=== PATIENT | female | born 1955 | race Caucasian/White ===

== ENCOUNTER 2017-11-20 08:49 | Observation (INO) ==
--- NOTE | 2017-11-20 09:27 | Cat Scan Report ---
CLINICAL INFORMATION: History of multiple sclerosis. Code stroke COMPARISON: 01/14/2008 TECHNIQUE: Axial noncontrast-enhanced images through the brain. FINDINGS: No acute intracranial hemorrhage. No subdural hematoma. No subarachnoid hemorrhage. No intra-axial hematoma. There is extensive white matter disease in a predominantly periventricular distribution. Appearance is consistent with multiple sclerosis. No new focal intra-axial attenuation abnormality. No localized mass effect. No acute abnormality. There is cerebral atrophy are consistent with multiple sclerosis. No calvarial lesions. Temporal bones are negative. IMPRESSION: 1. Severe white matter abnormality consistent with multiple sclerosis 2. No acute intracranial abnormality. No intracranial hemorrhage The exam was performed using radiation dose optimization techniques including, but not limited to, automated exposure control, adjustment of the mA and/or kV according to patient size and use of iterative reconstruction technique. Interpreted and Authenticated by: Haroon Sandoval 11/20/17
[2017-11-20 09:49] LABS: Basophils # (Auto) 0.1 K/mcL (0.0-0.3); Basophils % (Auto) 0.7 % (0.0-2.0); Eosinophils # (Auto) 0.2 K/mcL (0.0-0.7); Eosinophils % (Auto) 1.5 % (0.0-7.0); Granulocytes % (Auto) 88.1 % (38.0-78.0); Lymphocytes # (Auto) 0.7 K/mcL (1.5-4.8); Lymphocytes % (Auto) 5.7 % (15.5-49.0); Mean Cell Volume 94.7 fL (80.0-100.0); Mean Corpuscular HGB Conc 33.8 g/dL (31.0-36.0); Monocytes # (Auto) 0.5 K/mcL (0.1-0.9); Platelet Count 281 K/mcL (140-440); RBC 4.91 M/mcL (4.00-5.20); Red Cell Distribution Width 13.7 % (11.5-14.5)
[2017-11-20 10:10] LABS: ALT/SGPT 58 U/l (0-40); Albumin 3.8 gm/dL (3.2-5.2); Albumin/Globulin Ratio 1.3 (1.0-2.3); Alkaline Phosphatase 76 U/L (39-117); Blood Urea Nitrogen 16 mg/dl (8-23)
[2017-11-20 11:20] LABS: Appearance,Urine TURBID; Bacteria,Urine MANY /hpf (0); Bilirubin,Urine NEG (NEG); Color,Urine YELLOW; Glucose,Urine (UA) NEGATIVE (NEG); Leukocyte Esterase,Urine 250 /uL (NEG); Protein,Urine 100 mg/dL (NEG); Specific Gravity,Urine 1.013 (1.000-1.035); Urine Amorphous Crystals MOD /hpf (0); Urine Blood 0.2 mg/dL (<0.03); Urine RBC 100 /hpf (0-1); Urine Squamous Epithelial Cell 17 /hpf (0-4); Urine Transitional Epi Cells 2 /hpf (0-2); Urine WBC > 182 /hpf (0-4); Urobilinogen,Urine NEG (NEG)
[2017-11-20] MEDS ORDERED: cefTRIAXone 1 GM VIAL IV ONE ×2 (11:28→20:00)
[2017-11-20] MEDS ORDERED: 0.9 % SODIUM CHLORIDE 3,000 ML IV ONE (11:30)
--- NOTE | 2017-11-20 16:11 | Emergency Department Note ---
Neuro HPI - General Chief Complaint: Stroke Symptoms Stated Complaint: Stroke symptoms Time Seen by Provider: 11/20/17 09:11 Source: family, EMS Mode of arrival: EMS Limitations: no limitations - History of Present Illness HPI Narrative: 62-year-old female with known severe MS that is bedbound comes in for slurred speech and facial droop starting this morning. was last seen well 8 PM last night so it is unclear when this actually happened. She is also had increased somnolence and a temperature 100.2. She is not breathing as well as she usually does. She has additional findings of left arm weakness. NIH stroke scale shows 10 and ABCD2 score is 5 Notably she has a history of multiple urinary tract infections last seen by Trina DOMÍNGUEZ in urology and placed on Macrobid for 1 dose so far. - Related Data Home Medications: Home Medications Medication Instructions Recorded Confirmed aspirin 81 mg tablet,delayed 81 mg PO QHS tab 03/27/15 11/20/17 release coenzyme Q10 10 mg capsule 30 mg PO QDAY cap 03/27/15 11/20/17 flaxseed 1,000 mg capsule 1,000 mg .ROUTE .MEDSUPPLY 03/27/15 11/20/17 cranberry 400 mg capsule 400 mg PO DAILY 08/21/15 11/20/17 magnesium oxide 400 mg capsule 400 mg PO QHS 09/23/16 11/20/17 baclofen 10 mg tablet 10 mg PO QHS 30 Days #30 tab 03/30/17 11/20/17 omega-3 fatty acids 1 cap PO QDAY 03/30/17 11/20/17 oxcarbazepine 150 mg tablet 150 mg PO BID 30 Days #60 tab 03/30/17 11/20/17 Nitrofurantoin Macrocrystal 100 mg PO Q12H 11/20/17 11/20/17 [Nitrofurantoin] Gabapentin [Neurontin] 600 mg PO DAILY 11/21/17 11/21/17 Gabapentin [Neurontin] 900 mg PO HS 11/21/17 11/21/17 Previous Rx's Medication Instructions Recorded simvastatin 20 mg tablet 20 mg PO QPM #30 tab 06/07/17 solifenacin 5 mg tablet 5 mg PO QDAY #90 tab 10/25/17 Allergies/Adverse Reactions: Allergies Allergy/AdvReac Type Severity Reaction Status Date / Time Sulfa (Sulfonamide AdvReac Verified 11/20/17 08:51 Antibiotics) tape Allergy Unknown Unknown Uncoded 09/15/17 10:01 Review of Systems All systems ED: reviewed and negative except as stated. Past Medical History - Past Medical History Medical history: Reports: hyperlipidemia, other (Multiple sclerosis with neurogenic bladder and incontinence, recurrent UTIs, trigeminal neuralgia) UNDERWRITER history: Reports: bilateral tubal ligation Surgical history ED: Reports: cholecystectomy, CHELSEY/BSO - Social History smoking status: Former smoker Physical Exam Overweight female no acute distress resting comfortably. Normocephalic atraumatic. Conjunctive are clear sclerae nonicteric. No nasal discharge or congestion. Oropharynx is pink and moist. There is a slight facial droop on the left. Neck is supple without lymphadenopathy thyromegaly. Heart is regular rate and rhythm no murmur appreciated. Lungs are clear auscultation bilaterally without wheezes rales rhonchi or respiratory distress. Abdomen soft nontender nondistended. She is wearing an adult diaper. +2 radial pulse. No pedal edema. She has not moving her left leg well and it does appear decreased sensation. However this is not new. Left arm seems to be less well controlled and regional driver is weaker. Also on cranial nerve exam she does not want to move her eyes to the left although she has normal movement to the right up and down. It is unclear what is chronic but left-sided arm findings and facial droop to appear to be new per her significant other who is there for the interview and exam Limitations: no limitations Course Vital Signs Temperature 100.2 F H 11/20/17 08:51 Pulse Rate 137 H 11/20/17 08:51 Respiratory Rate 20 11/20/17 08:51 Blood Pressure 122/71 11/20/17 08:51 Pulse Oximetry (%) 93 11/20/17 08:51 Temperature 98.8 F 11/21/17 00:00 Pulse Rate 82 11/20/17 18:01 Respiratory Rate 16 11/21/17 00:00 Blood Pressure 139/82 11/21/17 00:00 Pulse Oximetry (%) 93 11/21/17 00:00 Neuro Symptoms/Deficit - Lab Data Lab results reviewed: Yes I reviewed the patient's lab results. Result diagrams: 11/21/17 03:30 11/21/17 03:30 Lab Results 11/20/17 11/20/17 11/20/17 Range/Units 09:19 09:19 09:19 WBC 12.8 H (4.5-11.0) K/mcL RBC 4.91 (4.00-5.20) M/mcL Hgb 15.7 H (12.0-15.0) g/dL Hct 46.5 (36.0-48.0) % POC Hct 48.0 (36.0-48.0) % MCV 94.7 (80.0-100.0) fL MCH 32.0 (26.0-34.0) pg MCHC 33.8 (31.0-36.0) g/dL RDW 13.7 (11.5-14.5) % Plt Count 281 (140-440) K/mcL MPV 9.5 (7.4-10.4) fL Gran % 88.1 H (38.0-78.0) % Lymph % (Auto) 5.7 L (15.5-49.0) % [place] % (Auto) 4.0 (1.0-12.0) % Eos % (Auto) 1.5 (0.0-7.0) % Baso % (Auto) 0.7 (0.0-2.0) % Gran # 11.3 H (1.8-8.0) K/mcL Lymph # (Auto) 0.7 L (1.5-4.8) K/mcL [place] # (Auto) 0.5 (0.1-0.9) K/mcL Eos # (Auto) 0.2 (0.0-0.7) K/mcL Baso # (Auto) 0.1 (0.0-0.3) K/mcL POC PT 12.9 (11.9-14.5) sec POC INR 1.1 (0.9-1.2) APTT 31 (20-37) sec POC Sodium 142 (133-145) mmol/L Sodium 140 (133-145) mmol/L POC Potassium 3.8 (3.3-5.1) mmol/L Potassium 3.9 (3.3-5.1) mmol/L POC Chloride 108 (96-108) mmol/L Chloride 103 (96-108) mmol/L Carbon Dioxide 20 L (22-30) mmol/L POC Total CO2 24 (22-30) mmol/L Anion Gap 17.0 H (8-16) POC BUN 17 (8-23) mg/dl BUN 16 (8-23) mg/dl Creatinine 1.0 (0.6-1.1) mg/dl POC Creatinine 0.9 (0.6-1.1) mg/dl GFR Calculation 61 Glucose 134 H (70-105) mg/dL POC Glucose 139 H (70-105) mg/dL Calcium 8.9 (8.6-10.4) mg/dl POC WB Ioniz Calcium 1.08 L (1.16-1.32) mmol/L Magnesium (1.6-2.5) mg/dL Total Bilirubin 0.6 (0.0-1.0) mg/dL AST 34 (0-37) U/l ALT 58 H (0-40) U/l Alkaline Phosphatase 76 (39-117) U/L Troponin T (0-0.03) ng/ml Total Protein 6.7 (5.9-8.4) gm/dL Albumin 3.8 (3.2-5.2) gm/dL Globulin 2.9 (2.2-3.7) gm/dL Albumin/Globulin Ratio 1.3 (1.0-2.3) Urine Color Urine Appearance Urine pH (5.0-9.0) Ur Specific [place] (1.000-1.035) Urine Protein (NEG) mg/dL Urine Glucose (UA) (NEG) mg/dL Urine Ketones (NEG) mg/dL Urine Occult Blood (<0.03) mg/dL Urine Nitrate (NEG) Urine Bilirubin (NEG) mg/dL Urine Urobilinogen (NEG) mg/dL Ur Leukocyte Esterase (NEG) /uL Urine RBC (0-1) /hpf Urine WBC (0-4) /hpf Ur Squamous Epith Cells (0-4) /hpf Ur Transition Epith Cell (0-2) /hpf Amorphous Crystals (0) /hpf Urine Bacteria (0) /hpf Ur Culture Indicated? Influenza A (Rapid) Influenza B (Rapid) 11/20/17 11/20/17 11/20/17 Range/Units 09:19 09:19 10:18 WBC (4.5-11.0) K/mcL RBC (4.00-5.20) M/mcL Hgb (12.0-15.0) g/dL Hct (36.0-48.0) % POC Hct (36.0-48.0) % MCV (80.0-100.0) fL MCH (26.0-34.0) pg MCHC (31.0-36.0) g/dL RDW (11.5-14.5) % Plt Count (140-440) K/mcL MPV (7.4-10.4) fL Gran % (38.0-78.0) % Lymph % (Auto) (15.5-49.0) % [place] % (Auto) (1.0-12.0) % Eos % (Auto) (0.0-7.0) % Baso % (Auto) (0.0-2.0) % Gran # (1.8-8.0) K/mcL Lymph # (Auto) (1.5-4.8) K/mcL [place] # (Auto) (0.1-0.9) K/mcL Eos # (Auto) (0.0-0.7) K/mcL Baso # (Auto) (0.0-0.3) K/mcL POC PT (11.9-14.5) sec POC INR (0.9-1.2) APTT (20-37) sec POC Sodium (133-145) mmol/L Sodium (133-145) mmol/L POC Potassium (3.3-5.1) mmol/L Potassium (3.3-5.1) mmol/L POC Chloride (96-108) mmol/L Chloride (96-108) mmol/L Carbon Dioxide (22-30) mmol/L POC Total CO2 (22-30) mmol/L Anion Gap (8-16) POC BUN (8-23) mg/dl BUN (8-23) mg/dl Creatinine (0.6-1.1) mg/dl POC Creatinine (0.6-1.1) mg/dl GFR Calculation Glucose (70-105) mg/dL POC Glucose (70-105) mg/dL Calcium (8.6-10.4) mg/dl POC WB Ioniz Calcium (1.16-1.32) mmol/L Magnesium 1.9 (1.6-2.5) mg/dL Total Bilirubin (0.0-1.0) mg/dL AST (0-37) U/l ALT (0-40) U/l Alkaline Phosphatase (39-117) U/L Troponin T < 0.01 (0-0.03) ng/ml Total Protein (5.9-8.4) gm/dL Albumin (3.2-5.2) gm/dL Globulin (2.2-3.7) gm/dL Albumin/Globulin Ratio (1.0-2.3) Urine Color Urine Appearance Urine pH (5.0-9.0) Ur Specific [place] (1.000-1.035) Urine Protein (NEG) mg/dL Urine Glucose (UA) (NEG) mg/dL Urine Ketones (NEG) mg/dL Urine Occult Blood (<0.03) mg/dL Urine Nitrate (NEG) Urine Bilirubin (NEG) mg/dL Urine Urobilinogen (NEG) mg/dL Ur Leukocyte Esterase (NEG) /uL Urine RBC (0-1) /hpf Urine WBC (0-4) /hpf Ur Squamous Epith Cells (0-4) /hpf Ur Transition Epith Cell (0-2) /hpf Amorphous Crystals (0) /hpf Urine Bacteria (0) /hpf Ur Culture Indicated? Influenza A (Rapid) Presumed negative Influenza B (Rapid) Presumed negative 11/20/17 Range/Units 10:37 WBC (4.5-11.0) K/mcL RBC (4.00-5.20) M/mcL Hgb (12.0-15.0) g/dL Hct (36.0-48.0) % POC Hct (36.0-48.0) % MCV (80.0-100.0) fL MCH (26.0-34.0) pg MCHC (31.0-36.0) g/dL RDW (11.5-14.5) % Plt Count (140-440) K/mcL MPV (7.4-10.4) fL Gran % (38.0-78.0) % Lymph % (Auto) (15.5-49.0) % [place] % (Auto) (1.0-12.0) % Eos % (Auto) (0.0-7.0) % Baso % (Auto) (0.0-2.0) % Gran # (1.8-8.0) K/mcL Lymph # (Auto) (1.5-4.8) K/mcL [place] # (Auto) (0.1-0.9) K/mcL Eos # (Auto) (0.0-0.7) K/mcL Baso # (Auto) (0.0-0.3) K/mcL POC PT (11.9-14.5) sec POC INR (0.9-1.2) APTT (20-37) sec POC Sodium (133-145) mmol/L Sodium (133-145) mmol/L POC Potassium (3.3-5.1) mmol/L Potassium (3.3-5.1) mmol/L POC Chloride (96-108) mmol/L Chloride (96-108) mmol/L Carbon Dioxide (22-30) mmol/L POC Total CO2 (22-30) mmol/L Anion Gap (8-16) POC BUN (8-23) mg/dl BUN (8-23) mg/dl Creatinine (0.6-1.1) mg/dl POC Creatinine (0.6-1.1) mg/dl GFR Calculation Glucose (70-105) mg/dL POC Glucose (70-105) mg/dL Calcium (8.6-10.4) mg/dl POC WB Ioniz Calcium (1.16-1.32) mmol/L Magnesium (1.6-2.5) mg/dL Total Bilirubin (0.0-1.0) mg/dL AST (0-37) U/l ALT (0-40) U/l Alkaline Phosphatase (39-117) U/L Troponin T (0-0.03) ng/ml Total Protein (5.9-8.4) gm/dL Albumin (3.2-5.2) gm/dL Globulin (2.2-3.7) gm/dL Albumin/Globulin Ratio (1.0-2.3) Urine Color Yellow Urine Appearance Turbid Urine pH 7.0 (5.0-9.0) Ur Specific [place] 1.013 (1.000-1.035) Urine Protein 100 A (NEG) mg/dL Urine Glucose (UA) Negative (NEG) mg/dL Urine Ketones 5/tr A (NEG) mg/dL Urine Occult Blood 0.2 A (<0.03) mg/dL Urine Nitrate Pos A (NEG) Urine Bilirubin Neg (NEG) mg/dL Urine Urobilinogen Neg (NEG) mg/dL Ur Leukocyte Esterase 250 A (NEG) /uL Urine RBC 100 H (0-1) /hpf Urine WBC > 182 H (0-4) /hpf Ur Squamous Epith Cells 17 H (0-4) /hpf Ur Transition Epith Cell 2 (0-2) /hpf Amorphous Crystals Mod A (0) /hpf Urine Bacteria Many A (0) /hpf Ur Culture Indicated? No Influenza A (Rapid) Influenza B (Rapid) - Radiology Data Radiology results reviewed: Yes I reviewed the patient's radiology results. CT scan of the head shows no change since 2007 but does show chronic findings of severe MS white matter changes MRI and MRA of the brain showed no acute findings - EKG Data EKG attestation: Yes I reviewed and interpreted this EKG. EKG results narrative: EKG shows a rate of [address] depression in 1 to aVL V2 through V6-these are mild. [place]. Mildly long QT. I do not have a comparison Disposition Pt seen by CROWNING HAMMER OPERATOR/PA only: No Clinical Impression: Multiple sclerosis TIA (transient ischemic attack) Qualifiers: Transient cerebral ischemia type: unspecified Qualified Code(s): G45.9 - Transient cerebral ischemic attack, unspecified Urinary tract infection Qualifiers: Urinary tract infection type: acute cystitis Hematuria presence: with hematuria Qualified Code(s): N30.01 - Acute cystitis with hematuria Summary: Usually she is worked up for CVA/TIA versus other pathology. Despite her high NIH score she would not be eligible for TPA as last seen normal was 8 PM last night and she is out of the [address] scan was negative she has evidence of UTI which may account for confusion and slurred speech-she has had that before with previous UTIs. We started Rocephin for that Her left arm as well as the confusion and slurred speech did resolve over the course of her hospital stay but it is unclear if this is a TIA and so MRI/MRA of brain was ordered-this did not show acute findings either Was uncomfortable letting her go home as she clearly had new neurologic deficit this morning. ABCD 2 score is elevated and so recommended for observation overnight to further sort out issues. Dr. Hall the hospitalist agreed to accept the patient for further care and evaluation Disposition: Xfer As Inpt ([facility]) Condition: Fair
[2017-11-20] MEDS ORDERED: ONDANSETRON 4 MG/2 ML VIAL IV PRN (19:35)
[2017-11-20] MEDS ORDERED: NALOXONE HCL 0.4 MG/ML VIAL IV PRN (19:35)
[2017-11-20] MEDS ORDERED: ACETAMINOPHEN 325 MG TABLET PO PRN (19:35)
--- NOTE | 2017-11-20 19:42 | Internal Med History&Physical ---
Medical - H&P: HPI Patient information: Note initiated : 11/20/17 at 7:39 pm Service Date, if different from initiated Date: [] Patient: Bridgette Cuevas 62 y/o F admitted on 11/20/17 for Stroke symptoms. Chief Complaint: [] History of present illness: Ms. Cuevas is a 62 year old Female with severe multiple sclerosis, bedbound often times and ambulates with the use of a wheelchair living at home with her boyfriend caregiver presents to the emergency room with acute neurological symptoms. Patient has been struggling with recurrent urinary tract infections for the last 2 months. Her primary care physician has given her 2 rounds of antibiotics and cultures have been mixed as per the patient. The patient was okay yesterday when she went to bed, this morning when she woke up around 830 the patient caregiver noticed that the patient is more confused drowsy had slurring of speech and had weakness on the left side of the body. Some documentation the ED notes facial weakness however the patient caregiver clearly denied any change in the facial symmetry when he saw the patient in the morning. There was a concern that the patient was not able to move her left leg wiggle her left toes and had decreased sensation on the left side of the leg. She also was not able to raise the left hand as high as possible. Given that she was out the window for stroke activation, stroke team was not consulted. Patient underwent a head CT in the emergency room which was reported as negative, however had significant multiple sclerosis. The patient then later on underwent an MRI of the head as well as angiogram of the head which according to the ED physician is reported as negative. In the emergency room patient had low-grade temperature with a temperature of 100.2, was tachycardic ranging from 90-140, blood pressure was stable and she was saturating 99% on room air. The patient's EKG was sinus tachycardia, her UA was suggestive of a urinary tract infection, flu test was negative, she had elevated leukocytosis with WBC count of 12.8, hemoglobin 15 platelets 281. Basic metabolic profile is unremarkable creatinine is 1. Given that patient had acute neurological symptoms which resolved during the ER stay, the fact that she has a UTI patient was admitted to the hospital for further management. All systems: reviewed and no additional remarkable complaints except as stated Medical - H&P: PMH Medical history: Medical History (Last Reviewed 09/15/17 @ 10:17 by CATRACHITA Goldsmith) Trigeminal neuralgia (Chronic) Urinary tract infection (Chronic) Urinary incontinence (Chronic) Spasm of muscle (Chronic) Personal history of urinary tract infection (Chronic) Pain in limb (Chronic) Obesity (Chronic) Neurogenic bladder (Chronic) Multiple sclerosis (Chronic) Hyperlipidemia (Chronic) Hip fracture (Chronic) Fatigue (Chronic) Hypertonicity of bladder (Chronic) Surgical history: Past Surgical History (Last Reviewed 09/15/17 @ 10:17 by CATRACHITA Goldsmith) History of tubal ligation (Chronic) S/P CHELSEY-BSO (Chronic) History of cholecystectomy (Chronic) Pertinent family history: Family History (Last Reviewed 09/15/17 @ 10:17 by CATRACHITA Goldsmith) Father Rheumatoid arthritis Essential hypertension Grandmother Diabetes mellitus Essential hypertension Malignant neoplasm of ovary Mother Essential hypertension Migraine Medical - H&P: Meds Home Medications Medication Instructions Recorded Confirmed Type aspirin 81 mg tablet,delayed 81 mg PO QDAY tab 03/27/15 09/15/17 History release calcium carbonate 500 mg (1,250 1 tab PO QDAY tab 03/27/15 09/15/17 History mg)-vitamin D3 125 unit tablet coenzyme Q10 10 mg capsule 30 mg PO QDAY cap 03/27/15 09/15/17 History flaxseed 1,000 mg capsule See Dose Instructions .ROUTE 03/27/15 09/15/17 History .MEDSUPPLY underpads See Dose Instructions .ROUTE 03/27/15 09/15/17 History .MEDSUPPLY cranberry 400 mg capsule 400 mg PO BID 08/21/15 09/15/17 History magnesium oxide 400 mg capsule 400 mg PO QDAY 09/23/16 09/15/17 History Briefs, Gloves and [place] Vinyl #1 each 11/17/16 09/15/17 Rx Underpad baclofen 10 mg tablet 10 mg PO QDAY 30 Days #30 tab 03/30/17 09/15/17 History gabapentin 300 mg capsule 2,100 mg PO QDAY 30 Days #210 cap 03/30/17 09/15/17 History omega-3 fatty acids 1 cap PO QDAY 03/30/17 09/15/17 History oxcarbazepine 150 mg tablet 150 mg PO BID 30 Days #60 tab 03/30/17 09/15/17 History simvastatin 20 mg tablet 20 mg PO QPM #30 tab 06/07/17 09/15/17 Rx solifenacin 5 mg tablet 5 mg PO QDAY #90 tab 10/25/17 Rx nitrofurantoin macrocrystal 100 mg 100 mg PO Q12H 7 Days #14 cap 11/19/17 Rx capsule Allergies Allergy/AdvReac Type Severity Reaction Status Date / Time Sulfa (Sulfonamide AdvReac Verified 11/20/17 08:51 Antibiotics) tape Allergy Unknown Unknown Uncoded 09/15/17 10:01 Medical - H&P: Exam - Constitutional Vitals: Temp Pulse Resp BP Pulse Ox 100.2 F H 82 23 H 112/78 95 11/20/17 08:51 11/20/17 18:01 11/20/17 18:48 11/20/17 18:01 11/20/17 18:01 Exam: GENERAL: The patient is a well-developed, well-nourished in no apparent distress. Is alert and oriented x3. Patient is obese VITAL SIGNS: Reviewed and as noted elsewhere. HEENT: Head is normocephalic and atraumatic. Extraocular muscles are intact. Pupils are equal, round, and reactive to light. Nares appeared normal. Mouth appears any without lesions. Mucous membranes are moist. NECK: Normal to inspection, Supple, No lymphadenopathy or thyromegaly. LUNGS: Air entry equal on both sides, no wheezing, crackles or rhonchi noted. No accessory muscles of respiration HEART: Regular rate and rhythm normal, S1 and S2 heard, no Gallop, S3 or Rub Noted, No Gross murmur heard. ABDOMEN: Soft, nontender, and nondistended. Positive bowel sounds. No hepatosplenomegaly was noted. EXTREMITIES: No cyanosis, clubbing, rash, lesions or edema. NEUROLOGIC: Patient is alert oriented 3, cranial nerves are negative, patient has squint on ocular exam which patient reports is chronic, pupils are reactive to light bilaterally and symmetrical. The patient has good extraocular movements. The patient motor strength is approximately 4 x 5 in bilateral upper extremities and 3 x 5 in bilateral lower extremities. Her sensations are symmetrical in all 4 extremities. The overall weakness but is noticed is attributed to multiple sclerosis, patient notes that she is at her baseline neurological function PSYCHIATRIC: Normal affect, Normal Mood. Appropriate Behavior. SKIN: No ulceration or wounds noted, No jaundice, No rash noted. Medical - H&P: Reslt - Labs CBC & Chem 7: 11/20/17 09:19 11/20/17 09:19 Labs: Short CBC 11/20/17 Range/Units 09:19 WBC 12.8 H (4.5-11.0) K/mcL Hgb 15.7 H (12.0-15.0) g/dL Hct 46.5 (36.0-48.0) % Plt Count 281 (140-440) K/mcL BMP 11/20/17 09:19 Sodium 140 Potassium 3.9 Chloride 103 Carbon Dioxide 20 L BUN 16 Creatinine 1.0 Glucose 134 H Calcium 8.9 Cardiac Enzymes 11/20/17 Range/Units 09:19 Troponin T < 0.01 (0-0.03) ng/ml Liver Function 11/20/17 Range/Units 09:19 Total Bilirubin 0.6 (0.0-1.0) mg/dL AST 34 (0-37) U/l ALT 58 H (0-40) U/l Alkaline Phosphatase 76 (39-117) U/L Albumin 3.8 (3.2-5.2) gm/dL Urine 11/20/17 Range/Units 10:37 Urine Color Yellow Urine Appearance Turbid Urine pH 7.0 (5.0-9.0) Ur Specific [place] 1.013 (1.000-1.035) Urine Protein 100 A (NEG) mg/dL Urine Glucose (UA) Negative (NEG) mg/dL Medical - H&P: A/P - Narrative A/P Narrative: A/P TIA Pseudoflare up of MS Urinary tract infection Hyperlipidemia Hypertension Chr pain Trigeminial Neuralgia Plan Observe on tele IV rocephin for UTI, await culture results Not entirely sure the patient had a TIA or just with exacerbation of MS however the patient had predominantly left-sided symptoms and dysarthria without a facial involvement it could be that she had a small TIA. MRI head is negative. Get echocardiogram get carotid duplex, monitor on telemetry for 24 hours. Patient already is on aspirin, supposed to be on statin but has not been taking seem educated at length the need to take statin drug patient still seems hesitant will start the patient on atorvastatin 40 mg at least for now. Resume home medications as tolerated DVT heparin subcu Diet regular Full code Medical - H&P: Qual - Stroke Onset of Symptoms Date: 11/19/17 Onset of Symptoms Time: 22:30 Symptom Onset Unknown: Yes Social History - Social History marital status: life partner occupational status: disabled - Tobacco smoking status: Former smoker - Alcohol alcohol intake frequency: 0-2 drinks per day
[2017-11-20] MEDS ORDERED: ATORVASTATIN 20 MG TABLET PO SCH (21:00)
[2017-11-20] MEDS: HEPARIN 5,000 UNIT/ML VIAL SQ SCH (23:10)
[2017-11-20] MEDS: 0.9 % SODIUM CHLORIDE 10 ML SYRINGE IV SCH (23:11)
[2017-11-21 05:00] LABS: Basophils # (Auto) 0 K/mcL (0.0-0.3); Basophils % (Auto) 0.3 % (0.0-2.0); Eosinophils # (Auto) 0.4 K/mcL (0.0-0.7); Granulocytes % (Auto) 71.8 % (38.0-78.0); Lymphocytes # (Auto) 1.2 K/mcL (1.5-4.8); Mean Cell Volume 95.3 fL (80.0-100.0); Mean Corpuscular HGB Conc 33.4 g/dL (31.0-36.0); Mean Corpuscular Hemoglobin 31.8 pg (26.0-34.0); Monocytes # (Auto) 0.4 K/mcL (0.1-0.9); Monocytes % (Auto) 5.9 % (1.0-12.0); Platelet Count 239 K/mcL (140-440); RBC 4.23 M/mcL (4.00-5.20); Red Cell Distribution Width 14.2 % (11.5-14.5)
[2017-11-21 05:31] LABS: ALT/SGPT 45 U/l (0-40); Albumin 3.6 gm/dL (3.2-5.2); Albumin/Globulin Ratio 1.6 (1.0-2.3); Alkaline Phosphatase 62 U/L (39-117); Bilirubin,Direct < 0.2 mg/dL (0.0-0.3); Blood Urea Nitrogen 8 mg/dl (8-23); Gamma Glutamyl Transpeptidase 41 U/L (5-36); HDL Cholesterol 41 mg/dl (>40); LDL Cholesterol,Calculated 113 mg/dl (SEE CHART); Uric Acid 6.3 mg/dL (2.5-8.0)
[2017-11-21] MEDS: 0.9 % SODIUM CHLORIDE 10 ML SYRINGE IV SCH ×2 (05:45→13:33)
[2017-11-21 06:07] LABS: Estimated Average Glucose(eAG) 94 mg/dL; Hemoglobin A1C 4.9 % HGB (4.0-6.0)
--- NOTE | 2017-11-21 08:42 | Magnetic Resonance Report ---
CLINICAL INFORMATION: History of multiple sclerosis. Increased leg weakness and left facial droop COMPARISON: None TECHNIQUE: Sagittal T1 FLAIR images. Axial DWI, T1 FLAIR, T2 FLAIR, T2, GRE. Coronal T2 FSE. FINDINGS: Diffusion weighted images are abnormal with multiple areas of increased signal. This is considered T2 shine through. No true restricted diffusion. No ADC abnormality. No evidence for acute infarction. White matter is diffusely abnormal with extensive signal abnormality in both cerebral hemispheres. Distribution is predominantly periventricular consistent with this patient's known multiple sclerosis. No focus of restricted diffusion to indicate acute demyelination. Contrast material was not administered. No susceptibility. No hemorrhagic abnormality. There is mild cerebral atrophy consistent with multiple sclerosis. No extra-axial, intracranial abnormality. Normal flow void within vessels at the base of the brain. There is mild inflammatory disease within ethmoid sinuses and maxillary sinuses, right worse on the left. Temporal bones are negative IMPRESSION: 1. Extensive white matter abnormality in both cerebral hemispheres consistent with this patient's known multiple sclerosis 2. No acute infarction. No restricted diffusion or ADC abnormality. 3. Mild cerebral atrophy secondary to multiple sclerosis 4. Mild inflammatory disease of the paranasal sinuses Interpreted and Authenticated by: Haroon Sandoval 11/21/17
[2017-11-21] MEDS: HEPARIN 5,000 UNIT/ML VIAL SQ SCH (09:47)
[2017-11-21] MEDS: cefTRIAXone 2 GM in DEXTROSE 5% IN WATER 50 ML IV SCH ×2 (13:32→13:59)
--- NOTE | 2017-11-21 13:46 | Discharge Summary ---
Medical - DS: Prov Patient information: Note initiated : 11/21/17 at 1:43 pm Service Date, if different from initiated Date: [] Patient: Bridgette Cuevas 62 y/o F admitted on 11/20/17 for Stroke symptoms. Chief Complaint: [] Date of admission: 11/20/17 19:00 Discharge date: 11/21/17 Primary care physician: Sen Paez Admitting clinician: Norman Hall Consults: 11/20/17 16:03 Consult to Physician [CONS] Stat Comment: Consulting Provider: Norman Hall Reason For Exam: Physician to Consult Discharging clinician: Norman Hall Medical - DS: Meds - Discharge Medications Prescriptions: Atorvastatin [Lipitor] 40 mg PO HS #30 tab Ciprofloxacin HCl [Cipro] 500 mg PO BID #10 tab Active and Home Medications: Home Medications aspirin 81 mg tablet,delayed release 81 mg PO QHS tab 03/27/15 [History Confirmed 11/20/17 Last Taken 11/19/17 20:30] coenzyme Q10 10 mg capsule 30 mg PO QDAY cap 03/27/15 [History Confirmed Last Taken 11/19/17 07:30] flaxseed 1,000 mg capsule 1,000 mg .ROUTE .MEDSUPPLY 03/27/15 [History Confirmed 11/20/17 Last Taken 11/19/17 20:30] cranberry 400 mg capsule 400 mg PO DAILY 08/21/15 [History Confirmed 11/20/17 Last Taken 11/19/17 07:30] magnesium oxide 400 mg capsule 400 mg PO QHS 09/23/16 [History Confirmed Last Taken 11/19/17 20:30] baclofen 10 mg tablet 10 mg PO QHS 30 Days #30 tab 03/30/17 [History Confirmed 11/20/17 Last Taken 11/19/17 20:30] omega-3 fatty acids 1 cap PO QDAY 03/30/17 [History Confirmed 11/20/17 Last Taken 11/19/17 07:30] oxcarbazepine 150 mg tablet 150 mg PO BID 30 Days #60 tab 03/30/17 [History Confirmed 11/20/17 Last Taken 11/19/17 20:30] simvastatin 20 mg tablet 20 mg PO QPM #30 tab 06/07/17 [Rx Confirmed 11/20/17 Last Taken 11/18/17 07:30] solifenacin 5 mg tablet 5 mg PO QDAY #90 tab 10/25/17 [Rx Confirmed 11/20/17 Last Taken 11/19/17 07:30] Nitrofurantoin Macrocrystal [Nitrofurantoin] 100 mg PO Q12H 11/20/17 [History Confirmed 11/20/17 Last Taken 11/19/17 12:00] Gabapentin [Neurontin] 600 mg PO DAILY 11/21/17 [History Confirmed 11/21/17 Last Taken 11/19/17 07:30] Gabapentin [Neurontin] 900 mg PO HS 11/21/17 [History Confirmed 11/21/17 Last Taken 11/20/17 20:30] Medical - DS: Hosp Hospital course: Ms. Cuevas is a 62 year old Female with severe multiple sclerosis, bedbound often times and ambulates with the use of a wheelchair living at home with her boyfriend caregiver presents to the emergency room with acute neurological symptoms. Patient has been struggling with recurrent urinary tract infections for the last 2 months. Her primary care physician has given her 2 rounds of antibiotics and cultures have been mixed as per the patient. The patient was okay yesterday when she went to bed, this morning when she woke up around 830 the patient caregiver noticed that the patient is more confused drowsy had slurring of speech and had weakness on the left side of the body. Some documentation the ED notes facial weakness however the patient caregiver clearly denied any change in the facial symmetry when he saw the patient in the morning. There was a concern that the patient was not able to move her left leg wiggle her left toes and had decreased sensation on the left side of the leg. She also was not able to raise the left hand as high as possible. Given that she was out the window for stroke activation, stroke team was not consulted. Patient underwent a head CT in the emergency room which was reported as negative, however had significant multiple sclerosis. The patient then later on underwent an MRI of the head as well as angiogram of the head which according to the ED physician is reported as negative. In the emergency room patient had low-grade temperature with a temperature of 100.2, was tachycardic ranging from 90-140, blood pressure was stable and she was saturating 99% on room air. The patient's EKG was sinus tachycardia, her UA was suggestive of a urinary tract infection, flu test was negative, she had elevated leukocytosis with WBC count of 12.8, hemoglobin 15 platelets 281. Basic metabolic profile is unremarkable creatinine is 1. Given that patient had acute neurological symptoms which resolved during the ER stay, the fact that she has a UTI patient was admitted to the hospital for further managementIn the hospital the patient TIA-it is not clear of the patient's symptoms are related to TIA versus UTI versus pseudo-MS flare. Patient's symptoms had resolved by the time she was admitted to the hospital. She was monitored overnight on telemetry with no significant arrhythmias. Echocardiogram was done carotid duplex was done reports of the studies are pending, the drug list in the computer system we are not sure how long it will take for the studies to be reported. I have advised the patient to follow-up with the PCP to get reports and further plan, MRA of the head result is officially pending. MRI is negative for acute stroke. Was extensive multiple sclerosis disease. The patient is supposed to be on aspirin 81 which he takes, she is supposed to be on a statin which he says she does not usually take. Point in time I would just advise her to continue aspirin therapy and strongly advocated that she consider taking a statin. I will prescribe her atorvastatin 40 mg once a day. The patient had a normal A1c 4.9, LDL was 113. Urinary tract infection-patient had symptoms of a UTI burning urine, elevated WBC count, confusion as well as UA suggestive of a UTI. She was given Rocephin with improvement in symptoms, she will be discharged on ciprofloxacin 500 mg twice a day for 5 more days to complete a 7 day course of treatment. Major side effects of medications reviewed all questions answered The rest of the stay in the hospital was unremarkable, at the time of discharge patient is tolerating p.o., in good spirits wanting to go home, back to her baseline Discharge diagnosis: TIA, AMS, UTI - Time Spent with Patient Total time spent providing and/or coordinating discharge services: Greater than 30 minutes Medical - DS: Exam - Constitutional Vitals: Vital Signs Temp Pulse Pulse Resp BP BP BP 11/21/17 12:00 98.5 F 79 18 129/90 11/21/17 08:45 97.6 F 74 18 138/77 11/21/17 04:00 99.3 F H 16 131/83 11/21/17 00:00 98.8 F 16 139/82 11/20/17 19:35 99.6 F H 18 126/99 11/20/17 19:18 99.6 F H 18 126/99 11/20/17 18:51 15 125/79 11/20/17 18:48 23 H 11/20/17 18:01 82 16 112/78 11/20/17 17:46 46 L 0 L 135/92 11/20/17 17:31 15 133/109 11/20/17 17:16 15 135/93 11/20/17 17:05 18 109/73 11/20/17 17:01 87 17 109/73 11/20/17 16:46 81 15 117/72 11/20/17 16:33 82 14 128/67 11/20/17 16:16 80 17 125/79 11/20/17 16:01 17 117/60 11/20/17 15:54 41 H 117/92 11/20/17 15:46 69 117/92 11/20/17 15:33 75 108/61 11/20/17 15:28 83 103/73 11/20/17 15:16 103/73 11/20/17 15:01 24 H 149/134 11/20/17 13:45 92 H 13 109/71 Pulse Ox 11/21/17 12:00 95 11/21/17 08:45 97 11/21/17 04:00 92 11/21/17 00:00 93 11/20/17 19:35 95 11/20/17 19:18 95 11/20/17 18:51 18 18:48 11/20/17 18:01 95 11/20/17 17:46 80 L 11/20/17 17:31 11/20/17 17:16 11/20/17 17:05 11/20/17 17:01 93 11/20/17 16:46 98 11/20/17 16:33 96 11/20/17 16:16 90 11/20/17 16:01 11/20/17 15:54 11/20/17 15:46 90 11/20/17 15:33 96 11/20/17 15:28 99 11/20/17 15:16 03/24/18 15:01 11/20/17 13:45 100 Intake and Output 11/20/17 11/21/17 11/21/17 21:59 05:59 13:59 Intake Total 3000 / 3000 100 / 100 200 / 200 Output Total 800 / 800 900 / 900 Balance 2200 / 2200 -800 / -800 200 / 200 Intake: IV 3000 / 3000 Sodium Chloride 0.9% 3,000 ml @ 3000 / 3000 Wide Open IV BOLUS ONE Rx#: [id number] Oral 100 / 100 200 / 200 Output: Urine Catheter Amount 650 / 650 900 / 900 Void Amount 150 / 150 Uretheral (Barba) 150 / 150 Other: Meal Lunch Percent of Meal Consumed 75% Feeding Ability Assist with Tray Set Up Stool Size Small Stool Color Brown Stool Consistency Liquid Loose # Bowel Movements 0 # of times incontinent of 1 Bowels Weight 226 lb 8 oz Additional comments: Constitutional; Afebrile, cooperative, alert, not in distress. Eyes- No icterus, , No periorbital swelling Ears- Ext ear normal, hearing normal to conversation. Neck- Midline trachea, supple Respiratory system: Air Entry equal on both sides, No crackles or wheezing, no rhonchi. CVS- Rate rhythm regular, S1,S2 heard, no gallop, no rub. 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 gen weakness , unchanged since yesterday Medical - DS: Data Labs on day of discharge: Labs from last 24 hours 11/21/17 11/21/17 03:30 03:30 WBC 7.4 RBC 4.23 Hgb 13.5 Hct 40.3 MCV 95.3 MCH 31.8 MCHC 33.4 RDW 14.2 Plt Count 239 MPV 9.6 Gran % 71.8 Lymph % (Auto) 16.0 Dukes % (Auto) 5.9 Eos % (Auto) 6.0 Baso % (Auto) 0.3 Gran # 5.3 Lymph # (Auto) 1.2 L Dukes # (Auto) 0.4 Eos # (Auto) 0.4 Baso # (Auto) 0 Sodium 143 Potassium 3.9 Chloride 109 H Carbon Dioxide 23 Anion Gap 11.0 BUN 8 Creatinine 0.8 GFR Calculation 80 Glucose 116 H Hemoglobin A1c 4.9 Estim Average Glucose 94 Uric Acid 6.3 Calcium 8.2 L Phosphorus 2.1 L Magnesium 2.0 Total Bilirubin 0.5 Direct Bilirubin < 0.2 GGT 41 H AST 27 ALT 45 H Alkaline Phosphatase 62 Lactate Dehydrogenase 217 Total Protein 5.9 Albumin 3.6 Globulin 2.3 Albumin/Globulin Ratio 1.6 Triglycerides 178 H Cholesterol 189 LDL Cholesterol, Calc 113 H Non-HDL Cholesterol 148 H HDL Cholesterol 41 TSH 1.38 Medical - DS: A/P - Patient/Caregiver Discharge Instructions Activity: increase activity as tolerated Diet: Cardiac Additional Instructions: Please follow-up with your primary care provider for review of the carotid duplex, MRA of the head and the echocardiogram. The studies were done to evaluate your risk for possible stroke. Due to a click in the computer system we were not able to get the readings of the studies before your discharge. It is very important that you follow-up with your primary care doctor and discuss this Please continue aspirin therapy and start taking atorvastatin 40 mg once a day. Stop the simvastatin. Take aspirin with food. If you notice any bleeding in the stools, black colored stools or bleeding in the urine please call your primary care provider or go to the emergency Follow-up with your primary care provider within a week He also had a urinary tract infection, take ciprofloxacin 500 mg twice a day for 5 more days If you have changes in mental status, worsening of symptoms, chest pain shortness of breath or any other concerning symptom please go to the emergency room Prescriptions: Atorvastatin [Lipitor] 40 mg PO HS #30 tab Ciprofloxacin HCl [Cipro] 500 mg PO BID #10 tab - Follow up Plan Follow up with: Sen Paez PA-C [Primary Care Provider] - (Call on Wednesday to schedule a hospital follow up in 5-10 days) Disposition: Home, Self-Care Prognosis: Fair Rehab Potential: Fair I certify that the patient requires SNF services: No Overall status at discharge: patient is back to baseline Medical - DS: Qual - VTE Deep Vein Thrombosis/Pulmonary Embolism Present on Admission: No
[2017-11-21] MEDS ORDERED: CIPROFLOXACIN 500 MG TABLET PO ONE (13:51)
--- NOTE | 2017-11-22 17:47 | Ultrasound Report ---
CLINICAL INFORMATION: Hypertension] chronic disease COMPARISON: 01/14/2008 TECHNIQUE: Spectral Doppler velocity measurements were obtained in the proximal, mid and distal common and internal carotid, both vertebral and proximal external carotid arteries bilaterally. Supplemental color and power Doppler imaging was also obtained to optimize stenosis detection. In reporting, any internal carotid stenosis was indirectly quantified comparing the distal internal carotid velocity. For ratio comparison, the internal carotid artery, at the level of stenosis, was utilized in the numerator and the normal distal internal carotid artery velocity was utilized as the denominator. Velocities are validated with angiographic measurements extrapolated from diameter data - as defined by the Society of Radiologists in Ultrasound Consensus Conference .Radiology 2003; 229; 340 - 346. FINDINGS: See worksheet by the technologist for velocities in PACS IMPRESSION: 1. Both common, internal and external carotid arteries are widely patent. Minimal thickening in both carotid bifurcation. 2. Antegrade flow present in both vertebral arteries Please correlate with CTA CT Angiography or MRA MR Angiography if surgery is contemplated. Interpreted and Authenticated by: Haroon Mckeon 11/22/17
--- NOTE | 2017-11-22 18:41 | Magnetic Resonance Report ---
CLINICAL INFORMATION: Slurred speech, question CVA. History of MS COMPARISON: None. TECHNIQUE: 3D [id number] SPGR was used to study the cerebral vasculature. FINDINGS: The intracranial internal carotid, vertebral, basilar, anterior, middle and posterior cerebral arteries and branches are normal in contour and caliber without occlusion, stenosis or other focal abnormality IMPRESSION: Normal Interpreted and Authenticated by: Haroon Mckeon 11/22/17
== END 2017-11-21 16:20 | disposition home or self-care (01) ==
LOC: ED 08:49 → ICU 08:49
PROVIDERS: ADMIT Internal Medicine; ATTEND Internal Medicine

== ENCOUNTER 2021-05-26 18:20 | Inpatient (IN) ==
[2021-05-26] MEDS ORDERED: IOPAMIDOL 100 ML BOTTLE IV ONE (18:21)
[2021-05-26] MEDS ORDERED: cefTRIAXone 2 GM in DEXTROSE 5% IN WATER 50 ML IV ONE (19:30)
[2021-05-26] MEDS ORDERED: 0.9 % SODIUM CHLORIDE 1,000 ML IV SCH (19:30)
[2021-05-26 20:33] LABS: ABG Methemoglobin 0.3 % (0.4-1.5); Total Hemoglobin 15.2 gm/Dl (12.0-15.0); VBG Base Excess -3 (-2-2); VBG HCO3 22.9 mmol/L (24.0-28.0); VBG Oxygen Saturation 37.5 % (40.0-70.0); VBG PH 7.36 U (7.32-7.42); VBG PO2 25.5 mmHg (25.0-40.0); VBG Total CO2 24.2 mmol/L (25.0-29.0)
[2021-05-26 20:37] LABS: Basophils # (Auto) 0.07 K/mcL (0.00-0.30); Basophils % (Auto) 0.5 % (0.0-2.0); Eosinophils # (Auto) 0.05 K/mcL (0.00-0.70); Eosinophils % (Auto) 0.4 % (0.0-7.0); Hematocrit 47.9 % (34.1-44.9); Lymphocytes # (Auto) 0.94 K/mcL (1.50-4.80); Mean Cell Volume 94.1 fL (80.0-100.0); Mean Corpuscular HGB Conc 31.3 g/dL (31.0-36.0); Mean Platelet Volume 10.8 fL (7.4-10.4); Monocytes # (Auto) 0.58 K/mcL (0.10-0.90); Monocytes % (Auto) 4.3 % (1.0-12.0); Neutrophils % (Auto) 87.8 % (38.0-78.0); Platelet Count 335 K/mcL (140-440); RBC 5.09 M/mcL (3.59-5.38); Red Cell Distribution Width 13.2 % (11.5-14.5); WBC 13.4 K/mcL (4.5-11.0)
[2021-05-26 20:58] LABS: Creatine Kinase 109 U/L (24-170)
[2021-05-26 20:59] LABS: ALT/SGPT 29 U/L (<40); AST/SGOT 33 U/L (<32); Albumin 3.4 gm/dL (3.2-5.2); Albumin/Globulin Ratio 0.8 (1.0-2.3); Alkaline Phosphatase 99 U/L (39-117); Blood Urea Nitrogen 27 mg/dL (8-23); Calcium 9.2 mg/dL (8.6-10.4); Carbon Dioxide 19 mmol/L (22-30); Chloride 90 mmol/L (96-108); Globulin 4.4 gm/dL (2.2-3.7); Glomerular Filtration Rate 67; Glucose 130 mg/dL (70-105)
[2021-05-26] MEDS ORDERED: 0.9 % SODIUM CHLORIDE 1,000 ML IV ONE (22:39)
--- NOTE | 2021-05-26 23:28 | Emergency Department Note ---
HPI General Chief complaint: Weakness Stated complaint: ulcer to coccyx, increased weakness Time Seen by Provider: 05/26/21 18:25 Source: patient and EMS Mode of arrival: EMS History of Present Illness HPI Narrative: Narrative: The patient is a 66-year-old female brought in by ambulance for weakness, confusion, skin infection, open wound, sores, large decubitus ulcer. The patient is present with her home health care provider who states that she has a large decubitus ulcer. He also states that she has chronic multiple sclerosis. Related Data Home Medications Medication Instructions Recorded Confirmed aspirin 81 mg tablet,delayed 81 mg PO QHS tab 03/27/15 01/25/20 release coenzyme Q10 10 mg capsule 30 mg PO QDAY cap 03/27/15 01/25/20 flaxseed 1,000 mg capsule 03/27/15 01/25/20 baclofen 10 mg tablet 10 mg PO QHS 30 Days #30 tab 03/30/17 01/25/20 Previous Rx's Medication Instructions Recorded gabapentin 300 mg capsule See Rx Instructions PO BID #450 cap 01/03/19 ciprofloxacin HCl 500 mg tablet 500 mg PO BID #14 tab 11/08/20 estradiol 1 g VAGINAL .2 XWEEK #42.5 g 11/08/20 ascorbate calcium (vitamin C) 500 500 mg PO BID #180 tab 02/13/21 mg tablet methenamine hippurate 1 gram tablet 1 g PO BID #60 tab 02/13/21 Allergies Allergy/AdvReac Type Severity Reaction Status Date / Time Sulfa (Sulfonamide AdvReac Unknown Unknown Verified 05/26/21 18:22 Antibiotics) tape Allergy Unknown Unknown Uncoded 09/12/19 10:32 Review of Systems ROS ROS Narrative: Narrative: All systems ED: reviewed and negative except as stated. [facility] Narrative Patient History Narrative: Narrative: Medical/Surgical/Family History All Active Problems (Updated 05/26/21 @ 23:34 by Shayan Capone DO) Decubitus ulcer (Acute) Cellulitis of sacral region (Acute) Hyponatremia (Acute) Leukocytosis (Acute) Medicare annual wellness visit, initial (Acute) TIA (transient ischemic attack) (Acute) Trigeminal neuralgia (Chronic) History of tubal ligation (Chronic) S/P CHELSEY-BSO (Chronic) History of cholecystectomy (Chronic) Urinary tract infection (Chronic) Urinary incontinence (Chronic) Spasm of muscle (Chronic) Personal history of urinary tract infection (Chronic) Pain in limb (Chronic) Obesity (Chronic) Neurogenic bladder (Chronic) Multiple sclerosis (Chronic) Hyperlipidemia (Chronic) Hip fracture (Chronic) Fatigue (Chronic) Hypertonicity of bladder (Chronic) Medical History Fatigue Hip fracture 1996 Hyperlipidemia Hypertonicity of bladder Medicare annual wellness visit, initial Multiple sclerosis Neurogenic bladder 08/09/14 Obesity 09/27/13 Pain in limb Personal history of urinary tract infection Spasm of muscle Trigeminal neuralgia 05/09/2015 - Dr. Gualberto Peña Urinary incontinence Urinary tract infection Surgical History History of cholecystectomy 2004 History of tubal ligation 1993 S/P CHELSEY-BSO 1995 Family History Father Rheumatoid arthritis Essential hypertension Grandmother Diabetes mellitus Essential hypertension Malignant neoplasm of ovary Mother Essential hypertension Migraine Social History Smoking Status: Former smoker Alcohol Intake Frequency: holiday/special occasion only Substance Use: does not use Exam Narrative Narrative: Narrative: General General appearance: Present alert and lethargic Head Head: Present atraumatic and normocephalic Eye Eye: Present normal appearance, PERRL and EOMI ENT ENT: Present normal exam, normal oropharynx and mucous membranes dry Neck Neck: Present normal inspection, full ROM and trachea midline Chest Chest: Present normal inspection and symmetric chest wall rise Respiratory Respiratory: Present normal lung sounds bilaterally Cardiovascular Cardiovascular: Present normal rhythm and tachycardia Adbominal Abdominal: Present soft and normal bowel sounds; Absent tenderness, guarding, rebound and organomegaly Rectal Rectal: Present other (large advanced stage 4 decubitus ulcer approximately 8 x 8 cm with deep exposure with oozing.) External: Present other (erythema, ulceration, maceration, swelling) Extremities Extremities: Present normal inspection and full ROM; Absent tenderness Back Back: Present normal inspection and full ROM; Absent tenderness Neurological Neurological: Present alert, oriented X3 and CN II-XII intact Psychiatric Psychiatric: Present normal affect Skin Skin: Present erythema and other (large advanced decubitus ulcer, swelling of the vulva) Course Course Course Narrative: EKG shows a rate of 134, sinus tachycardia, normal axis, no STEMI, nonspecific EKG. Patient is treated empirically for advanced cellulitis and advanced stage decubitus ulcer. She is dehydrated as well and received 2 L of IV fluids as well as 2 g of IV Rocephin. She feels much better I have attempted to admit this patient to our hospital but there are no beds available currently. I have also attempted to contact multiple other hospitals in the surrounding area however they have no available beds. 06:45 am. We are still unable to find placement for this patient. Care of this patient will be turned over to to Dr. Candelaria at shift change. Vital Signs Vital signs: Vital Signs Temperature 97.5 F 05/26/21 18:20 Pulse Rate 77 05/26/21 18:20 Respiratory Rate 17 05/26/21 18:20 Blood Pressure 124/111 05/26/21 18:20 Pulse Oximetry (%) 99 05/26/21 18:20 Temperature 97.5 F 05/26/21 18:20 Pulse Rate 87 05/27/21 06:30 Respiratory Rate 17 05/26/21 22:02 Blood Pressure 100/69 05/27/21 06:30 Pulse Oximetry (%) 96 05/27/21 06:30 MDM MDM Narrative Medical decision making narrative: Narrative: Lab Data Result diagrams: 05/26/21 20:12 05/26/21 20:12 Labs: Lab Results 05/26/21 05/26/21 05/26/21 Range/Units 20:06 20:12 20:12 WBC 13.4 H (4.5-11.0) K/mcL RBC 5.09 (3.59-5.38) M/mcL Hgb 15.0 (11.2-15.7) g/dL Hct 47.9 H (34.1-44.9) % MCV 94.1 (80.0-100.0) fL MCH 29.5 (26.0-34.0) pg MCHC 31.3 (31.0-36.0) g/dL RDW 13.2 (11.5-14.5) % Plt Count 335 (140-440) K/mcL MPV 10.8 H (7.4-10.4) fL Neut % (Auto) 87.8 H (38.0-78.0) % Lymph % (Auto) 7.0 L (15.5-49.0) % [place] % (Auto) 4.3 (1.0-12.0) % Eos % (Auto) 0.4 (0.0-7.0) % Baso % (Auto) 0.5 (0.0-2.0) % Lymph # (Auto) 0.94 L (1.50-4.80) K/mcL [place] # (Auto) 0.58 (0.10-0.90) K/mcL Eos # (Auto) 0.05 (0.00-0.70) K/mcL Baso # (Auto) 0.07 (0.00-0.30) K/mcL Absolute Neutrophils 11.74 H (1.80-8.00) K/mcL ABG Methemoglobin (0.4-1.5) % VBG pH (7.32-7.42) U VBG pCO2 (41.0-51.0) mmHg VBG pO2 (25.0-40.0) mmHg VBG HCO3 (24.0-28.0) mmol/L VBG Total CO2 (25.0-29.0) mmol/L VBG O2 Saturation (40.0-70.0) % VBG Base Excess (-2-2) VBG Lactic Acid (0.5-2.0) mmol/L Carboxyhemoglobin (0.0-1.5) % THgb Total Hemoglobin (12.0-15.0) gm/Dl Sodium 130 L (133-145) mmol/L Potassium 3.6 (3.3-5.1) mmol/L Chloride 90 L (96-108) mmol/L Carbon Dioxide 19 L (22-30) mmol/L Anion Gap 21.0 H (8.0-16.0) BUN 27 H (8-23) mg/dL Creatinine 0.9 (0.6-1.1) mg/dL GFR Calculation 67 Glucose 130 H (70-105) mg/dL Calcium 9.2 (8.6-10.4) mg/dL Magnesium 2.0 (1.6-2.5) mg/dL Total Bilirubin 1.0 (0.1-1.0) mg/dL AST 33 H (<32) U/L ALT 29 (<40) U/L Alkaline Phosphatase 99 (39-117) U/L Total Creatine Kinase 109 (24-170) U/L Total Protein 7.8 (5.9-8.4) gm/dL Albumin 3.4 (3.2-5.2) gm/dL Globulin 4.4 H (2.2-3.7) gm/dL Albumin/Globulin Ratio 0.8 L (1.0-2.3) Urine Color TNP Urine Appearance TNP Urine pH TNP Ur Specific [place] TNP Urine Protein TNP Urine Glucose (UA) TNP Urine Ketones TNP Urine Occult Blood TNP Urine Nitrate TNP Urine Bilirubin TNP Prot Sulfosalicylic Acd TNP Urine Urobilinogen TNP Ur Leukocyte Esterase TNP Urine RBC TNP Urine WBC TNP Ur Squamous Epith Cells TNP Ur Transition Epith Cell TNP Ur Renal Epithelial Cell TNP Calcium Carbonate Cryst TNP Calcium Phosphate Cryst TNP Calcium Oxalate Crystal TNP Leucine Crystals TNP Cystine Crystals TNP Uric Acid Crystals TNP Triple Phos Crystals TNP Tyrosine Crystals TNP Other Crystals TNP Amorphous Crystals TNP Urine Bacteria TNP Cellular Casts TNP Epithelial Casts TNP Fatty Casts TNP Hyaline Casts TNP Granular Casts TNP Waxy Casts TNP Broad Casts TNP RBC Casts TNP WBC Casts TNP Other Casts TNP Urine Mucus TNP Urine Trichomonas TNP Ur Yeast w Hyphae TNP Urine Yeast (Budding) TNP Urine Sperm TNP Ur Oval Fat Bodies TNP Ur Free Fat Droplets TNP Ur Culture Indicated? TNP 05/26/21 05/26/21 Range/Units 20:12 20:12 WBC (4.5-11.0) K/mcL RBC (3.59-5.38) M/mcL Hgb (11.2-15.7) g/dL Hct (34.1-44.9) % MCV (80.0-100.0) fL MCH (26.0-34.0) pg MCHC (31.0-36.0) g/dL RDW (11.5-14.5) % Plt Count (140-440) K/mcL MPV (7.4-10.4) fL Neut % (Auto) (38.0-78.0) % Lymph % (Auto) (15.5-49.0) % [place] % (Auto) (1.0-12.0) % Eos % (Auto) (0.0-7.0) % Baso % (Auto) (0.0-2.0) % Lymph # (Auto) (1.50-4.80) K/mcL [place] # (Auto) (0.10-0.90) K/mcL Eos # (Auto) (0.00-0.70) K/mcL Baso # (Auto) (0.00-0.30) K/mcL Absolute Neutrophils (1.80-8.00) K/mcL ABG Methemoglobin 0.3 L (0.4-1.5) % VBG pH 7.36 (7.32-7.42) U VBG pCO2 42.0 (41.0-51.0) mmHg VBG pO2 25.5 (25.0-40.0) mmHg VBG HCO3 22.9 L (24.0-28.0) mmol/L VBG Total CO2 24.2 L (25.0-29.0) mmol/L VBG O2 Saturation 37.5 L (40.0-70.0) % VBG Base Excess -3 L (-2-2) VBG Lactic Acid 4.1 H* (0.5-2.0) mmol/L Carboxyhemoglobin 4.1 H (0.0-1.5) % THgb Total Hemoglobin 15.2 H (12.0-15.0) gm/Dl Sodium (133-145) mmol/L Potassium (3.3-5.1) mmol/L Chloride (96-108) mmol/L Carbon Dioxide (22-30) mmol/L Anion Gap (8.0-16.0) BUN (8-23) mg/dL Creatinine (0.6-1.1) mg/dL GFR Calculation Glucose (70-105) mg/dL Calcium (8.6-10.4) mg/dL Magnesium (1.6-2.5) mg/dL Total Bilirubin (0.1-1.0) mg/dL AST (<32) U/L ALT (<40) U/L Alkaline Phosphatase (39-117) U/L Total Creatine Kinase (24-170) U/L Total Protein (5.9-8.4) gm/dL Albumin (3.2-5.2) gm/dL Globulin (2.2-3.7) gm/dL Albumin/Globulin Ratio (1.0-2.3) Urine Color Urine Appearance Urine pH Ur Specific [place] Urine Protein Urine Glucose (UA) Urine Ketones Urine Occult Blood Urine Nitrate Urine Bilirubin Prot Sulfosalicylic Acd Urine Urobilinogen Ur Leukocyte Esterase Urine RBC Urine WBC Ur Squamous Epith Cells Ur Transition Epith Cell Ur Renal Epithelial Cell Calcium Carbonate Cryst Calcium Phosphate Cryst Calcium Oxalate Crystal Leucine Crystals Cystine Crystals Uric Acid Crystals Triple Phos Crystals Tyrosine Crystals Other Crystals Amorphous Crystals Urine Bacteria Cellular Casts Epithelial Casts Fatty Casts Hyaline Casts Granular Casts Waxy Casts Broad Casts RBC Casts WBC Casts Other Casts Urine Mucus Urine Trichomonas Ur Yeast w Hyphae Urine Yeast (Budding) Urine Sperm Ur Oval Fat Bodies Ur Free Fat Droplets Ur Culture Indicated? ED POC Tests ED POC Tests: LUPE - SARS Antigen Negative Discharge Plan Patient/Caregiver Discharge Instructions Pt seen by RN EMERGENCY/PA only: No Clinical Impression: Decubitus ulcer, Cellulitis of sacral region, Hyponatremia, Leukocytosis Patient Disposition: Still a Patient Condition: Fair Follow up with: Sen Paez PA-C [Primary Care Provider] - Prescriptions: No Action ciprofloxacin HCl [Cipro] 500 mg tablet 500 mg PO BID Qty: 14 RF: 1 estradiol [Estrace] 0.01 % (0.1 mg/gram) cream 1 g vaginal .2 XWEEK Qty: 42.5 RF: 0 methenamine hippurate 1 gram tablet 1 g PO BID Qty: 60 RF: 11 ascorbate calcium (vitamin C) 500 mg tablet 500 mg PO BID Qty: 180 RF: 11 gabapentin 300 mg capsule See Rx Instructions PO BID Qty: 450 RF: 3 coenzyme Q10 10 mg capsule 30 mg PO QDAY RF: 0 aspirin 81 mg tablet,delayed release (DR/EC) 81 mg PO QHS RF: 0 (DME) flaxseed 1,000 mg capsule 1,000 mg .ROUTE .MEDSUPPLY RF: 0 baclofen 10 mg tablet 10 mg PO QHS 30 Days Qty: 30 RF: 0
--- NOTE | 2021-05-27 05:54 | XRay Report ---
INDICATION: ams TECHNIQUE: AP supine chest x-ray COMPARISON: None FINDINGS: Lungs:Lungs are negative. No focal pulmonary parenchymal infiltrate or mass Heart, vascular:No significant cardiomegaly. Pulmonary vascularity is normal. No pulmonary edema or pulmonary congestion Mediastinum, giles:No mediastinal widening. No hilar mass Pleura:No pleural fluid. No pleural-based mass or calcification Skeletal:Negative. IMPRESSION: Negative AP chest x-ray Interpreted and Authenticated by: Haroon Sandoval 05/27/21
--- NOTE | 2021-05-27 12:53 | EKG ---
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
--- NOTE | 2021-05-27 12:59 | Internal Med History&Physical ---
HPI History of Present Illness Patient information: Note initiated : 05/27/21 at 12:57 pm Service Date, if different from initiated Date: [] Patient: Bridgette Cuevas a 66 y/o F admitted on for ulcer to coccyx, increased weakness. Chief Complaint: [sacral decubitus ulcer] History of present illness: Ms. Cuevas is a 66 year old F history of multiple sclerosis with associated bilateral lower extremity paralysis, chronically bedbound, presenting with sacral decubitus ulcer. Patient only had up to stage I sacral decubitus ulcer as per at the bedside until about 10 days ago when he noticed starting of skin breakdown. Patient denies any pain in her sacrum. Patient denies any fever or chills or swellings. Patient denies any change in her appetite. She was being brought her to the ER yesterday night for further evaluations. Vital signs at ED presentations were within normal limits. Labs significant for leukocytosis with WBC 13.4. Venous lactic acid 4.1. Serum sodium 130. Covid screen negative. Constitutional Constitutional: Absent chills, excessive sweating, fatigue, fever(s) and weakness EENT Eyes: Absent blurry vision, change in vision, loss of vision and other visual disturbances Ears: Absent decreased hearing and tinnitus Nose, mouth and throat: Absent abnormal hearing, dry mouth, headache(s), nasal congestion and sore throat Cardiovascular Cardiovascular: Absent chest pain, chest pain at rest, edema, irregular heart rhythm and palpatations Respiratory Respiratory: Absent cough, dyspnea and wheezing Gastrointestinal Gastrointestinal: Absent abdominal pain, constipation, diarrhea, nausea and vomiting Musculoskeletal Musculoskeletal: Absent back pain, deformity, limited range of motion, muscle cramps, muscle weakness and numbness Integumentary Integumentary: Present wounds; Absent lesions and rash Neurological Neurological: Absent focal weakness, headache(s) and numbness Psychiatric Psychiatric: Absent anxiety, depression and hallucinations [facility] PFS All Active Problems (Updated 05/27/21 @ 13:03 by Myles Lal MD) Decubitus ulcer of sacral region, stage 4 (Acute) Decubitus ulcer (Acute) Cellulitis of sacral region (Acute) Hyponatremia (Acute) Leukocytosis (Acute) Medicare annual wellness visit, initial (Acute) TIA (transient ischemic attack) (Acute) Trigeminal neuralgia (Chronic) History of tubal ligation (Chronic) S/P CHELSEY-BSO (Chronic) History of cholecystectomy (Chronic) Urinary tract infection (Chronic) Urinary incontinence (Chronic) Spasm of muscle (Chronic) Personal history of urinary tract infection (Chronic) Pain in limb (Chronic) Obesity (Chronic) Neurogenic bladder (Chronic) Multiple sclerosis (Chronic) Hyperlipidemia (Chronic) Hip fracture (Chronic) Fatigue (Chronic) Hypertonicity of bladder (Chronic) Medical History Fatigue Hip fracture 1996 Hyperlipidemia Hypertonicity of bladder Medicare annual wellness visit, initial Multiple sclerosis Neurogenic bladder 08/09/14 Obesity 09/27/13 Pain in limb Personal history of urinary tract infection Spasm of muscle Trigeminal neuralgia 05/09/2015 - Dr. Gualberto Peña Urinary incontinence Urinary tract infection Surgical History History of cholecystectomy 2004 History of tubal ligation 1993 S/P CHELSEY-BSO 1995 Family History Father Rheumatoid arthritis Essential hypertension Grandmother Diabetes mellitus Essential hypertension Malignant neoplasm of ovary Mother Essential hypertension Migraine Social History (Updated 01/25/20 @ 14:19 by Sen Paez PA-C) marital status: life partner occupational status: disabled alcohol intake frequency: holiday/special occasion only substance use type: does not use MEDS/ALLERGIES Home Medications and Allergies Home Medications Medication Instructions Recorded Confirmed Type aspirin 81 mg tablet,delayed 81 mg PO QHS tab 03/27/15 05/27/21 History release flaxseed 1,000 mg capsule 03/27/15 05/27/21 History baclofen 10 mg tablet 10 mg PO QHS 30 Days #30 tab 03/30/17 05/27/21 History gabapentin 300 mg capsule See Rx Instructions PO BID #450 cap 01/03/19 05/27/21 Rx ascorbate calcium (vitamin C) 500 500 mg PO BID #180 tab 02/13/21 05/27/21 Rx mg tablet methenamine hippurate 1 gram tablet 1 g PO BID #60 tab 02/13/21 05/27/21 Rx oxcarbazepine 150 mg PO BID 05/27/21 05/27/21 History Allergies Allergy/AdvReac Type Severity Reaction Status Date / Time Sulfa (Sulfonamide AdvReac Unknown Unknown Verified 05/26/21 18:22 Antibiotics) tape Allergy Unknown Unknown Uncoded 09/12/19 10:32 EXAM Constitutional Vitals: Temp Pulse Resp BP Pulse Ox 36.4 C 95 H 17 102/83 93 05/26/21 18:20 05/27/21 12:54 05/26/21 22:02 05/27/21 12:01 05/27/21 12:54 General appearance: cooperative and no acute distress Head Head exam: Present atraumatic and normocephalic Eye Eye exam: Present EOMI and PERRL ENT ENT exam: Present mucous membranes moist, normal exam and normal external ear exam Neck Neck exam: Present normal inspection; Absent lymphadenopathy, tenderness and thyromegaly Respiratory Respiratory exam: Absent accessory muscle use, respiratory distress and wheezes Cardiovascular Cardiovascular exam: Present normal rate and rhythm; Absent JVD GI/Abdominal GI/Abdominal exam: Present normal bowel sounds and soft; Absent organomegaly and tenderness Additional comments: Barba catheter in place Extremities Exam Extremities exam: Present full ROM, normal capillary refill and normal inspection; Absent tenderness Additional comments: Bilateral lower extremities paralysis Neurological Exam Neurological exam: Present alert, CN II-XII intact and oriented X3; Absent motor sensory deficit Psychiatric Psychiatric exam: Present normal affect and normal mood; Absent anxious and depressed Skin Skin exam: Present dry and erythema; Absent intact Additional comments: 3 x 3 inches stage IV sacral ulcer 1 x 1 inch stage II bilateral gluteal ulcer Erythema of bilateral labia majora DATA Data Completed and Pending Labs: Labs from last 24 hours 05/26/21 05/26/21 05/26/21 20:12 20:12 20:12 WBC RBC Hgb Hct MCV MCH MCHC RDW Plt Count MPV Neut % (Auto) Lymph % (Auto) [place] % (Auto) Eos % (Auto) Baso % (Auto) Lymph # (Auto) [place] # (Auto) Eos # (Auto) Baso # (Auto) Absolute Neutrophils ABG Methemoglobin 0.3 L VBG pH 7.36 VBG pCO2 42.0 VBG pO2 25.5 VBG HCO3 22.9 L VBG Total CO2 24.2 L VBG O2 Saturation 37.5 L VBG Base Excess -3 L VBG Lactic Acid 4.1 H* Carboxyhemoglobin 4.1 H Total Hemoglobin 15.2 H Sodium 130 L Potassium 3.6 Chloride 90 L Carbon Dioxide 19 L Anion Gap 21.0 H BUN 27 H Creatinine 0.9 GFR Calculation 67 Glucose 130 H Calcium 9.2 Magnesium 2.0 Total Bilirubin 1.0 AST 33 H ALT 29 Alkaline Phosphatase 99 Total Creatine Kinase 109 Total Protein 7.8 Albumin 3.4 Globulin 4.4 H Albumin/Globulin Ratio 0.8 L Urine Color Urine Appearance Urine pH Ur Specific [place] Urine Protein Urine Glucose (UA) Urine Ketones Urine Occult Blood Urine Nitrate Urine Bilirubin Prot Sulfosalicylic Acd Urine Urobilinogen Ur Leukocyte Esterase Urine RBC Urine WBC Ur Squamous Epith Cells Ur Transition Epith Cell Ur Renal Epithelial Cell Calcium Carbonate Cryst Calcium Phosphate Cryst Calcium Oxalate Crystal Leucine Crystals Cystine Crystals Uric Acid Crystals Triple Phos Crystals Tyrosine Crystals Other Crystals Amorphous Crystals Urine Bacteria Cellular Casts Epithelial Casts Fatty Casts Hyaline Casts Granular Casts Waxy Casts Broad Casts RBC Casts WBC Casts Other Casts Urine Mucus Urine Trichomonas Ur Yeast w Hyphae Urine Yeast (Budding) Urine Sperm Ur Oval Fat Bodies Ur Free Fat Droplets Ur Culture Indicated? 05/26/21 05/26/21 20:12 20:06 WBC 13.4 H RBC 5.09 Hgb 15.0 Hct 47.9 H MCV 94.1 MCH 29.5 MCHC 31.3 RDW 13.2 Plt Count 335 MPV 10.8 H Neut % (Auto) 87.8 H Lymph % (Auto) 7.0 L [place] % (Auto) 4.3 Eos % (Auto) 0.4 Baso % (Auto) 0.5 Lymph # (Auto) 0.94 L [place] # (Auto) 0.58 Eos # (Auto) 0.05 Baso # (Auto) 0.07 Absolute Neutrophils 11.74 H ABG Methemoglobin VBG pH VBG pCO2 VBG pO2 VBG HCO3 VBG Total CO2 VBG O2 Saturation VBG Base Excess VBG Lactic Acid Carboxyhemoglobin Total Hemoglobin Sodium Potassium Chloride Carbon Dioxide Anion Gap BUN Creatinine GFR Calculation Glucose Calcium Magnesium Total Bilirubin AST ALT Alkaline Phosphatase Total Creatine Kinase Total Protein Albumin Globulin Albumin/Globulin Ratio Urine Color TNP Urine Appearance TNP Urine pH TNP Ur Specific [place] TNP Urine Protein TNP Urine Glucose (UA) TNP Urine Ketones TNP Urine Occult Blood TNP Urine Nitrate TNP Urine Bilirubin TNP Prot Sulfosalicylic Acd TNP Urine Urobilinogen TNP Ur Leukocyte Esterase TNP Urine RBC TNP Urine WBC TNP Ur Squamous Epith Cells TNP Ur Transition Epith Cell TNP Ur Renal Epithelial Cell TNP Calcium Carbonate Cryst TNP Calcium Phosphate Cryst TNP Calcium Oxalate Crystal TNP Leucine Crystals TNP Cystine Crystals TNP Uric Acid Crystals TNP Triple Phos Crystals TNP Tyrosine Crystals TNP Other Crystals TNP Amorphous Crystals TNP Urine Bacteria TNP Cellular Casts TNP Epithelial Casts TNP Fatty Casts TNP Hyaline Casts TNP Granular Casts TNP Waxy Casts TNP Broad Casts TNP RBC Casts TNP WBC Casts TNP Other Casts TNP Urine Mucus TNP Urine Trichomonas TNP Ur Yeast w Hyphae TNP Urine Yeast (Budding) TNP Urine Sperm TNP Ur Oval Fat Bodies TNP Ur Free Fat Droplets TNP Ur Culture Indicated? TNP A/P Assessment and plan (1) Decubitus ulcer of sacral region, stage 4: Status: Acute (2) Multiple sclerosis: Status: Chronic (3) Hyponatremia: Status: Acute Narrative A/P Narrative: Assessment and plan: 1. Stage IV sacral decubitus ulcer: Admit to inpatient MedSurg Consult wound care doctor Dr. Bryant Blood culture Wound culture Serial lactic acid CBC with auto differential in the morning to trend WBC Regular diet Zosyn Gabapentin Baclofen Oxycodone as needed moderate pain Morphine IV as needed severe pain #2 history of multiple sclerosis: Continue oxcarbazepine #3 mild hyponatremia: Serum sodium level 130 Saline lock CMP to monitor trend serum sodium level GI prophylaxis: Not currently indicated DVT prophylaxis: Heparin CODE STATUS: Full code Prognosis: Stable Disposition: Inpatient MedSurg Time Spent With Patient Time: Total time spent is greater than 50% in coordination of care (as documented) at patient's floor/unit and/or counseling patient: Total time spent with greater than 50% in coordination of care (as documented) at patient's floor/unit and/or counseling patient:: Greater than 35 minutes
--- NOTE | 2021-05-27 13:57 | Cat Scan Report ---
INDICATION: sacral ulcer COMPARISON: Previous CT scan dated 03/05/2016 TECHNIQUE: Axial images were obtained through the abdomen and pelvis. Sagittally and coronally reformatted images. 80 mL Isovue 370 injected intravenously. Oral contrast material was not administered FINDINGS: Lung bases:Negative. No pulmonary parenchymal nodule. No pleural fluid or pericardial fluid Liver:Multiple low density lesions within the liver consistent with hepatic cysts. Dominant cyst is in the left lobe of the liver. This measures approximately 3.5 cm maximally. This was present on previous examination. Multiple smaller cysts are present but not well visualized on previous noncontrast enhanced examination. No evidence for solid hepatic mass. Liver contour is smooth. Gallbladder, bilary:Previous cholecystectomy. No significant intrahepatic bile duct dilatation. Common bile duct measures approximately 9 mm maximally. No detectable choledocholithiasis. Spleen:No splenomegaly. Normal enhancement of splenic and portal veins. Pancreas:No pancreatic mass. No peripancreatic abnormality Adrenal glands:Negative Kidneys, ureters, bladder:There are bilateral renal cortical and parapelvic cysts. No true hydronephrosis. No solid renal mass. There is no hydroureter. No ureteral calculus. There is a Barba catheter within the urinary bladder. Gastrointestinal:Mildly prominent fecal material within the rectum and sigmoid colon. No detectable colonic mass. There is no diverticulitis. Small bowel is negative. No mechanical small bowel obstruction. Stomach and duodenum are negative. Appendix: The appendix is negative Vascular:Mild calcification of the abdominal aorta. No abdominal aortic aneurysm. Celiac trunk and superior mesenteric artery are within normal limits. Inferior mesenteric artery is normal. Lymphatic:No retroperitoneal or mesenteric adenopathy Mesentery, peritoneum: No free intraperitoneal fluid. No mesenteric or retroperitoneal mass. No intra-abdominal abscess. Reproductive:Previous hysterectomy and bilateral oophorectomy. There is a 9 mm low density lesion with in the lateral left wall of the vagina. This is consistent with a vaginal wall cyst. Musculoskeletal:No lumbar compression fracture. 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 This is unchanged. There is degenerative disc narrowing at L5-S1. This is stable. Sacrum is negative. No insufficiency fracture. No lytic lesion. Pelvis is negative. No fracture. No lytic or sclerotic lesion. Hips are negative. No fracture. There is an ulcer overlying the coccyx. There is gas which extends deep and is contiguous to the dorsal aspects of the mid coccyx. There is amorphous soft tissue density. There may be mild cortical destruction involving the dorsal aspects of the, 6, to the right of midline. Osteomyelitis is possible. There is no well-defined focal fluid collection. No abdominal wall or inguinal hernia IMPRESSION: 1. Soft tissue ulcer overlying the mid coccyx. Soft tissue gas extends deep to the coccyx and there may be mild cortical destruction. Coccygeal osteomyelitis is possible 2. Multiple benign hepatic cysts. 3. Previous cholecystectomy. Mild extrahepatic bile duct dilatation without detectable choledocholithiasis 4. Multiple cortical and parapelvic renal cysts. No hydronephrosis. No solid mass. No obstructing calculi 5. Prominent fecal material within the sigmoid colon and rectum consistent with constipation 6. Degenerative disc disease at L5-S1 The exam was performed using radiation dose optimization techniques including, but not limited to, automated exposure control, adjustment of the mA and/or kV according to patient size and use of iterative reconstruction technique. Interpreted and Authenticated by: Haroon Sandoval 05/27/21
[2021-05-27] MEDS ORDERED: PIPERACILLIN SODIUM/TAZOBACTAM 3.375 GM in DEXTROSE 5% IN WATER 50 ML IV SCH (14:43)
[2021-05-27] MEDS ORDERED: oxyCODONE HCL 5 MG TABLET PO PRN (14:43)
[2021-05-27] MEDS ORDERED: morphine 4 MG/ML VIAL IV PRN (14:43)
[2021-05-27] MEDS ORDERED: ZOLPIDEM 5 MG TABLET PO PRN (14:43)
[2021-05-27] MEDS ORDERED: ACETAMINOPHEN 325 MG TABLET PO PRN (14:43)
[2021-05-27] MEDS ORDERED: ONDANSETRON 4 MG/2 ML VIAL IV PRN (14:43)
[2021-05-27] MEDS: 0.9 % SODIUM CHLORIDE 10 ML SYRINGE IV SCH ×2 (17:36→22:00)
[2021-05-27] MEDS: PIPERACILLIN SODIUM/TAZOBACTAM 3.375 GM in DEXTROSE 5% IN WATER 50 ML IV SCH ×2 (17:36→21:56)
--- NOTE | 2021-05-27 17:51 | General Surgery Consult Note ---
HPI Data of Consult Consult date: 05/27/21 Requesting physician: Myles Lal Primary Care Provider: Sen Paez PA-C Consult Narrative History of present illness: 66/F INITIAL encounter: I saw this patient along with Kim RN, Inpatient Wound Care and Ostomy nurse. Patient with h/o multiple chronic medical problems with a background of multiple sclerosis and superimposed multifactorial Sepsis syndrome, CSSSI, hyponatremia and extreme weakness. cc:: CC: Myles Lal MD Genitourinary Additional comments: Indwelling Barba Catheter Integumentary Integumentary: Present wounds (Stage 3-4 Sacral pressure ulcer and Stage 2-3 ulcers around buttocks and perineal region) Additional comments: Bed confined. H/O Multiple sclerosis Neurological Neurological: Present weakness and other (Partial paralysis of lower limbs, H/O Multiple sclerosis) PFSH PFSH All Active Problems Decubitus ulcer of sacral region, stage 4 (Acute) Decubitus ulcer (Acute) Cellulitis of sacral region (Acute) Hyponatremia (Acute) Leukocytosis (Acute) Medicare annual wellness visit, initial (Acute) TIA (transient ischemic attack) (Acute) Trigeminal neuralgia (Chronic) History of tubal ligation (Chronic) S/P CHELSEY-BSO (Chronic) History of cholecystectomy (Chronic) Urinary tract infection (Chronic) Urinary incontinence (Chronic) Spasm of muscle (Chronic) Personal history of urinary tract infection (Chronic) Pain in limb (Chronic) Obesity (Chronic) Neurogenic bladder (Chronic) Multiple sclerosis (Chronic) Hyperlipidemia (Chronic) Hip fracture (Chronic) Fatigue (Chronic) Hypertonicity of bladder (Chronic) Medical History Fatigue Hip fracture 1996 Hyperlipidemia Hypertonicity of bladder Medicare annual wellness visit, initial Multiple sclerosis Neurogenic bladder 08/09/14 Obesity 09/27/13 Pain in limb Personal history of urinary tract infection Spasm of muscle Trigeminal neuralgia 05/09/2015 - Dr. Gualberto Peña Urinary incontinence Urinary tract infection Surgical History History of cholecystectomy 2004 History of tubal ligation 1994 S/P CHELSEY-BSO 1995 Family History Father Rheumatoid arthritis Essential hypertension Grandmother Diabetes mellitus Essential hypertension Malignant neoplasm of ovary Mother Essential hypertension Migraine Social History marital status: life partner occupational status: disabled alcohol intake frequency: holiday/special occasion only substance use type: does not use MEDS/ALLERGIES Home Medications and Allergies Home Medications Medication Instructions Recorded Confirmed Type aspirin 81 mg tablet,delayed 81 mg PO QHS tab 03/27/15 05/27/21 History release flaxseed 1,000 mg capsule 03/27/15 05/27/21 History ascorbate calcium (vitamin C) 500 500 mg PO BID #180 tab 02/13/21 05/27/21 Rx mg tablet methenamine hippurate 1 gram tablet 1 g PO BID #60 tab 02/13/21 05/27/21 Rx oxcarbazepine 150 mg PO BID 05/27/21 05/27/21 History Allergies Allergy/AdvReac Type Severity Reaction Status Date / Time Sulfa (Sulfonamide Allergy Unknown Unknown Verified 05/27/21 15:06 Antibiotics) adhesive tape AdvReac Unknown Unknown Verified 05/27/21 15:06 Physical Examination Vital Signs Vital signs: Temp Pulse Resp BP Pulse Ox 97.5 F 95 H 17 102/83 93 05/27/21 14:24 05/27/21 14:24 05/27/21 14:24 05/27/21 14:24 05/27/21 14:24 General physical appearance General physical exam: well developed, no distress, chronically ill and other (Malnourished) Eyes Eye exam: PERRL and normal ocular movement ENT ENT exam: normal pinna, normal mucosa and no congestion Head Head exam IM: Present atraumatic and normocephalic Neck Neck exam: no masses, trachea midline and no venous distension Cardiovascular Cardiovascular exam IM: Present tachycardia Respiratory Respiratory exam: normal respiratory effort and clear to auscultation Abdomen Abdomen: Present soft, non tender, bowel sounds and wound (suprapubic Moisture associated dermatitis ) Genitourinary Genitourinary (Female): Present normal external genitalia and perineal/vulvar lesions (Stage 2-3 skin and subcutaneous ulcers of perineal region) Rectum Rectum: Present other (Rectal Examination Deferred at this time.) Integumentary Integumentary: Present other (Stage 3-4 Sacral / coccygeal pressure ulcer with exposed densely adherent soft tissue over bone. NO evidence of stool / urine contamination ) Neurologic Neurologic: Present other (Partial paralysis of lower limbs r/t multiple sclerosis.) Musculoskeletal Musculoskeletal: Present other (Bed confined,) Psychiatric Psychiatric: Present oriented to time, oriented to person, oriented to place and speech is normal Additional Findings Additional exam: Long panniculectomy scar from prior tummy tuck Results Labs Result diagrams: 05/26/21 20:12 05/26/21 20:12 Labs: Abnormal lab results 05/26/21 05/26/21 05/26/21 Range/Units 20:12 20:12 20:12 WBC 13.4 H (4.5-11.0) K/mcL Hct 47.9 H (34.1-44.9) % MPV 10.8 H (7.4-10.4) fL Neut % (Auto) 87.8 H (38.0-78.0) % Lymph % (Auto) 7.0 L (15.5-49.0) % Lymph # (Auto) 0.94 L (1.50-4.80) K/mcL Absolute Neutrophils 11.74 H (1.80-8.00) K/mcL ABG Methemoglobin (0.4-1.5) % VBG HCO3 (24.0-28.0) mmol/L VBG Total CO2 (25.0-29.0) mmol/L VBG O2 Saturation (40.0-70.0) % VBG Base Excess (-2-2) VBG Lactic Acid 4.1 H* (0.5-2.0) mmol/L Carboxyhemoglobin (0.0-1.5) % THgb Total Hemoglobin (12.0-15.0) gm/Dl Sodium 130 L (133-145) mmol/L Chloride 90 L (96-108) mmol/L Carbon Dioxide 19 L (22-30) mmol/L Anion Gap 21.0 H (8.0-16.0) BUN 27 H (8-23) mg/dL Glucose 130 H (70-105) mg/dL AST 33 H (<32) U/L Globulin 4.4 H (2.2-3.7) gm/dL Albumin/Globulin Ratio 0.8 L (1.0-2.3) 05/26/21 05/27/21 Range/Units 20:12 13:56 WBC (4.5-11.0) K/mcL Hct (34.1-44.9) % MPV (7.4-10.4) fL Neut % (Auto) (38.0-78.0) % Lymph % (Auto) (15.5-49.0) % Lymph # (Auto) (1.50-4.80) K/mcL Absolute Neutrophils (1.80-8.00) K/mcL ABG Methemoglobin 0.3 L (0.4-1.5) % VBG HCO3 22.9 L (24.0-28.0) mmol/L VBG Total CO2 24.2 L (25.0-29.0) mmol/L VBG O2 Saturation 37.5 L (40.0-70.0) % VBG Base Excess -3 L (-2-2) VBG Lactic Acid 2.3 H (0.5-2.0) mmol/L Carboxyhemoglobin 4.1 H (0.0-1.5) % THgb Total Hemoglobin 15.2 H (12.0-15.0) gm/Dl Sodium (133-145) mmol/L Chloride (96-108) mmol/L Carbon Dioxide (22-30) mmol/L Anion Gap (8.0-16.0) BUN (8-23) mg/dL Glucose (70-105) mg/dL AST (<32) U/L Globulin (2.2-3.7) gm/dL Albumin/Globulin Ratio (1.0-2.3) Diabetes panel 05/26/21 Range/Units 20:12 Sodium 130 L (133-145) mmol/L Potassium 3.6 (3.3-5.1) mmol/L Chloride 90 L (96-108) mmol/L Carbon Dioxide 19 L (22-30) mmol/L BUN 27 H (8-23) mg/dL Creatinine 0.9 (0.6-1.1) mg/dL Glucose 130 H (70-105) mg/dL Calcium 9.2 (8.6-10.4) mg/dL AST 33 H (<32) U/L ALT 29 (<40) U/L Alkaline Phosphatase 99 (39-117) U/L Total Protein 7.8 (5.9-8.4) gm/dL Albumin 3.4 (3.2-5.2) gm/dL Calcium panel 05/26/21 Range/Units 20:12 Calcium 9.2 (8.6-10.4) mg/dL Albumin 3.4 (3.2-5.2) gm/dL Pituitary panel 05/26/21 Range/Units 20:12 Sodium 130 L (133-145) mmol/L Potassium 3.6 (3.3-5.1) mmol/L Chloride 90 L (96-108) mmol/L Carbon Dioxide 19 L (22-30) mmol/L BUN 27 H (8-23) mg/dL Creatinine 0.9 (0.6-1.1) mg/dL Glucose 130 H (70-105) mg/dL Calcium 9.2 (8.6-10.4) mg/dL Adrenal panel 05/26/21 Range/Units 20:12 Sodium 130 L (133-145) mmol/L Potassium 3.6 (3.3-5.1) mmol/L Chloride 90 L (96-108) mmol/L Carbon Dioxide 19 L (22-30) mmol/L BUN 27 H (8-23) mg/dL Creatinine 0.9 (0.6-1.1) mg/dL Glucose 130 H (70-105) mg/dL Calcium 9.2 (8.6-10.4) mg/dL Total Bilirubin 1.0 (0.1-1.0) mg/dL AST 33 H (<32) U/L ALT 29 (<40) U/L Alkaline Phosphatase 99 (39-117) U/L Total Protein 7.8 (5.9-8.4) gm/dL Albumin 3.4 (3.2-5.2) gm/dL All other labs normal. A/P Narrative A/P Narrative: Assessment: Multiple Sclerosis. Electrolyte imbalance CSSSI Chronic wounds Sacral pressure ulcer Skin and subcutaneous ulcers Perineal region. Suspect malnutrition ( Will check labs ) Patient NEEDS General Surgery consult DIVERTING COLOSTOMY along with debridements. Plan: Wound care as ordered at this time. Check labs; CRP, Prealbumin, Procalcitonin and TSH Consult Dr. PEÑA, general surgeon for colostomy. Following patient during her hospitalization. Time Spent With Patient Time: Total time spent is greater than 50% in coordination of care (as documented) at patient's floor/unit and/or counseling patient: Total time spent with greater than 50% in coordination of care (as documented) at patient's floor/unit and/or counseling patient:: Greater than 35 minutes
[2021-05-27] MEDS ORDERED: METHENAMINE HIPPURATE 1 GM PO SCH (21:00)
[2021-05-27] MEDS ORDERED: GABAPENTIN 300 MG CAPSULE PO SCH ×2 (21:00)
[2021-05-27] MEDS ORDERED: BACLOFEN 10 MG TABLET PO SCH (21:00)
[2021-05-27] MEDS ORDERED: OXCARBAZEPINE 150 MG PO SCH (21:00)
[2021-05-27] MEDS: GABAPENTIN 300 MG CAPSULE PO SCH (21:57)
[2021-05-27] MEDS: HEPARIN 5,000 UNIT/ML VIAL SQ SCH (21:57)
[2021-05-27] MEDS: ASPIRIN 81 MG TAB.CHEW PO SCH (21:58)
[2021-05-27] MEDS: DOCUSATE SODIUM 100 MG CAPSULE PO SCH (21:58)
[2021-05-27] MEDS: SENNOSIDES 1 TABLET PO SCH (21:59)
[2021-05-27] MEDS: ASCORBIC ACID 500 MG TABLET PO SCH (21:59)
[2021-05-27] MEDS: BACLOFEN 10 MG TABLET PO SCH (21:59)
[2021-05-28] MEDS: PIPERACILLIN SODIUM/TAZOBACTAM 3.375 GM in DEXTROSE 5% IN WATER 50 ML IV SCH ×5 (01:36→23:49)
[2021-05-28] MEDS: 0.9 % SODIUM CHLORIDE 10 ML SYRINGE IV SCH ×3 (05:41→20:50)
[2021-05-28 07:49] LABS: Thyroid Stimulating Hormone 0.85 uIU/mL (0.27-5.01)
--- NOTE | 2021-05-28 09:22 | Internal Med Progress Note ---
SUBJECTIVE Subjective Patient information: Note initiated : 05/28/21 at 9:17 am Service Date, if different from initiated Date: [] Patient: Bridgette Cuevas a 66 y/o F admitted on 05/27/21 for ulcer to coccyx, increased weakness. Chief Complaint: [stage 4 sacral ulcer] Interval history: History of present illness: Ms. Cuevas is a 66 year old F h istory of multiple sclerosis with associated bilateral lower extremity paralysis, chronically bedbound, presenting with sacral decubitus ulcer. Patient only had up to stage I sacral decubitus ulcer as per at the bedside until about 10 days ago when he noticed starting of skin breakdown. Brandon young denies any pain in her sacrum. Patient denies any fever or chills or swellings. Patient denies any change in her appetite. She was being brought her to the ER yesterday night for further evaluations. Vital signs at ED presentations were within normal limits. Labs significant for leukocytosis with WBC 13.4. Venous lactic acid 4.1. Serum sodium 130. Covid screen negative. 05/28: Afebrile overnight. Blood culture from 05/26 growing P mirabilis. Denies any sacral pain. Denies fever or chills. c/o general body weakness. Good appetite. Constitutional Vitals: Vital Signs Temp Pulse Resp BP Pulse Ox 36.5 C 88 20 99/72 95 05/28/21 07:07 05/28/21 07:07 05/28/21 07:07 05/28/21 07:07 05/28/21 07:07 Period Temp Pulse Resp BP Sys/Jeter Pulse Ox Last 24 Hr 36.2 C-36.7 C 75-96 17-20 93-167/61-128 93-97 Intake and Output 05/27/21 05/28/21 05/28/21 21:59 05:59 13:59 Intake Total 290 100 50 Output Total 625 Balance 290 -525 50 Weight 87.18 kg Intake & Output: Intake & Output 05/27/21 05/28/21 05/28/21 21:59 05:59 13:59 Intake Total 290 100 50 Output Total 625 Balance 290 -525 50 Weight 87.18 kg Intake: IV 50 100 50 Zosyn 3.375 gm In Dextrose 5% 50 100 50 in Water 50 ml @ 100 mls/hr IV Q6H [facility] Rx#:[id number] Oral 240 Output: Urine Catheter Amount 625 Other: Meal Dinner Percent of Meal Consumed 100% Feeding Ability Total Assistance Urine Appearance Clear Uretheral (Barba) Clear Clear Urine Color Dark Yellow Uretheral (Barba) Dark Yellow Dark Yellow Urine Odor Normal General appearance: cooperative and no acute distress Head Head exam: Present atraumatic and normocephalic Eye Eye exam: Present EOMI and PERRL ENT ENT exam: Present mucous membranes moist, normal exam and normal external ear exam Neck Neck exam: Present normal inspection; Absent lymphadenopathy, tenderness and thyromegaly Respiratory Respiratory exam: Absent accessory muscle use, respiratory distress and wheezes Cardiovascular Cardiovascular exam: Present normal rate and rhythm; Absent JVD GI/Abdominal GI/Abdominal exam: Present normal bowel sounds and soft; Absent organomegaly and tenderness Additional comments: Barba catheter in place Extremities Exam Extremities exam: Present full ROM, normal capillary refill and normal inspection; Absent tenderness Neurological Exam Neurological exam: Present alert, CN II-XII intact, motor sensory deficit and oriented X3 Additional comments: bilateral lower extremities paraplegia Psychiatric Psychiatric exam: Present normal affect and normal mood; Absent anxious and depressed Skin Skin exam: Present dry; Absent intact Additional comments: Stage 4 sacral ulcer 3X3 inch OBJ DATA Labs CBC & Chem 7: 05/26/21 20:12 05/26/21 20:12 Labs: Abnormal Lab Results 05/28/21 05/28/21 05/27/21 05:34 05:34 13:56 WBC Hct MPV Neut % (Auto) Lymph % (Auto) Lymph # (Auto) Absolute Neutrophils ABG Methemoglobin VBG HCO3 VBG Total CO2 VBG O2 Saturation VBG Base Excess VBG Lactic Acid 2.3 H Carboxyhemoglobin Total Hemoglobin Sodium Chloride Carbon Dioxide Anion Gap BUN Glucose AST C-Reactive Protein 8.60 H Globulin Albumin/Globulin Ratio Prealbumin 10.0 L Procalcitonin 2.11 H 05/26/21 05/26/21 05/26/21 20:12 20:12 20:12 WBC Hct MPV Neut % (Auto) Lymph % (Auto) Lymph # (Auto) Absolute Neutrophils ABG Methemoglobin 0.3 L VBG HCO3 22.9 L VBG Total CO2 24.2 L VBG O2 Saturation 37.5 L VBG Base Excess -3 L VBG Lactic Acid 4.1 H* Carboxyhemoglobin 4.1 H Total Hemoglobin 15.2 H Sodium 130 L Chloride 90 L Carbon Dioxide 19 L Anion Gap 21.0 H BUN 27 H Glucose 130 H AST 33 H C-Reactive Protein Globulin 4.4 H Albumin/Globulin Ratio 0.8 L Prealbumin Procalcitonin 05/26/21 20:12 WBC 13.4 H Hct 47.9 H MPV 10.8 H Neut % (Auto) 87.8 H Lymph % (Auto) 7.0 L Lymph # (Auto) 0.94 L Absolute Neutrophils 11.74 H ABG Methemoglobin VBG HCO3 VBG Total CO2 VBG O2 Saturation VBG Base Excess VBG Lactic Acid Carboxyhemoglobin Total Hemoglobin Sodium Chloride Carbon Dioxide Anion Gap BUN Glucose AST C-Reactive Protein Globulin Albumin/Globulin Ratio Prealbumin Procalcitonin Meds: Medications Acetaminophen (Acetaminophen 325 Mg Tablet) 650 mg PO Q6HP PRN; Protocol PRN Reason: Per Pain Protocol/Fever > 101 Ascorbic Acid (Ascorbic Acid 500 Mg Tablet) 500 mg PO BID [facility] Last Admin: 05/27/21 21:59 Dose: 500 mg Documented by: Aspirin (Aspirin 81 Mg Tab.Chew) 81 mg PO QHS [facility] Last Admin: 05/27/21 21:58 Dose: 81 mg Documented by: Baclofen (Baclofen 10 Mg Tablet) 10 mg PO QHS [facility] Last Admin: 05/27/21 21:59 Dose: 10 mg Documented by: Docusate Sodium (Docusate Sodium 100 Mg Capsule) 100 mg PO BID [facility] Last Admin: 05/27/21 21:58 Dose: Not Given Documented by: Gabapentin (Gabapentin 300 Mg Capsule) 600 mg PO DAILY [facility] Gabapentin (Gabapentin 300 Mg Capsule) 900 mg PO [facility] Last Admin: 05/27/21 21:57 Dose: 900 mg Documented by: Heparin Sodium (Porcine) (Heparin 5,000 Unit/Ml Vial) 5,000 unit SQ Q12 [facility] Last Admin: 05/27/21 21:57 Dose: 5,000 unit Documented by: Sodium Chloride (Sodium Chloride 0.9%) 1,000 mls @ 0 mls/hr IV .Q0M [facility] Last Infusion: 05/26/21 21:31 Dose: Infused Documented by: Piperacillin Sod/Tazobactam (Sod 3.375 gm/ Dextrose) 50 mls @ 100 mls/hr IV Q6H [facility]; Protocol Last Infusion: 05/28/21 06:12 Dose: Infused Documented by: Morphine Sulfate (Morphine 4 Mg/Ml Vial) 4 mg IV Q4HP PRN; Protocol PRN Reason: Per Pain Protocol Ondansetron HCl (Ondansetron 4 Mg/2 Ml Vial) 4 mg IV Q6HP PRN PRN Reason: Nausea And Vomiting Oxycodone HCl (Oxycodone Hcl 5 Mg Tablet) 5 mg PO Q4HP PRN; Protocol PRN Reason: Per Pain Protocol Oxcarbazepine 150 Mg (Tablet) 1 dose PO BID [facility] Last Admin: 05/27/21 21:59 Dose: Not Given Documented by: Methenamine Hippurate 1 Gram Tablet 1 dose PO BID [facility] Last Admin: 05/27/21 21:59 Dose: Not Given Documented by: Senna (Sennosides 1 Tablet) 2 tab PO HS [facility] Last Admin: 05/27/21 21:59 Dose: Not Given Documented by: Sodium Chloride (0.9 % Sodium Chloride 10 Ml Syringe) 10 ml IV Q8 [facility] Last Admin: 05/28/21 05:41 Dose: 10 ml Documented by: Zolpidem Tartrate (Zolpidem 5 Mg Tablet) 5 mg PO HSP PRN PRN Reason: Insomnia ABG Interpretation ABG results: 05/26/21 20:12 ABG Methemoglobin 0.3 L VBG pH 7.36 VBG pCO2 42.0 VBG pO2 25.5 VBG HCO3 22.9 L VBG Total CO2 24.2 L VBG O2 Saturation 37.5 L VBG Base Excess -3 L A/P Assessment and plan (1) Decubitus ulcer of sacral region, stage 4: Status: Acute (2) Multiple sclerosis: Status: Chronic (3) Hyponatremia: Status: Acute Narrative A/P Narrative: Assessment and plan: 1. Stage IV sacral decubitus ulcer: Stays in inpatient MedSurg Consult wound care doctor Dr. Bryant Consult Dr. Peña for diverting colostomy Blood culture from 05/26 growing P mirabilis Repeat blood culture today Wound culture, no growth to date Serial lactic acid CBC with auto differential in the morning to trend WBC Regular diet Zosyn Gabapentin Baclofen Oxycodone as needed moderate pain Morphine IV as needed severe pain #2 history of multiple sclerosis: Continue oxcarbazepine #3 mild hyponatremia: Serum Na level today is pending Saline lock CMP to monitor trend serum sodium level 4. P mirabilis bacteremia: Blood culture from 05/26 growing P mirabilis Repeat blood culture today cbc w/ auto diff in the morning to trend WBC 2D echocardiogram Tylenol PRN fever Zosyn GI prophylaxis: Not currently indicated DVT prophylaxis: Heparin CODE STATUS: Full code Prognosis: Stable Disposition: Inpatient MedSurg Time Spent With Patient Time: Total time spent is greater than 50% in coordination of care (as documented) at patient's floor/unit and/or counseling patient: QUALITY Stroke Symptom Onset Unknown: No
[2021-05-28] MEDS: GABAPENTIN 300 MG CAPSULE PO SCH ×2 (10:39→20:48)
[2021-05-28] MEDS: ASCORBIC ACID 500 MG TABLET PO SCH ×2 (10:39→20:48)
[2021-05-28] MEDS: DOCUSATE SODIUM 100 MG CAPSULE PO SCH ×2 (10:39→20:49)
[2021-05-28 11:03] LABS: Basophils # (Auto) 0.06 K/mcL (0.00-0.30); Basophils % (Auto) 0.6 % (0.0-2.0); Eosinophils # (Auto) 0.26 K/mcL (0.00-0.70); Eosinophils % (Auto) 2.6 % (0.0-7.0); Hematocrit 36.9 % (34.1-44.9); Hemoglobin 11.9 g/dL (11.2-15.7); Lymphocytes # (Auto) 2.79 K/mcL (1.50-4.80); Lymphocytes % (Auto) 27.5 % (15.5-49.0); Mean Cell Volume 94.9 fL (80.0-100.0); Mean Corpuscular HGB Conc 32.2 g/dL (31.0-36.0); Monocytes # (Auto) 1.13 K/mcL (0.10-0.90); Monocytes % (Auto) 11.1 % (1.0-12.0); Neutrophils % (Auto) 58.2 % (38.0-78.0); Platelet Count 305 K/mcL (140-440); RBC 3.89 M/mcL (3.59-5.38); Red Cell Distribution Width 13.4 % (11.5-14.5); WBC 10.1 K/mcL (4.5-11.0)
[2021-05-28 12:03] LABS: ALT/SGPT 23 U/L (<40); AST/SGOT 28 U/L (<32); Albumin 2.7 gm/dL (3.2-5.2); Albumin/Globulin Ratio 0.7 (1.0-2.3); Alkaline Phosphatase 87 U/L (39-117); Bilirubin,Total 0.5 mg/dL (0.1-1.0); Blood Urea Nitrogen 17 mg/dL (8-23); Calcium 9.1 mg/dL (8.6-10.4); Carbon Dioxide 16 mmol/L (22-30); Chloride 102 mmol/L (96-108); Globulin 3.9 gm/dL (2.2-3.7); Glomerular Filtration Rate 91; Glucose 108 mg/dL (70-105)
[2021-05-28] MEDS: HEPARIN 5,000 UNIT/ML VIAL SQ SCH ×2 (12:28→20:49)
--- NOTE | 2021-05-28 14:11 | General Surgery Progress Note ---
SUBJECTIVE Subjective Patient information: Note initiated : 05/28/21 at 2:07 pm Service Date, if different from initiated Date: [] Patient: Bridgette Cuevas 66 y/o F admitted on 05/27/21 for ulcer to coccyx, increased weakness. Chief Complaint: [] Additional PMFSH (Level 3 Only): Patient examined and progress / POC reviewed with Moody De Leon RN, In Patient wound care nurse. Patient's partner s/o Prosper was present in room, when I saw patient. Constitutional Vitals: Vital Signs Temp Pulse Resp BP Pulse Ox 97.6 F 83 20 103/71 94 05/28/21 12:00 05/28/21 12:00 05/28/21 12:00 05/28/21 12:00 05/28/21 12:00 Period Temp Pulse Resp BP Sys/Jeter Pulse Ox Last 24 Hr 97.2 F-98.0 F 75-95 17-20 99-123/61-83 93-96 Intake and Output 05/28/21 05/28/21 05/28/21 05:59 13:59 21:59 Intake Total 100 50 Output Total 625 Balance -525 50 Intake & Output: Intake & Output 05/28/21 05/28/21 05/28/21 05:59 13:59 21:59 Intake Total 100 50 Output Total 625 Balance -525 50 Intake: IV 100 50 Zosyn 3.375 gm In Dextrose 5% 100 50 in Water 50 ml @ 100 mls/hr IV Q6H [facility] Rx#:[id number] Output: Urine Catheter Amount 625 Other: Urine Appearance Clear Uretheral (Barba) Clear Urine Color Dark Yellow Uretheral (Barba) Dark Yellow Urine Odor Normal Exam: AVSS. No changes in MELLISA. Local wound care is ongoing. Patient was seen by Dr. Peña for consideration for colostomy. Will await developments. LAB results; Consistent with acute infection / inflammation. PCM Malnutrition. (Prealbumin 10 ) ELEVATED CRP @ 8.6 / Procalcitonin2.11 TSH is Normal. A/P Narrative A/P Narrative: Assessment: Multiple Sclerosis. Sub acute / acute CSSI (Sepsis) Stage 4 Decubitus Sacral / Coccygeal Malnutrition ( Prealbumin 10 ) Paraparesis. Plan: Local wound care to continue. Will start on Oxandrin 5 mg /BID Will await input from Dr. Peña. Time Spent With Patient Time: Total time spent is greater than 50% in coordination of care (as documented) at patient's floor/unit and/or counseling patient: Total time spent with greater than 50% in coordination of care (as documented) at patient's floor/unit and/or counseling patient:: Greater than 35 minutes
--- NOTE | 2021-05-28 14:22 | Internal Med Progress Note ---
SUBJECTIVE Subjective Patient information: Note initiated : 05/28/21 at 2:15 pm Service Date, if different from initiated Date: [] Patient: Bridgette Cuevas a 66 y/o F admitted on 05/27/21 for ulcer to coccyx, increased weakness. Chief Complaint: [] Interval history: History of present illness: Ms. Cuevas is a 66 year old F history of multiple sclerosis with associated bilateral lower extremity paralysis, chronically bedbound, presenting with sacral decubitus ulcer. Patient only had up to stage I sacral decubitus ulcer as per at the bedside until about 10 days ago when he noticed starting of skin breakdown. Patient denies any pain in her sacrum. Patient denies any fever or chills or swellings. Patient denies any change in her appetite. She was being brought her to the ER yesterday night for further evaluations. Vital signs at ED presentations were within normal limits. Labs significant for leukocytosis with WBC 13.4. Venous lactic acid 4.1. Serum sodium 130. Covid screen negative. 05/28: Afebrile overnight. Blood culture from 05/26 growing P mirabilis. Denies any sacral pain. Denies fever or chills. c/o general body weakness. Good appetite. Constitutional Vitals: Vital Signs Temp Pulse Resp BP Pulse Ox 97.6 F 83 20 103/71 94 05/28/21 12:00 05/28/21 12:00 05/28/21 12:00 05/28/21 12:00 05/28/21 12:00 Period Temp Pulse Resp BP Sys/Jeter Pulse Ox Last 24 Hr 97.2 F-98.0 F 75-95 17-20 99-123/61-83 93-96 Intake and Output 05/28/21 05/28/21 05/28/21 05:59 13:59 21:59 Intake Total 100 410 Output Total 625 Balance -525 410 Intake & Output: Intake & Output 05/28/21 05/28/21 05/28/21 05:59 13:59 21:59 Intake Total 100 410 Output Total 625 Balance -525 410 Intake: IV 100 50 Zosyn 3.375 gm In Dextrose 5% 100 50 in Water 50 ml @ 100 mls/hr IV Q6H [facility] Rx#:[id number] Oral 360 Output: Urine Catheter Amount 625 Other: Meal Lunch Percent of Meal Consumed 100% Feeding Ability Assist with Tray Set Up Urine Appearance Clear Uretheral (Barba) Clear Urine Color Dark Yellow Uretheral (Barba) Dark Yellow Urine Odor Normal OBJ DATA Labs CBC & Chem 7: 05/28/21 05:34 05/28/21 05:34 Labs: Abnormal Lab Results 05/28/21 05/28/21 05/28/21 05:34 05:34 05:34 WBC Hct MPV Neut % (Auto) Lymph % (Auto) Lymph # (Auto) [place] # (Auto) Absolute Neutrophils ABG Methemoglobin VBG HCO3 VBG Total CO2 VBG O2 Saturation VBG Base Excess VBG Lactic Acid Carboxyhemoglobin Total Hemoglobin Sodium Potassium 3.2 L Chloride Carbon Dioxide 16 L Anion Gap 22.0 H BUN Glucose 108 H AST C-Reactive Protein 8.60 H Albumin 2.7 L Globulin 3.9 H Albumin/Globulin Ratio 0.7 L Prealbumin 10.0 L Procalcitonin 2.11 H 05/28/21 05/27/21 05/26/21 05:34 13:56 20:12 WBC Hct MPV 11.0 H Neut % (Auto) Lymph % (Auto) Lymph # (Auto) [place] # (Auto) 1.13 H Absolute Neutrophils ABG Methemoglobin 0.3 L VBG HCO3 22.9 L VBG Total CO2 24.2 L VBG O2 Saturation 37.5 L VBG Base Excess -3 L VBG Lactic Acid 2.3 H Carboxyhemoglobin 4.1 H Total Hemoglobin 15.2 H Sodium Potassium Chloride Carbon Dioxide Anion Gap BUN Glucose AST C-Reactive Protein Albumin Globulin Albumin/Globulin Ratio Prealbumin Procalcitonin 05/26/21 05/26/21 05/26/21 20:12 20:12 20:12 WBC 13.4 H Hct 47.9 H MPV 10.8 H Neut % (Auto) 87.8 H Lymph % (Auto) 7.0 L Lymph # (Auto) 0.94 L [place] # (Auto) Absolute Neutrophils 11.74 H ABG Methemoglobin VBG HCO3 VBG Total CO2 VBG O2 Saturation VBG Base Excess VBG Lactic Acid 4.1 H* Carboxyhemoglobin Total Hemoglobin Sodium 130 L Potassium Chloride 90 L Carbon Dioxide 19 L Anion Gap 21.0 H BUN 27 H Glucose 130 H AST 33 H C-Reactive Protein Albumin Globulin 4.4 H Albumin/Globulin Ratio 0.8 L Prealbumin Procalcitonin Meds: Medications Acetaminophen (Acetaminophen 325 Mg Tablet) 650 mg PO Q6HP PRN; Protocol PRN Reason: Per Pain Protocol/Fever > 101 Ascorbic Acid (Ascorbic Acid 500 Mg Tablet) 500 mg PO BID [facility] Last Admin: 05/28/21 10:39 Dose: 500 mg Documented by: Aspirin (Aspirin 81 Mg Tab.Chew) 81 mg PO QHS [facility] Last Admin: 05/27/21 21:58 Dose: 81 mg Documented by: Baclofen (Baclofen 10 Mg Tablet) 10 mg PO QHS [facility] Last Admin: 05/27/21 21:59 Dose: 10 mg Documented by: Docusate Sodium (Docusate Sodium 100 Mg Capsule) 100 mg PO BID [facility] Last Admin: 05/28/21 10:39 Dose: Not Given Documented by: Gabapentin (Gabapentin 300 Mg Capsule) 600 mg PO DAILY [facility] Last Admin: 05/28/21 10:39 Dose: 600 mg Documented by: Gabapentin (Gabapentin 300 Mg Capsule) 900 mg PO [facility] Last Admin: 05/27/21 21:57 Dose: 900 mg Documented by: Heparin Sodium (Porcine) (Heparin 5,000 Unit/Ml Vial) 5,000 unit SQ Q12 [facility] Last Admin: 05/28/21 12:28 Dose: Not Given Documented by: Sodium Chloride (Sodium Chloride 0.9%) 1,000 mls @ 0 mls/hr IV .Q0M [facility] Last Infusion: 05/26/21 21:31 Dose: Infused Documented by: Piperacillin Sod/Tazobactam (Sod 3.375 gm/ Dextrose) 50 mls @ 100 mls/hr IV Q6H [facility]; Protocol Last Infusion: 05/28/21 06:12 Dose: Infused Documented by: Morphine Sulfate (Morphine 4 Mg/Ml Vial) 4 mg IV Q4HP PRN; Protocol PRN Reason: Per Pain Protocol Ondansetron HCl (Ondansetron 4 Mg/2 Ml Vial) 4 mg IV Q6HP PRN PRN Reason: Nausea And Vomiting Oxycodone HCl (Oxycodone Hcl 5 Mg Tablet) 5 mg PO Q4HP PRN; Protocol PRN Reason: Per Pain Protocol Oxcarbazepine 150 Mg (Tablet) 1 dose PO BID [facility] Last Admin: 05/28/21 10:57 Dose: Not Given Documented by: Methenamine Hippurate 1 Gram Tablet 1 dose PO BID [facility] Last Admin: 05/28/21 10:41 Dose: Not Given Documented by: Senna (Sennosides 1 Tablet) 2 tab PO HS [facility] Last Admin: 05/27/21 21:59 Dose: Not Given Documented by: Sodium Chloride (0.9 % Sodium Chloride 10 Ml Syringe) 10 ml IV Q8 [facility] Last Admin: 05/28/21 05:41 Dose: 10 ml Documented by: Zolpidem Tartrate (Zolpidem 5 Mg Tablet) 5 mg PO HSP PRN PRN Reason: Insomnia ABG Interpretation ABG results: 05/26/21 20:12 ABG Methemoglobin 0.3 L VBG pH 7.36 VBG pCO2 42.0 VBG pO2 25.5 VBG HCO3 22.9 L VBG Total CO2 24.2 L VBG O2 Saturation 37.5 L VBG Base Excess -3 L A/P Narrative A/P Narrative: A: #Stage IV sacral decubitus ulcer w/Infection (GNB): -WC with GNB #Bacteremia(Proteus) #UTI(GNB): #h/o multiple sclerosis: #Hyponatremia, mild: #Chr Pain + h/o trigeminal Neuralgia: on Oxcarbazepine P: -Zosyn -Dr. Bryant following -Dr. Peña for diverting colostomy -cont home Gabapentin / Baclofen, Oxycodone as needed moderate pain - -pt/ot -ppx prophylaxis: Heparin Time Spent With Patient Time: Total time spent is greater than 50% in coordination of care (as d ocumented) at patient's floor/unit and/or counseling patient: QUALITY Stroke Symptom Onset Unknown: No
--- NOTE | 2021-05-28 15:10 | General Surgery Consult Note ---
HPI Data of Consult Consult date: 05/28/21 Requesting physician: Dax Bryant Primary Care Provider: Sen Paez PA-C Consult Narrative History of present illness: This is a pleasant 66-year-old female who presents with a long history of Patient with h/o multiple chronic medical problems with a background of multiple sclerosis and superimposed multifactorial Sepsis syndrome, CSSSI, hyponatremia and extreme weakness. She presented to the hospital with a stage III sacral decubitus ulcer. She was seen by wound care who feels that healing would be greatly improved with a diverting ostomy. I was asked to see the patient to discuss possibility of a diverting ostomy. cc:: CC: Myles Lal MD Review of Systems Review of systems: All systems are reviewed, negative other than above PFSH PFSH All Active Problems Bacteremia due to Gram-negative bacteria (Acute) Decubitus ulcer of sacral region, stage 4 (Acute) Decubitus ulcer (Acute) Cellulitis of sacral region (Acute) Hyponatremia (Acute) Leukocytosis (Acute) Medicare annual wellness visit, initial (Acute) TIA (transient ischemic attack) (Acute) Trigeminal neuralgia (Chronic) History of tubal ligation (Chronic) S/P CHELSEY-BSO (Chronic) History of cholecystectomy (Chronic) Urinary tract infection (Chronic) Urinary incontinence (Chronic) Spasm of muscle (Chronic) Personal history of urinary tract infection (Chronic) Pain in limb (Chronic) Obesity (Chronic) Neurogenic bladder (Chronic) Multiple sclerosis (Chronic) Hyperlipidemia (Chronic) Hip fracture (Chronic) Fatigue (Chronic) Hypertonicity of bladder (Chronic) Medical History Fatigue Hip fracture 1996 Hyperlipidemia Hypertonicity of bladder Medicare annual wellness visit, initial Multiple sclerosis Neurogenic bladder 08/09/14 Obesity 09/27/13 Pain in limb Personal history of urinary tract infection Spasm of muscle Trigeminal neuralgia 05/09/2015 - Dr. Gualberto Peña Urinary incontinence Urinary tract infection Surgical History History of cholecystectomy 2004 History of tubal ligation 1994 S/P CHELSEY-BSO 1995 Family History Father Rheumatoid arthritis Essential hypertension Grandmother Diabetes mellitus Essential hypertension Malignant neoplasm of ovary Mother Essential hypertension Migraine Social History marital status: life partner occupational status: disabled alcohol intake frequency: holiday/special occasion only substance use type: does not use MEDS/ALLERGIES Home Medications and Allergies Home Medications Medication Instructions Recorded Confirmed Type aspirin 81 mg tablet,delayed 81 mg PO QHS tab 03/27/15 05/27/21 History release flaxseed 1,000 mg capsule 03/27/15 05/27/21 History ascorbate calcium (vitamin C) 500 500 mg PO BID #180 tab 02/13/21 05/27/21 Rx mg tablet methenamine hippurate 1 gram tablet 1 g PO BID #60 tab 02/13/21 05/27/21 Rx oxcarbazepine 150 mg PO BID 05/27/21 05/27/21 History Allergies Allergy/AdvReac Type Severity Reaction Status Date / Time Sulfa (Sulfonamide Allergy Unknown Unknown Verified 05/27/21 15:06 Antibiotics) adhesive tape AdvReac Unknown Unknown Verified 05/27/21 15:06 Physical Examination Vital Signs Vital signs: Temp Pulse Resp BP Pulse Ox 97.6 F 83 20 103/71 94 05/28/21 12:00 05/28/21 12:00 05/28/21 12:00 05/28/21 12:00 05/28/21 12:00 General physical appearance General physical exam: well developed, well nourished and no distress Eyes Eye exam: PERRL and normal ocular movement ENT ENT exam: normal pinna, normal nares, normal mucosa, no hearing loss and no congestion Head Head exam IM: Present atraumatic and normocephalic Neck Neck exam: no masses, no bruits, trachea midline, no lymphadenopathy and no venous distension Cardiovascular Cardiovascular exam IM: Present normal rate and rhythm Respiratory Respiratory exam: normal expansion, normal respiratory effort, clear to percussion and clear to auscultation Abdomen Abdomen: Present soft, non tender and bowel sounds Hernia: Present none Genitourinary Genitourinary (Female): Present normal external genitalia Rectum Rectum: Present no bleeding and other (Stage III sacral decub) Integumentary Integumentary: Present no rash, no growths and no abnormal pigmentation Neurologic Neurologic: Present normal coordination and normal sensation Musculoskeletal Musculoskeletal: Present normal gait and normal posture Psychiatric Psychiatric: Present oriented to time, oriented to person, oriented to place, speech is normal and memory intact Results Labs Result diagrams: 05/28/21 05:34 05/28/21 05:34 Labs: Abnormal lab results 05/28/21 05/28/21 05/28/21 Range/Units 05:34 05:34 05:34 MPV 11.0 H (7.4-10.4) fL [place] # (Auto) 1.13 H (0.10-0.90) K/mcL Potassium 3.2 L (3.3-5.1) mmol/L Carbon Dioxide 16 L (22-30) mmol/L Anion Gap 22.0 H (8.0-16.0) Glucose 108 H (70-105) mg/dL C-Reactive Protein 8.60 H (0.03-0.80) mg/dL Albumin 2.7 L (3.2-5.2) gm/dL Globulin 3.9 H (2.2-3.7) gm/dL Albumin/Globulin Ratio 0.7 L (1.0-2.3) Prealbumin 10.0 L (20.0-40.0) mg/dL Procalcitonin (<0.10) ng/mL 05/28/21 Range/Units 05:34 MPV (7.4-10.4) fL [place] # (Auto) (0.10-0.90) K/mcL Potassium (3.3-5.1) mmol/L Carbon Dioxide (22-30) mmol/L Anion Gap (8.0-16.0) Glucose (70-105) mg/dL C-Reactive Protein (0.03-0.80) mg/dL Albumin (3.2-5.2) gm/dL Globulin (2.2-3.7) gm/dL Albumin/Globulin Ratio (1.0-2.3) Prealbumin (20.0-40.0) mg/dL Procalcitonin 2.11 H (<0.10) ng/mL Diabetes panel 05/28/21 Range/Units 05:34 Sodium 140 (133-145) mmol/L Potassium 3.2 L (3.3-5.1) mmol/L Chloride 102 (96-108) mmol/L Carbon Dioxide 16 L (22-30) mmol/L BUN 17 (8-23) mg/dL Creatinine 0.7 (0.6-1.1) mg/dL Glucose 108 H (70-105) mg/dL Calcium 9.1 (8.6-10.4) mg/dL AST 28 (<32) U/L ALT 23 (<40) U/L Alkaline Phosphatase 87 (39-117) U/L Total Protein 6.6 (5.9-8.4) gm/dL Albumin 2.7 L (3.2-5.2) gm/dL Thyroid panel 05/28/21 Range/Units 05:34 TSH 0.85 (0.27-5.01) uIU/mL Calcium panel 05/28/21 Range/Units 05:34 Calcium 9.1 (8.6-10.4) mg/dL Albumin 2.7 L (3.2-5.2) gm/dL Pituitary panel 05/28/21 05/28/21 Range/Units 05:34 05:34 Sodium 140 (133-145) mmol/L Potassium 3.2 L (3.3-5.1) mmol/L Chloride 102 (96-108) mmol/L Carbon Dioxide 16 L (22-30) mmol/L BUN 17 (8-23) mg/dL Creatinine 0.7 (0.6-1.1) mg/dL Glucose 108 H (70-105) mg/dL Calcium 9.1 (8.6-10.4) mg/dL TSH 0.85 (0.27-5.01) uIU/mL Adrenal panel 05/28/21 Range/Units 05:34 Sodium 140 (133-145) mmol/L Potassium 3.2 L (3.3-5.1) mmol/L Chloride 102 (96-108) mmol/L Carbon Dioxide 16 L (22-30) mmol/L BUN 17 (8-23) mg/dL Creatinine 0.7 (0.6-1.1) mg/dL Glucose 108 H (70-105) mg/dL Calcium 9.1 (8.6-10.4) mg/dL Total Bilirubin 0.5 (0.1-1.0) mg/dL AST 28 (<32) U/L ALT 23 (<40) U/L Alkaline Phosphatase 87 (39-117) U/L Total Protein 6.6 (5.9-8.4) gm/dL Albumin 2.7 L (3.2-5.2) gm/dL All other labs normal. A/P Narrative A/P Narrative: This is a pleasant 66-year-old female with bilateral lower extremity paresis with a sacral decubitus ulcer. I was asked to see the patient for a diverting ostomy to assist with wound healing. Risk, benefits, alternatives to procedure discussed with her at length including details of procedure and what to expect afterwards. She verbalized understanding, all of her questions are answered. Plan: I will add her onto the OR schedule for tomorrow for a laparoscopic- assisted diverting ostomy. Thank you very much for this consultation, please call with any further questions Time Spent With Patient Time: Total time spent is greater than 50% in coordination of care (as documented) at patient's floor/unit and/or counseling patient:
[2021-05-28] MEDS: ASPIRIN 81 MG TAB.CHEW PO SCH (20:48)
[2021-05-28] MEDS: BACLOFEN 10 MG TABLET PO SCH (20:49)
[2021-05-28] MEDS: SENNOSIDES 1 TABLET PO SCH (20:50)
[2021-05-28] MEDS: OXANDROLONE 2.5 MG TABLET PO SCH (20:50)
[2021-05-29] MEDS: PIPERACILLIN SODIUM/TAZOBACTAM 3.375 GM in DEXTROSE 5% IN WATER 50 ML IV SCH ×4 (05:20→23:45)
[2021-05-29] MEDS: 0.9 % SODIUM CHLORIDE 10 ML SYRINGE IV SCH ×3 (05:21→22:11)
[2021-05-29] MEDS ORDERED: IPRATROPIUM/ALBUTEROL 3 ML AMPUL.NEB NEB PRN ×2 (08:00→14:38)
[2021-05-29] MEDS ORDERED: SCOPOLAMINE 1 PATCH PATCH TOPICAL PRN (08:00)
--- NOTE | 2021-05-29 08:12 | Internal Med Progress Note ---
SUBJECTIVE Subjective Patient information: Note initiated : 05/29/21 at 8:08 am Service Date, if different from initiated Date: [] Patient: Bridgette Cuevas a 66 y/o F admitted on 05/27/21 for ulcer to coccyx, increased weakness. Chief Complaint: [] Interval history: History of present illness: Ms. Cuevas is a 66 year old F history of multiple sclerosis with associated bilateral lower extremity paralysis, chronically bedbound, presenting with sacral decubitus ulcer. Patient only had up to stage I sacral decubitus ulcer as per at the bedside until about 10 days ago when he noticed starting of skin breakdown. Patient denies any pain in her sacrum. Patient denies any fever or chills or swellings. Patient denies any change in her appetite. She was being brought her to the ER yesterday night for further evaluations. Vital signs at ED presentations were within normal limits. Labs significant for leukocytosis with WBC 13.4. Venous lactic acid 4.1. Serum sodium 130. Covid screen negative. 05/28: Afebrile overnight. Blood culture from 05/26 growing P mirabilis. Denies any sacral pain. Denies fever or chills. c/o general body weakness. Good appetite. 05/29 Patient scheduled for diverting colostomy today. No new complaints. Awaiting final blood cultures urine cultures and wound cultures. Review of Systems: denies headache/fever/chills/nausea/vomiting/chest or abdominal pain/cough/dyspnea/diarrhea. Otherwise see above. Constitutional Vitals: Vital Signs Temp Pulse Resp BP Pulse Ox 97.6 F 81 18 94/67 92 05/29/21 03:36 05/29/21 03:36 05/29/21 03:36 05/29/21 03:36 05/29/21 03:36 Period Temp Pulse Resp BP Sys/Jeter Pulse Ox Last 24 Hr 97.6 F-99.3 F 81-107 18-20 93-153/59-78 92-96 Intake and Output 05/28/21 05/29/21 05/29/21 21:59 05:59 13:59 Intake Total 1140 425 50 Output Total 350 250 Balance 790 175 50 Weight 90.492 kg Intake & Output: Intake & Output 05/28/21 05/29/21 05/29/21 21:59 05:59 13:59 Intake Total 1140 425 50 Output Total 350 250 Balance 790 175 50 Weight 90.492 kg Intake: IV 100 50 50 Zosyn 3.375 gm In Dextrose 5% 100 50 50 in Water 50 ml @ 100 mls/hr IV Q6H [facility] Rx#:[id number] Oral 1040 375 Output: Urine Catheter Amount 350 250 Other: Meal Dinner Percent of Meal Consumed 100% Feeding Ability Independent Urine Appearance Clear Uretheral (Barba) Clear Urine Color Dark Yellow Uretheral (Barba) Dark Yellow Exam: General: Alert, Awake, No acute Distress, obese Eyes/N/T: EOMI, Head/Neck: neck supple, CV: RRR, No murmurs, Pulm: Clear b/l, no wheezing/rhonchi/rales Abd: soft, nontender, +BS x4 Ext: no clubbing/cyanosis/edema Neuro: Alert, LE paraplegia Skin: warm/dry OBJ DATA Labs CBC & Chem 7: 05/28/21 05:34 05/28/21 05:34 Labs: Abnormal Lab Results 05/29/21 05/28/21 05/28/21 05:13 05:34 05:34 WBC Hct MPV Neut % (Auto) Lymph % (Auto) Lymph # (Auto) [place] # (Auto) Absolute Neutrophils ABG Methemoglobin VBG HCO3 VBG Total CO2 VBG O2 Saturation VBG Base Excess VBG Lactic Acid Carboxyhemoglobin Total Hemoglobin Sodium Potassium Chloride Carbon Dioxide Anion Gap BUN Glucose AST C-Reactive Protein 8.60 H Albumin Globulin Albumin/Globulin Ratio Prealbumin 10.0 L Procalcitonin 1.16 H 2.11 H 05/28/21 05/28/21 05/27/21 05:34 05:34 13:56 WBC Hct MPV 11.0 H Neut % (Auto) Lymph % (Auto) Lymph # (Auto) [place] # (Auto) 1.13 H Absolute Neutrophils ABG Methemoglobin VBG HCO3 VBG Total CO2 VBG O2 Saturation VBG Base Excess VBG Lactic Acid 2.3 H Carboxyhemoglobin Total Hemoglobin Sodium Potassium 3.2 L Chloride Carbon Dioxide 16 L Anion Gap 22.0 H BUN Glucose 108 H AST C-Reactive Protein Albumin 2.7 L Globulin 3.9 H Albumin/Globulin Ratio 0.7 L Prealbumin Procalcitonin 09/05/26/21 05/26/21 20:12 20:12 20:12 WBC Hct MPV Neut % (Auto) Lymph % (Auto) Lymph # (Auto) [place] # (Auto) Absolute Neutrophils ABG Methemoglobin 0.3 L VBG HCO3 22.9 L VBG Total CO2 24.2 L VBG O2 Saturation 37.5 L VBG Base Excess -3 L VBG Lactic Acid 4.1 H* Carboxyhemoglobin 4.1 H Total Hemoglobin 15.2 H Sodium 130 L Potassium Chloride 90 L Carbon Dioxide 19 L Anion Gap 21.0 H BUN 27 H Glucose 130 H AST 33 H C-Reactive Protein Albumin Globulin 4.4 H Albumin/Globulin Ratio 0.8 L Prealbumin Procalcitonin 05/26/21 20:12 WBC 13.4 H Hct 47.9 H MPV 10.8 H Neut % (Auto) 87.8 H Lymph % (Auto) 7.0 L Lymph # (Auto) 0.94 L [place] # (Auto) Absolute Neutrophils 11.74 H ABG Methemoglobin VBG HCO3 VBG Total CO2 VBG O2 Saturation VBG Base Excess VBG Lactic Acid Carboxyhemoglobin Total Hemoglobin Sodium Potassium Chloride Carbon Dioxide Anion Gap BUN Glucose AST C-Reactive Protein Albumin Globulin Albumin/Globulin Ratio Prealbumin Procalcitonin Meds: Medications Acetaminophen (Acetaminophen 325 Mg Tablet) 650 mg PO Q6HP PRN; Protocol PRN Reason: Per Pain Protocol/Fever > 101 Albuterol/Ipratropium (Ipratropium/Albuterol 3 Ml Ampul.Neb) 3 ml NEB ONCE PRN PRN Reason: Shortness Of Breath Stop: 05/29/21 23:59 Ascorbic Acid (Ascorbic Acid 500 Mg Tablet) 500 mg PO BID [facility] Last Admin: 05/28/21 20:48 Dose: 500 mg Documented by: Aspirin (Aspirin 81 Mg Tab.Chew) 81 mg PO QHS [facility] Last Admin: 05/28/21 20:48 Dose: 81 mg Documented by: Baclofen (Baclofen 10 Mg Tablet) 10 mg PO QHS [facility] Last Admin: 05/28/21 20:49 Dose: 10 mg Documented by: Docusate Sodium (Docusate Sodium 100 Mg Capsule) 100 mg PO BID [facility] Last Admin: 05/28/21 20:49 Dose: Not Given Documented by: Gabapentin (Gabapentin 300 Mg Capsule) 600 mg PO DAILY [facility] Last Admin: 05/28/21 10:39 Dose: 600 mg Documented by: Gabapentin (Gabapentin 300 Mg Capsule) 900 mg PO HS [facility] Last Admin: 05/28/21 20:48 Dose: 900 mg Documented by: Heparin Sodium (Porcine) (Heparin 5,000 Unit/Ml Vial) 5,000 unit SQ Q12 [facility] Last Admin: 05/28/21 20:49 Dose: Not Given Documented by: Sodium Chloride (Sodium Chloride 0.9%) 1,000 mls @ 0 mls/hr IV .Q0M [facility] Last Infusion: 05/26/21 21:31 Dose: Infused Documented by: Piperacillin Sod/Tazobactam (Sod 3.375 gm/ Dextrose) 50 mls @ 100 mls/hr IV Q6H [facility]; Protocol Last Infusion: 05/29/21 06:49 Dose: Infused Documented by: Morphine Sulfate (Morphine 4 Mg/Ml Vial) 4 mg IV Q4HP PRN; Protocol PRN Reason: Per Pain Protocol Ondansetron HCl (Ondansetron 4 Mg/2 Ml Vial) 4 mg IV Q6HP PRN PRN Reason: Nausea And Vomiting Oxandrolone (Oxandrolone 2.5 Mg Tablet) 5 mg PO BID [facility] Last Admin: 05/28/21 20:50 Dose: Not Given Documented by: Oxycodone HCl (Oxycodone Hcl 5 Mg Tablet) 5 mg PO Q4HP PRN; Protocol PRN Reason: Per Pain Protocol Oxcarbazepine 150 Mg (Tablet) 1 dose PO BID [facility] Last Admin: 05/28/21 20:50 Dose: Not Given Documented by: Methenamine Hippurate 1 Gram Tablet 1 dose PO BID [facility] Last Admin: 05/28/21 20:50 Dose: Not Given Documented by: Scopolamine (Scopolamine 1 Patch Patch) 1 patch TOPICAL PREOP PRN PRN Reason: Nausea And Vomiting Stop: 05/29/21 23:59 Senna (Sennosides 1 Tablet) 2 tab PO [facility] Last Admin: 05/28/21 20:50 Dose: Not Given Documented by: Sodium Chloride (0.9 % Sodium Chloride 10 Ml Syringe) 10 ml IV Q8 [facility] Last Admin: 05/29/21 05:21 Dose: 10 ml Documented by: Zolpidem Tartrate (Zolpidem 5 Mg Tablet) 5 mg PO HSP PRN PRN Reason: Insomnia ABG Interpretation ABG results: 05/26/21 20:12 ABG Methemoglobin 0.3 L VBG pH 7.36 VBG pCO2 42.0 VBG pO2 25.5 VBG HCO3 22.9 L VBG Total CO2 24.2 L VBG O2 Saturation 37.5 L VBG Base Excess -3 L A/P Narrative A/P Narrative: A: #Stage IV sacral decubitus ulcer w/Infection (GNB): -WC with GNB -PCT/leukocytosis improved #Bacteremia(Proteus): repeat BC neg #UTI(GNB): #h/o multiple sclerosis w/paraplegia and bedbound: #Hyponatremia, mild: improved #Chr Pain + h/o trigeminal Neuralgia: on Oxcarbazepine P: -Zosyn -Dr. Bryant following -Dr. Peña for diverting colostomy -cont home Gabapentin / Baclofen, Oxycodone as needed moderate pain -pt/ot -CM for placement needs -ppx prophylaxis: Heparin Time Spent With Patient Time: Total time spent is greater than 50% in coordination of care (as documented) at patient's floor/unit and/or counseling patient: QUALITY Stroke Symptom Onset Unknown: No
[2021-05-29] MEDS ORDERED: 0.9 % SODIUM CHLORIDE 1,000 ML IV SCH (08:15)
[2021-05-29] MEDS: OXANDROLONE 2.5 MG TABLET PO SCH ×2 (09:57→21:00)
[2021-05-29] MEDS: GABAPENTIN 300 MG CAPSULE PO SCH ×2 (09:57→22:06)
[2021-05-29] MEDS: HEPARIN 5,000 UNIT/ML VIAL SQ SCH ×2 (09:57→22:08)
[2021-05-29] MEDS: ASCORBIC ACID 500 MG TABLET PO SCH ×2 (09:57→22:05)
[2021-05-29] MEDS: DOCUSATE SODIUM 100 MG CAPSULE PO SCH ×2 (09:57→22:06)
--- NOTE | 2021-05-29 11:50 | General Surgery Progress Note ---
SUBJECTIVE Subjective Patient information: Note initiated : 05/29/21 at 11:46 am Service Date, if different from initiated Date: [] Patient: Bridgette Cuevas 66 y/o F admitted on 05/27/21 for ulcer to coccyx, increased weakness. Chief Complaint: [] Additional PMFSH (Level 3 Only): Patient seen along with Moody Lopes RN and Prosper CG / friend. Patient awaits laparoscopic colostomy today by Dr. Peña. Constitutional Vitals: Vital Signs Temp Pulse Resp BP Pulse Ox 97.6 F 86 18 107/73 95 05/29/21 08:00 05/29/21 08:00 05/29/21 03:36 05/29/21 08:00 05/29/21 08:00 Period Temp Pulse Resp BP Sys/Jeter Pulse Ox Last 24 Hr 97.6 F-99.3 F 81-107 18-20 93-153/59-78 92-96 Intake and Output 05/28/21 05/29/21 05/29/21 21:59 05:59 13:59 Intake Total 1140 425 50 Output Total 350 250 Balance 790 175 50 Weight 199 lb 8 oz Intake & Output: Intake & Output 05/28/21 05/29/21 05/29/21 21:59 05:59 13:59 Intake Total 1140 425 50 Output Total 350 250 Balance 790 175 50 Weight 199 lb 8 oz Intake: IV 100 50 50 Zosyn 3.375 gm In Dextrose 5% 100 50 50 in Water 50 ml @ 100 mls/hr IV Q6H [facility] Rx#:[id number] Oral 1040 375 Output: Urine Catheter Amount 350 250 Other: Meal Dinner Percent of Meal Consumed 100% Feeding Ability Independent Urine Appearance Clear Uretheral (Barba) Clear Urine Color Dark Yellow Uretheral (Barba) Dark Yellow Exam: AVSS, No changes in examination. Local wound care is ongoing. A/P Narrative A/P Narrative: Assessment: NON HEALING stage 4 sacral decubitus. Malnutrition Multiple comorbid medical problems Stable and optimally managed. Spoke with patient and CG at length. Answered all their questions. Plan: Continue ongoing wound care. Await fecal diverting colostomy. Time Spent With Patient Time: Total time spent is greater than 50% in coordination of care (as documented) at patient's floor/unit and/or counseling patient: Total time spent with greater than 50% in coordination of care (as documented) at patient's floor/unit and/or counseling patient:: 25 - 35 minutes
[2021-05-29] MEDS ORDERED: LIDOCAINE HCL/PF 100 MG/5 ML SYRINGE IV ONE (13:58)
[2021-05-29] MEDS ORDERED: SUGAMMADEX SODIUM 200 MG/2 ML VIAL IV ONE (13:58)
[2021-05-29] MEDS ORDERED: ROCURONIUM 10 MG/ML ML IV ONE (13:58)
[2021-05-29] MEDS ORDERED: DEXAMETHASONE 10 MG/ML VIAL ONE (13:58)
[2021-05-29] MEDS ORDERED: PROPOFOL 200 MG/20 ML VIAL IV ONE (13:58)
[2021-05-29] MEDS ORDERED: MAGNESIUM SULFATE 2 GM/50 ML BAG IV ONE (13:58)
[2021-05-29] MEDS ORDERED: PHENYLephrine 1 MG/10 ML SYRINGE (ANEST) ONE (13:58)
[2021-05-29] MEDS ORDERED: ONDANSETRON 4 MG/2 ML VIAL ONE (13:58)
[2021-05-29] MEDS ORDERED: KETAMINE 50 MG/ML Syringe (ANEST) IV ONE (13:58)
[2021-05-29] MEDS ORDERED: ONDANSETRON 4 MG/2 ML VIAL IV PRN ×2 (14:38→16:15)
[2021-05-29] MEDS ORDERED: diphenhydrAMINE 50 MG/ML VIAL IV PRN (14:38)
[2021-05-29] MEDS ORDERED: LACTATED RINGERS 250 ML IV PRN (14:38)
[2021-05-29] MEDS ORDERED: fentaNYL 100 MCG/2 ML VIAL IV PRN (14:38)
[2021-05-29] MEDS ORDERED: NALOXONE HCL 0.4 MG/ML VIAL IV PRN (14:38)
[2021-05-29] MEDS ORDERED: PROMETHAZINE 25 MG/ML VIAL IV PRN (14:38)
[2021-05-29] MEDS ORDERED: MEPERIDINE 25 MG/ML VIAL IV PRN (14:38)
[2021-05-29] MEDS ORDERED: ACETAMINOPHEN 1,000 MG/100 ML BAG IV ONE (14:38)
[2021-05-29] MEDS ORDERED: LACTATED RINGERS 1,000 ML IV SCH (14:45)
--- NOTE | 2021-05-29 14:58 | Operative Note ---
Brief Operative Note Date of procedure: 05/29/21 Pre-op diagnosis: Sacral decubitus ulcer Post-op diagnosis: same Procedure: Laparoscopic-assisted end sigmoid colostomy Grafts/Implants: No Anesthesia: GETA Findings: Normal anatomy Complications: none Surgeon: Jorge Peña Estimated blood loss (cc): 25 Specimens Removed/Pathology: none sent Condition: stable Disposition: PACU Operative Note Operative Note: After risk benefits and alternatives to the procedure were discussed with the patient at length she verbalized understanding and desire to continue with the procedure. Patient was taken to main operating room placed upon the operative table. General esthesia was induced over endotracheal tube. Patient's prepped and draped in the standard sterile surgical fashion. Surgical timeout was taken to verify patient and procedure being performed. 1% lidocaine half percent Marcaine was used for local anesthesia. A right-sided incision is made in the abdominal cavity was entered under direct vision using a 5 mm Optiview trocar. Abdominal cavity was insufflated with carbon dioxide and visual inspection revealed no injuries. Abdominal expiration revealed small amount of left lower quadrant adhesions and a floppy sigmoid colon That reached the anterior abdominal wall without difficulty. 12 mm right lower quadrant and a 5 mm supraumbilical trochars were then placed under direct vision. The sigmoid colon was fully mobile and so approximately 10 cm proximal to the rectum a mesenteric window was created with blunt and electrocautery dissection. Once the wound was completely open a stapler was used to divide the sigmoid colon without difficulty. The mesentery was then divided inferiorly in such manner as to not devascularized either side of the colon but allowed free mobilization of the colon to the anterior abdominal wall. Once this is done a ostomy site was chosen on the left side of the abdomen just inferior to the umbilicus the skin was opened and the subcutaneous fat was cored out. The fascia was opened in a cruciate incision in the abdomen was entered and the opening was dilated to 2 fingerbreadths. The colon was then brought out into the ostomy incision. The scope was then used to verify no twisting of the colon. The trochars and CO2 were then removed from the abdominal cavity under direct vision. The colon was matured into a standard colostomy using interrupted 3-0 Vicryl sutures. The skin edges on the incisions were closed with interrupted 4 Monocryl sutures and ostomy appliance and skin glue dressings were used for dressings. The patient was then awakened from anesthesia transported postanesthesia care unit awake alert in good condition.
[2021-05-29] MEDS ORDERED: LIDOCAINE 1% 20 ML, BUPIVACAINE W/EPI 0.5% 20 ML SQ ONE (15:10)
[2021-05-29] MEDS: 0.9 % SODIUM CHLORIDE 1,000 ML IV SCH ×2 (15:45→22:11)
[2021-05-29] MEDS ORDERED: IOPAMIDOL 100 ML BOTTLE IV ONE (16:15)
[2021-05-29] MEDS ORDERED: ACETAMINOPHEN 325 MG TABLET PO PRN (16:15)
[2021-05-29] MEDS ORDERED: oxyCODONE HCL 5 MG TABLET PO PRN (16:15)
[2021-05-29] MEDS ORDERED: morphine 4 MG/ML VIAL IV PRN (16:15)
[2021-05-29 16:38] LABS: ALT/SGPT 23 U/L (<40); AST/SGOT 18 U/L (<32); Albumin 2.5 gm/dL (3.2-5.2); Albumin/Globulin Ratio 0.7 (1.0-2.3); Alkaline Phosphatase 69 U/L (39-117); Bilirubin,Direct < 0.2 mg/dL (0-0.3); Bilirubin,Total 0.3 mg/dL (0.1-1.0); Blood Urea Nitrogen 12 mg/dL (8-23); Calcium 8.3 mg/dL (8.6-10.4); Carbon Dioxide 19 mmol/L (22-30); Chloride 97 mmol/L (96-108); Globulin 3.4 gm/dL (2.2-3.7); Glomerular Filtration Rate 95; Glucose 135 mg/dL (70-105); Lactate Dehydrogenase 201 U/L (135-225); Phosphorous 2.1 mg/dL (2.5-4.5); Triglycerides 220 mg/dL (<150); Uric Acid 4.1 mg/dL (2.5-8.0)
[2021-05-29] MEDS ORDERED: POTASSIUM CHLORIDE 20 MEQ TABLET PO ONE (16:42)
[2021-05-29] MEDS ORDERED: POTASSIUM CHLORIDE 40 MEQ in DEXTROSE 5% IN WATER 500 ML IV ONE (17:00)
[2021-05-29] MEDS ORDERED: NEUTRA PHOS 1 PACKET PO SCH (21:00)
[2021-05-29] MEDS ORDERED: ZOLPIDEM 5 MG TABLET PO PRN (21:00)
[2021-05-29] MEDS: ASPIRIN 81 MG TAB.CHEW PO SCH (22:05)
[2021-05-29] MEDS: SENNOSIDES 1 TABLET PO SCH (22:06)
[2021-05-29] MEDS: BACLOFEN 10 MG TABLET PO SCH (22:06)
[2021-05-29] MEDS: Methenamine Hippurate 1 GM Tablet PO SCH (22:09)
[2021-05-30] MEDS: PIPERACILLIN SODIUM/TAZOBACTAM 3.375 GM in DEXTROSE 5% IN WATER 50 ML IV SCH ×3 (05:45→17:12)
[2021-05-30] MEDS: 0.9 % SODIUM CHLORIDE 1,000 ML IV SCH ×3 (06:28→18:49)
[2021-05-30] MEDS: 0.9 % SODIUM CHLORIDE 10 ML SYRINGE IV SCH ×3 (06:28→22:16)
[2021-05-30 07:37] LABS: ALT/SGPT 21 U/L (<40); AST/SGOT 19 U/L (<32); Albumin 2.4 gm/dL (3.2-5.2); Albumin/Globulin Ratio 0.7 (1.0-2.3); Alkaline Phosphatase 68 U/L (39-117); Bilirubin,Direct < 0.2 mg/dL (0-0.3); Bilirubin,Total 0.3 mg/dL (0.1-1.0); Blood Urea Nitrogen 9 mg/dL (8-23); Carbon Dioxide 21 mmol/L (22-30); Chloride 104 mmol/L (96-108); Globulin 3.6 gm/dL (2.2-3.7); Glomerular Filtration Rate 101; Glucose 159 mg/dL (70-105); Lactate Dehydrogenase 219 U/L (135-225); Phosphorous 1.7 mg/dL (2.5-4.5); Triglycerides 162 mg/dL (<150); Uric Acid 3.1 mg/dL (2.5-8.0)
--- NOTE | 2021-05-30 08:05 | General Surgery Progress Note ---
SUBJECTIVE Subjective Patient information: Note initiated : 05/30/21 at 8:04 am Service Date, if different from initiated Date: [] Patient: Bridgette Cuevas 66 y/o F admitted on 05/27/21 for ulcer to coccyx, increased weakness. Chief Complaint: [] Interval history: Postop day #1 status post laparoscopic-assisted diverting sigmoid end colostomy. Patient is doing well this morning without complaints. She has no pain. She has no nausea vomiting fevers or chills. Constitutional Vitals: Vital Signs Temp Pulse Resp BP Pulse Ox 98.0 F 83 18 114/70 98 05/30/21 03:43 05/29/21 18:15 05/30/21 03:43 05/30/21 03:43 05/30/21 03:43 Period Temp Pulse Resp BP Sys/Jeter Pulse Ox Last 24 Hr 96.9 F-98.7 F 65-85 12-25 94-163/48-136 90-100 Intake and Output 05/29/21 05/30/21 05/30/21 21:59 05:59 13:59 Intake Total 1985 1124 50 Output Total 1225 975 Balance 761 149 50 Weight 199 lb 6.4 oz Intake & Output: Intake & Output 05/29/21 05/30/21 05/30/21 21:59 05:59 13:59 Intake Total 1985 1124 50 Output Total 1225 975 Balance 761 149 50 Weight 199 lb 6.4 oz Intake: IV 986 974 50 Sodium Chloride 0.9% 1,000 ml @ 784 406 84 mls/hr IV .[id number] [facility] Rx#: [id number] Zosyn 3.375 gm In Dextrose 5% 100 50 50 in Water 50 ml @ 100 mls/hr IV Q6H [facility] Rx#:[id number] Potassium Chloride 40 Meq In 2 518 Dextrose 5% in Water 500 ml @ 130 mls/hr IV ONCE ONE Rx#: [id number] Oral 150 IV - Manual Only 1000 Output: Urine Catheter Amount 750 975 Stool 75 Estimated Blood Loss 400 Other: Urine Appearance Clear Clear Urine Color Bright Yellow Bright Yellow Urine Odor Normal General appearance: cooperative and no acute distress GI/Abdominal GI/Abdominal exam: Present soft; Absent distended and tenderness Additional comments: Incisions are clean dry and intact. Ostomy is pink, gas in the bag with stool in the bag A/P Narrative A/P Narrative: Postop day #1 status post laparoscopic assisted sigmoid colostomy. Patient has return of bowel function. She is clear for a regular diet and discharge from a surgical standpoint. Please call with any further questions. Time Spent With Patient Time: Total time spent is greater than 50% in coordination of care (as documented) at patient's floor/unit and/or counseling patient:
--- NOTE | 2021-05-30 08:21 | Internal Med Progress Note ---
SUBJECTIVE Subjective Patient information: Note initiated : 05/30/21 at 8:17 am Service Date, if different from initiated Date: [] Patient: Bridgette Cuevas 66 y/o F admitted on 05/27/21 for ulcer to coccyx, increased weakness. Chief Complaint: [] Interval history: History of present illness: Ms. Cuevas is a 66 year old F history of multiple sclerosis with associated bilateral lower extremity paralysis, chronically bedbound, presenting with sacral decubitus ulcer. Patient only had up to stage I sacral decubitus ulcer as per at the bedside until about 10 days ago when he noticed starting of skin breakdown. Patient denies any pain in her sacrum. Patient denies any fever or chills or swellings. Patient denies any change in her appetite. She was being brought her to the ER yesterday night for further evaluations. Vital signs at ED presentations were within normal limits. Labs significant for leukocytosis with WBC 13.4. Venous lactic acid 4.1. Serum sodium 130. Covid screen negative. 05/28: Afebrile overnight. Blood culture from 05/26 growing P mirabilis. Denies any sacral pain. Denies fever or chills. c/o general body weakness. Good appetite. 05/29 Patient scheduled for diverting colostomy today. No new complaints. Awaiting final blood cultures urine cultures and wound cultures. 05/30 Patient status post diverting ostomy. No overnight event or new complaints. Review of Systems: denies headache/fever/chills/nausea/vomiting/chest or abdominal pain/cough/dyspnea/diarrhea. Otherwise see above. Constitutional Vitals: Vital Signs Temp Pulse Resp BP Pulse Ox 98.0 F 83 18 114/70 98 05/30/21 03:43 05/29/21 18:15 05/30/21 03:43 05/30/21 03:43 05/30/21 03:43 Period Temp Pulse Resp BP Sys/Jeter Pulse Ox Last 24 Hr 96.9 F-98.7 F 65-85 12-25 94-163/48-136 90-100 Intake and Output 05/29/21 05/30/21 05/30/21 21:59 05:59 13:59 Intake Total 1986 1124 50 Output Total 1225 975 Balance 761 149 50 Weight 90.446 kg Intake & Output: Intake & Output 05/29/21 05/30/21 05/30/21 21:59 05:59 13:59 Intake Total 1986 1124 50 Output Total 1225 975 Balance 761 149 50 Weight 90.446 kg Intake: IV 986 974 50 Sodium Chloride 0.9% 1,000 ml @ 784 406 84 mls/hr IV .[id number] [facility] Rx#: [id number] Zosyn 3.375 gm In Dextrose 5% 100 50 50 in Water 50 ml @ 100 mls/hr IV Q6H [facility] Rx#:[id number] Potassium Chloride 40 Meq In 2 518 Dextrose 5% in Water 500 ml @ 130 mls/hr IV ONCE ONE Rx#: [id number] Oral 150 IV - Manual Only 1000 Output: Urine Catheter Amount 750 975 Stool 75 Estimated Blood Loss 400 Other: Urine Appearance Clear Clear Urine Color Bright Yellow Bright Yellow Urine Odor Normal Exam: General: Alert, Awake, No acute Distress, obese Eyes/N/T: EOMI, Head/Neck: neck supple, CV: RRR, No murmurs, Pulm: Clear b/l, no wheezing/rhonchi/rales Abd: soft, nontender, +BS x4 Ext: no clubbing/cyanosis/edema Neuro: Alert, LE paraplegia Skin: warm/dry OBJ DATA Labs CBC & Chem 7: 05/28/21 05:34 05/30/21 05:23 Labs: Abnormal Lab Results 05/30/21 05/29/21 05/29/21 05:23 05:13 05:13 MPV [place] # (Auto) VBG Lactic Acid Sodium 132 L Potassium 2.7 L* Carbon Dioxide 21 L 19 L Anion Gap Creatinine 0.5 L Glucose 159 H 135 H Calcium 8.0 L 8.3 L Phosphorus 1.7 L 2.1 L GGT 37 H 38 H C-Reactive Protein 5.80 H Albumin 2.4 L 2.5 L Globulin Albumin/Globulin Ratio 0.7 L 0.7 L Prealbumin Triglycerides 162 H 220 H Procalcitonin 1.16 H 05/28/21 05/28/21 05/28/21 05:34 05:34 05:34 MPV [place] # (Auto) VBG Lactic Acid Sodium Potassium 3.2 L Carbon Dioxide 16 L Anion Gap 22.0 H Creatinine Glucose 108 H Calcium Phosphorus GGT C-Reactive Protein 8.60 H Albumin 2.7 L Globulin 3.9 H Albumin/Globulin Ratio 0.7 L Prealbumin 10.0 L Triglycerides Procalcitonin 2.11 H 05/28/21 05/27/21 05:34 13:56 MPV 11.0 H [place] # (Auto) 1.13 H VBG Lactic Acid 2.3 H Sodium Potassium Carbon Dioxide Anion Gap Creatinine Glucose Calcium Phosphorus GGT C-Reactive Protein Albumin Globulin Albumin/Globulin Ratio Prealbumin Triglycerides Procalcitonin Meds: Medications Acetaminophen (Acetaminophen 325 Mg Tablet) 650 mg PO Q6HP PRN; Protocol PRN Reason: Per Pain Protocol/Fever > 101 Ascorbic Acid (Ascorbic Acid 500 Mg Tablet) 500 mg PO BID [facility] Last Admin: 05/29/21 22:05 Dose: 500 mg Documented by: Aspirin (Aspirin 81 Mg Tab.Chew) 81 mg PO QHS [facility] Last Admin: 05/29/21 22:05 Dose: 81 mg Documented by: Baclofen (Baclofen 10 Mg Tablet) 10 mg PO QHS [facility] Last Admin: 05/29/21 22:06 Dose: 10 mg Documented by: Docusate Sodium (Docusate Sodium 100 Mg Capsule) 100 mg PO BID [facility] Last Admin: 05/29/21 22:06 Dose: Not Given Documented by: Gabapentin (Gabapentin 300 Mg Capsule) 600 mg PO DAILY [facility] Gabapentin (Gabapentin 300 Mg Capsule) 900 mg PO HS [facility] Last Admin: 05/29/21 22:06 Dose: 900 mg Documented by: Heparin Sodium (Porcine) (Heparin 5,000 Unit/Ml Vial) 5,000 unit SQ Q12 [facility] Last Admin: 05/29/21 22:08 Dose: 5,000 unit Documented by: Sodium Chloride (Sodium Chloride 0.9%) 1,000 mls @ 84 mls/hr IV .[id number] [facility] Last Admin: 05/30/21 06:28 Dose: Not Given Documented by: Piperacillin Sod/Tazobactam (Sod 3.375 gm/ Dextrose) 50 mls @ 100 mls/hr IV Q6H [facility]; Protocol Last Infusion: 05/30/21 06:28 Dose: Infused Documented by: Morphine Sulfate (Morphine 4 Mg/Ml Vial) 4 mg IV Q4HP PRN; Protocol PRN Reason: Per Pain Protocol Ondansetron HCl (Ondansetron 4 Mg/2 Ml Vial) 4 mg IV Q6HP PRN PRN Reason: Nausea And Vomiting Oxandrolone (Oxandrolone 2.5 Mg Tablet) 5 mg PO BID [facility] Last Admin: 05/29/21 21:00 Dose: Not Given Documented by: Oxycodone HCl (Oxycodone Hcl 5 Mg Tablet) 5 mg PO Q4HP PRN; Protocol PRN Reason: Per Pain Protocol Oxcarbazepine 150 Mg (Tablet) 1 dose PO BID [facility] Last Admin: 05/29/21 22:10 Dose: 1 dose Documented by: Methenamine Hippurate 1 Gm Tablet 1 dose PO BID [facility] Last Admin: 05/29/21 22:09 Dose: 1 dose Documented by: Senna (Sennosides 1 Tablet) 2 tab PO [facility] Last Admin: 05/29/21 22:06 Dose: Not Given Documented by: Sodium Chloride (0.9 % Sodium Chloride 10 Ml Syringe) 10 ml IV Q8 [facility] Last Admin: 05/30/21 06:28 Dose: Not Given Documented by: Zolpidem Tartrate (Zolpidem 5 Mg Tablet) 5 mg PO HSP PRN PRN Reason: Insomnia ABG Interpretation ABG results: 05/26/21 20:12 ABG Methemoglobin 0.3 L VBG pH 7.36 VBG pCO2 42.0 VBG pO2 25.5 VBG HCO3 22.9 L VBG Total CO2 24.2 L VBG O2 Saturation 37.5 L VBG Base Excess -3 L A/P Narrative A/P Narrative: A: #Stage IV sacral decubitus ulcer w/Infection (Proteus/GNB): s/p diverting colostomy (05/29) -PCT/leukocytosis improved #Bacteremia(Proteus/Bacteroides): repeat BC neg #UTI(Proteus/Enterobacter): #h/o multiple sclerosis w/paraplegia and bedbound: #Hyponatremia, mild: improved #Hypokalemia/Hypophos: improved #Chr Pain + h/o trigeminal Neuralgia: on Oxcarbazepine #Obese: P: -Zosyn -Dr. Bryant following -d/w Dr. Orlando on wednesday -Dr. Peña for diverting colostomy -cont home Gabapentin / Baclofen, Oxycodone as needed moderate pain -pt/ot -CM for placement needs -ppx prophylaxis: Heparin Time Spent With Patient Time: Total time spent is greater than 50% in coordination of care (as document ed) at patient's floor/unit and/or counseling patient: QUALITY Stroke Symptom Onset Unknown: No
[2021-05-30] MEDS: DOCUSATE SODIUM 100 MG CAPSULE PO SCH ×2 (08:55→22:14)
[2021-05-30] MEDS: ASCORBIC ACID 500 MG TABLET PO SCH ×2 (08:56→22:10)
[2021-05-30] MEDS: HEPARIN 5,000 UNIT/ML VIAL SQ SCH ×2 (08:56→22:13)
[2021-05-30] MEDS: NEUTRA PHOS 1 PACKET PO SCH ×2 (08:56→22:13)
[2021-05-30] MEDS: GABAPENTIN 300 MG CAPSULE PO SCH ×2 (08:56→22:11)
[2021-05-30] MEDS: Methenamine Hippurate 1 GM Tablet PO SCH ×2 (08:57→22:13)
[2021-05-30] MEDS: OXANDROLONE 2.5 MG TABLET PO SCH ×2 (08:57→21:00)
--- NOTE | 2021-05-30 17:21 | General Surgery Progress Note ---
SUBJECTIVE Subjective Patient information: Note initiated : 05/30/21 at 5:16 pm Service Date, if different from initiated Date: [] Patient: Bridgette Cuevas 66 y/o F admitted on 05/27/21 for ulcer to coccyx, increased weakness. Chief Complaint: [] POD # 1. S/P Laparoscopic Fang and Diverting end colostomy LLQ. Patient doing well. Constitutional Vitals: Vital Signs Temp Pulse Resp BP Pulse Ox 98.7 F 89 18 111/59 96 05/30/21 16:00 05/30/21 16:00 05/30/21 16:00 05/30/21 16:00 05/30/21 16:00 Period Temp Pulse Resp BP Sys/Jeter Pulse Ox Last 24 Hr 97.1 F-98.7 F 78-89 16-20 98-114/59-70 94-98 Intake and Output 05/30/21 05/30/21 05/30/21 05:59 13:59 21:59 Intake Total 1124 100 260 Output Total 975 650 Balance 149 100 -390 Intake & Output: Intake & Output 05/30/21 05/30/21 05/30/21 05:59 13:59 21:59 Intake Total 1124 100 260 Output Total 975 650 Balance 149 100 -390 Intake: IV 974 100 Sodium Chloride 0.9% 1,000 ml @ 406 84 mls/hr IV .[id number] [facility] Rx#: [id number] Zosyn 3.375 gm In Dextrose 5% 50 100 in Water 50 ml @ 100 mls/hr IV Q6H [facility] Rx#:[id number] Potassium Chloride 40 Meq In 518 Dextrose 5% in Water 500 ml @ 130 mls/hr IV ONCE ONE Rx#: [id number] Oral 150 260 Output: Urine Catheter Amount 975 650 Other: Meal Lunch Percent of Meal Consumed 100% Urine Appearance Clear Clear Urine Color Bright Yellow Straw Urine Odor Normal Normal Stool Size Moderate Stool Color Brown Blood Tinged Stool Consistency Soft Exam: AVSS. No changes in MELLISA. Local wound care is ongoing. Labs: Prealbumin is 10 Soft abdomen. Clean incisions. OSTOMY functioning. Flatus and soft brown stool in bag. Patient would prefer to go home after discharge. A/P Narrative A/P Narrative: Assessment: Satisfactory post surgical progress. APPRECIATE Dr. PENDLETON' help with colostomy. Recommend Nutrition supplements Continue with ongoing local wound care / hygiene. Plan: Spoke with Porsper s/o ARLYN and patients daughter. OK for d/c when arrangements complete. Will continue f/u at clinic for wound care. Time Spent With Patient Time: Total time spent is greater than 50% in coordination of care (as documented) at patient's floor/unit and/or counseling patient: Total time spent with greater than 50% in coordination of care (as documented) at patient's floor/unit and/or counseling patient:: Greater than 35 minutes
[2021-05-30] MEDS: BACLOFEN 10 MG TABLET PO SCH (22:10)
[2021-05-30] MEDS: ASPIRIN 81 MG TAB.CHEW PO SCH (22:10)
[2021-05-30] MEDS: GENTAMICIN SULFATE 40 MG, CLINDAMYCIN 300 MG in SODIUM CHLORIDE IRRIG SOLUTION 500 ML IRR SCH (22:14)
[2021-05-30] MEDS: SENNOSIDES 1 TABLET PO SCH (22:15)
[2021-05-31] MEDS: PIPERACILLIN SODIUM/TAZOBACTAM 3.375 GM in DEXTROSE 5% IN WATER 50 ML IV SCH ×4 (02:21→17:31)
[2021-05-31 06:55] LABS: Phosphorous 2.2 mg/dL (2.5-4.5)
[2021-05-31] MEDS: 0.9 % SODIUM CHLORIDE 10 ML SYRINGE IV SCH ×3 (06:57→19:34)
[2021-05-31 06:58] LABS: Blood Urea Nitrogen 13 mg/dL (8-23); Calcium 8.5 mg/dL (8.6-10.4); Carbon Dioxide 28 mmol/L (22-30); Chloride 104 mmol/L (96-108); Glomerular Filtration Rate 95; Glucose 121 mg/dL (70-105)
[2021-05-31] MEDS: 0.9 % SODIUM CHLORIDE 1,000 ML IV SCH (07:09)
--- NOTE | 2021-05-31 08:05 | Internal Med Progress Note ---
SUBJECTIVE Subjective Patient information: Note initiated : 05/31/21 at 8:03 am Service Date, if different from initiated Date: [] Patient: Bridgette Cuevas a 66 y/o F admitted on 05/27/21 for ulcer to coccyx, increased weakness. Chief Complaint: [] Interval history: History of present illness: Ms. Cuevas is a 66 year old F history of multiple sclerosis with associated bilateral lower extremity paralysis, chronically bedbound, presenting with sacral decubitus ulcer. Patient only had up to stage I sacral decubitus ulcer as per at the bedside until about 10 days ago when he noticed starting of skin breakdown. Patient denies any pain in her sacrum. Patient denies any fever or chills or swellings. Patient denies any change in her appetite. She was being brought her to the ER yesterday night for further evaluations. Vital signs at ED presentations were within normal limits. Labs significant for leukocytosis with WBC 13.4. Venous lactic acid 4.1. Serum sodium 130. Covid screen negative. 05/28: Afebrile overnight. Blood culture from 05/26 growing P mirabilis. Denies any sacral pain. Denies fever or chills. c/o general body weakness. Good appetite. 05/29 Patient scheduled for diverting colostomy today. No new complaints. Awaiting final blood cultures urine cultures and wound cultures. 05/30 Patient status post diverting ostomy. No overnight event or new complaints. 05/31 No new complaints. Electrolytes improved. Awaiting placement likely on Wednesday. We will also talk to Dr. Orlando at that time regarding the positive cultures for wound and blood. Review of Systems: denies headache/fever/chills/nausea/vomiting/chest or abdominal pain/cough/dyspnea/diarrhea. Otherwise see above. Constitutional Vitals: Vital Signs Temp Pulse Resp BP Pulse Ox 97.2 F 66 16 114/70 91 05/31/21 06:57 05/31/21 06:57 05/31/21 06:57 05/31/21 06:57 05/31/21 06:57 Period Temp Pulse Resp BP Sys/Jeter Pulse Ox Last 24 Hr 97.2 F-100.1 F 66-89 16-20 91-114/55-70 91-98 Intake and Output 05/30/21 05/31/21 05/31/21 21:59 05:59 13:59 Intake Total 1904 50 Output Total 950 1750 Balance 954 -1700 Weight 91.626 kg Intake & Output: Intake & Output 05/30/21 05/31/21 05/31/21 21:59 05:59 13:59 Intake Total 1904 50 Output Total 950 1750 Balance 954 -1700 Weight 91.626 kg Intake: Nourishment/Supplement quantity 240 (ml) IV 1044 50 Sodium Chloride 0.9% 1,000 ml @ 994 84 mls/hr IV .[id number] [facility] Rx#: [id number] Zosyn 3.375 gm In Dextrose 5% 50 50 in Water 50 ml @ 100 mls/hr IV Q6H [facility] Rx#:[id number] Oral 620 Output: Urine Catheter Amount 950 1450 Stool 300 Other: Meal Dinner Percent of Meal Consumed 100% Feeding Ability Independent Nourishment/Supplement name Ensure Enlive Urine Appearance Clear Clear Uretheral (Barba) Clear Urine Color Bright Yellow Bright Yellow Uretheral (Barba) Bright Yellow Urine Odor Normal Normal Stool Size Moderate Stool Color Brown Brown Stool Consistency Soft Soft Exam: General: Alert, Awake, No acute Distress, obese Eyes/N/T: EOMI, Head/Neck: neck supple, CV: RRR, No murmurs, Pulm: Clear b/l, no wheezing/rhonchi/rales Abd: soft, nontender, +BS x4 Ext: no clubbing/cyanosis/edema Neuro: Alert, LE paraplegia Skin: warm/dry OBJ DATA Labs CBC & Chem 7: 05/28/21 05:34 05/31/21 05:17 Labs: Abnormal Lab Results 05/31/21 05/31/21 05/30/21 05:17 05:17 05:23 MPV [place] # (Auto) Sodium Potassium Carbon Dioxide 21 L Anion Gap 6.0 L Creatinine 0.5 L Glucose 121 H 159 H Calcium 8.5 L 8.0 L Phosphorus 2.2 L 1.7 L GGT 37 H C-Reactive Protein Albumin 2.4 L Globulin Albumin/Globulin Ratio 0.7 L Triglycerides 162 H Procalcitonin 05/29/21 05/29/21 05/28/21 05:13 05:13 05:34 MPV [place] # (Auto) Sodium 132 L Potassium 2.7 L* Carbon Dioxide 19 L Anion Gap Creatinine Glucose 135 H Calcium 8.3 L Phosphorus 2.1 L GGT 38 H C-Reactive Protein 5.80 H Albumin 2.5 L Globulin Albumin/Globulin Ratio 0.7 L Triglycerides 220 H Procalcitonin 1.16 H 2.11 H 05/28/21 05/28/21 05:34 05:34 MPV 11.0 H [place] # (Auto) 1.13 H Sodium Potassium 3.2 L Carbon Dioxide 16 L Anion Gap 22.0 H Creatinine Glucose 108 H Calcium Phosphorus GGT C-Reactive Protein Albumin 2.7 L Globulin 3.9 H Albumin/Globulin Ratio 0.7 L Triglycerides Procalcitonin Meds: Medications Acetaminophen (Acetaminophen 325 Mg Tablet) 650 mg PO Q6HP PRN; Protocol PRN Reason: Per Pain Protocol/Fever > 101 Ascorbic Acid (Ascorbic Acid 500 Mg Tablet) 500 mg PO BID [facility] Last Admin: 05/30/21 22:10 Dose: 500 mg Documented by: Aspirin (Aspirin 81 Mg Tab.Chew) 81 mg PO QHS [facility] Last Admin: 05/30/21 22:10 Dose: 81 mg Documented by: Baclofen (Baclofen 10 Mg Tablet) 10 mg PO QHS [facility] Last Admin: 05/30/21 22:10 Dose: 10 mg Documented by: Docusate Sodium (Docusate Sodium 100 Mg Capsule) 100 mg PO BID [facility] Last Admin: 05/30/21 22:14 Dose: Not Given Documented by: Gabapentin (Gabapentin 300 Mg Capsule) 600 mg PO DAILY [facility] Last Admin: 05/30/21 08:56 Dose: 600 mg Documented by: Gabapentin (Gabapentin 300 Mg Capsule) 900 mg PO HS [facility] Last Admin: 05/30/21 22:11 Dose: 900 mg Documented by: Heparin Sodium (Porcine) (Heparin 5,000 Unit/Ml Vial) 5,000 unit SQ Q12 [facility] Last Admin: 05/30/21 22:13 Dose: 5,000 unit Documented by: Sodium Chloride (Sodium Chloride 0.9%) 1,000 mls @ 84 mls/hr IV .[id number] [facility] Last Admin: 05/31/21 07:09 Dose: Not Given Documented by: Piperacillin Sod/Tazobactam (Sod 3.375 gm/ Dextrose) 50 mls @ 100 mls/hr IV Q6H [facility]; Protocol Last Admin: 05/31/21 06:58 Dose: 100 mls/hr Documented by: Gentamicin Sulfate 40 mg/Clindamycin Phosphate 300 mg/Sodium Chloride 503 mls @ 0 mls/hr IRR Q12 [facility] Last Admin: 05/30/21 22:14 Dose: 1 mls/hr Documented by: Morphine Sulfate (Morphine 4 Mg/Ml Vial) 4 mg IV Q4HP PRN; Protocol PRN Reason: Per Pain Protocol Ondansetron HCl (Ondansetron 4 Mg/2 Ml Vial) 4 mg IV Q6HP PRN PRN Reason: Nausea And Vomiting Oxandrolone (Oxandrolone 2.5 Mg Tablet) 5 mg PO BID [facility] Last Admin: 05/30/21 21:00 Dose: Not Given Documented by: Oxycodone HCl (Oxycodone Hcl 5 Mg Tablet) 5 mg PO Q4HP PRN; Protocol PRN Reason: Per Pain Protocol Oxcarbazepine 150 Mg (Tablet) 1 dose PO BID [facility] Last Admin: 05/30/21 22:13 Dose: 1 dose Documented by: Methenamine Hippurate 1 Gm Tablet 1 dose PO BID [facility] Last Admin: 05/30/21 22:13 Dose: 1 dose Documented by: Senna (Sennosides 1 Tablet) 2 tab PO HS [facility] Last Admin: 05/30/21 22:15 Dose: Not Given Documented by: Sodium Chloride (0.9 % Sodium Chloride 10 Ml Syringe) 10 ml IV Q8 [facility] Last Admin: 05/31/21 06:57 Dose: Not Given Documented by: Zolpidem Tartrate (Zolpidem 5 Mg Tablet) 5 mg PO HSP PRN PRN Reason: Insomnia ABG Interpretation ABG results: 05/26/21 20:12 ABG Methemoglobin 0.3 L VBG pH 7.36 VBG pCO2 42.0 VBG pO2 25.5 VBG HCO3 22.9 L VBG Total CO2 24.2 L VBG O2 Saturation 37.5 L VBG Base Excess -3 L A/P Narrative A/P Narrative: A: #Stage IV sacral decubitus ulcer w/Infection (Proteus): s/p diverting colostomy (05/29) by Dr. Peña -PCT/leukocytosis improved #Bacteremia(Proteus/Bacteroides): repeat BC neg #UTI(Proteus/Enterobacter): #h/o multiple sclerosis w/paraplegia and bedbound: #Hyponatremia, mild: improved #Hypokalemia/Hypophos: improved #Chr Pain + h/o trigeminal Neuralgia: on Oxcarbazepine #Obese: P: -Zosyn -Dr. Bryant following -d/w Dr. Orlando on wednesday -cont home Gabapentin / Baclofen, Oxycodone as needed moderate pain -pt/ot -CM for placement needs -ppx prophylaxis: Heparin Time Spent With Patient Time: Total time spent is greater than 50% in coordination of care (as documented) at patient's floor/unit and/or counseling patient: QUALITY Stroke Symptom Onset Unknown: No
[2021-05-31] MEDS: Methenamine Hippurate 1 GM Tablet PO SCH ×2 (08:36→21:12)
[2021-05-31] MEDS: ASCORBIC ACID 500 MG TABLET PO SCH ×2 (08:36→21:11)
[2021-05-31] MEDS: GABAPENTIN 300 MG CAPSULE PO SCH ×2 (08:36→21:10)
[2021-05-31] MEDS: DOCUSATE SODIUM 100 MG CAPSULE PO SCH ×2 (08:36→21:11)
[2021-05-31] MEDS: OXANDROLONE 2.5 MG TABLET PO SCH (08:37)
[2021-05-31] MEDS: NEUTRA PHOS 1 PACKET PO SCH ×2 (08:37→21:09)
[2021-05-31] MEDS: HEPARIN 5,000 UNIT/ML VIAL SQ SCH ×2 (08:38→21:09)
[2021-05-31] MEDS: GENTAMICIN SULFATE 40 MG, CLINDAMYCIN 300 MG in SODIUM CHLORIDE IRRIG SOLUTION 500 ML IRR SCH ×2 (08:38→21:13)
--- NOTE | 2021-05-31 11:15 | General Surgery Progress Note ---
SUBJECTIVE Subjective Patient information: Note initiated : 05/31/21 at 11:14 am Service Date, if different from initiated Date: [] Patient: Bridgette Cuevas 66 y/o F admitted on 05/27/21 for ulcer to coccyx, increased weakness. Chief Complaint: [] Interval history: Postop laparoscopic-assisted end diverting colostomy. Patient is doing well no complaints, tolerating p.o. diet, has good ostomy function. Constitutional Vitals: Vital Signs Temp Pulse Resp BP Pulse Ox 97.2 F 66 18 114/70 91 05/31/21 06:57 05/31/21 06:57 05/31/21 08:00 05/31/21 06:57 05/31/21 06:57 Period Temp Pulse Resp BP Sys/Jeter Pulse Ox Last 24 Hr 97.2 F-100.1 F 66-89 16-20 91-114/55-70 91-98 Intake and Output 05/30/21 05/31/21 05/31/21 21:59 05:59 13:59 Intake Total 1904 50 1050 Output Total 950 1750 Balance 954 -1700 1050 Weight 202 lb Intake & Output: Intake & Output 05/30/21 05/31/21 05/31/21 21:59 05:59 13:59 Intake Total 1904 50 1050 Output Total 950 1750 Balance 954 -1700 1050 Weight 202 lb Intake: Nourishment/Supplement quantity 240 (ml) IV 1044 50 1050 Sodium Chloride 0.9% 1,000 ml @ 994 1000 84 mls/hr IV .[id number] [facility] Rx#: [id number] Zosyn 3.375 gm In Dextrose 5% 50 50 50 in Water 50 ml @ 100 mls/hr IV Q6H [facility] Rx#:[id number] Oral 620 Output: Urine Catheter Amount 950 1450 Stool 300 Other: Meal Dinner Breakfast Percent of Meal Consumed 100% 100% Feeding Ability Independent Independent Nourishment/Supplement name Ensure Enlive Urine Appearance Clear Clear Uretheral (Barba) Clear Clear Urine Color Bright Yellow Bright Yellow Uretheral (Barba) Bright Yellow Bright Yellow Urine Odor Normal Normal Stool Size Moderate Moderate Stool Color Brown Brown Brown Stool Consistency Soft Soft Soft General appearance: cooperative and no acute distress GI/Abdominal GI/Abdominal exam: Present soft; Absent distended and tenderness A/P Narrative A/P Narrative: Patient doing as expected postop diverting ostomy. Patient is clear for diet, activity and discharge as needed. Time Spent With Patient Time: Total time spent is greater than 50% in coordination of care (as documented) at patient's floor/unit and/or counseling patient:
[2021-05-31] MEDS ORDERED: OXANDROLONE 10 MG TABLET PO SCH (12:00)
--- NOTE | 2021-05-31 15:54 | General Surgery Progress Note ---
SUBJECTIVE Subjective Patient information: Note initiated : 05/31/21 at 3:51 pm Service Date, if different from initiated Date: [] Patient: Bridgette Cuevas 66 y/o F admitted on 05/27/21 for ulcer to coccyx, increased weakness. Chief Complaint: [] Additional PMFSH (Level 3 Only): Seen on rounds. Progress reviewed with Samantha Siu. Constitutional Vitals: Vital Signs Temp Pulse Resp BP Pulse Ox 97.3 F 65 16 112/73 91 05/31/21 15:47 05/31/21 15:47 05/31/21 15:47 05/31/21 15:47 05/31/21 15:47 Period Temp Pulse Resp BP Sys/Jeter Pulse Ox Last 24 Hr 97.1 F-100.1 F 64-89 16-20 91-118/55-73 91-98 Intake and Output 05/31/21 05/31/21 05/31/21 05:59 13:59 21:59 Intake Total 50 1100 Output Total 1750 500 Balance -1700 600 Weight 202 lb Intake & Output: Intake & Output 05/31/21 05/31/21 05/31/21 05:59 13:59 21:59 Intake Total 50 1100 Output Total 1750 500 Balance -1700 600 Weight 202 lb Intake: IV 50 1100 Sodium Chloride 0.9% 1,000 ml @ 1000 84 mls/hr IV .[id number] [facility] Rx#: [id number] Zosyn 3.375 gm In Dextrose 5% 50 100 in Water 50 ml @ 100 mls/hr IV Q6H [facility] Rx#:[id number] Output: Urine Catheter Amount 1450 500 Stool 300 Other: Meal Breakfast Percent of Meal Consumed 100% Feeding Ability Independent Urine Appearance Clear Clear Uretheral (Barba) Clear Urine Color Bright Yellow Bright Yellow Uretheral (Barba) Bright Yellow Urine Odor Normal Stool Size Moderate Stool Color Brown Brown Stool Consistency Soft Soft Exam: AVSS. No changes MELLISA. Soft abdomen. Functioning stoma. Stool in bag. Incisions CDI, Sacral perineal wounds cleaned and redressed. A/P Narrative A/P Narrative: Assessment: Slow, Steady progress. Plan: Continue current treatment. Anticipate D/C after w/e Out patient f/u later. Time Spent With Patient Time: Total time spent is greater than 50% in coordination of care (as documented) at patient's floor/unit and/or counseling patient: Total time spent with greater than 50% in coordination of care (as documented) at patient's floor/unit and/or counseling patient:: 15 - 24 minutes
[2021-05-31] MEDS: OXANDROLONE 10 MG TABLET PO SCH (17:32)
[2021-05-31] MEDS: ASPIRIN 81 MG TAB.CHEW PO SCH (21:11)
[2021-05-31] MEDS: SENNOSIDES 1 TABLET PO SCH (21:12)
[2021-05-31] MEDS: BACLOFEN 10 MG TABLET PO SCH (21:12)
[2021-06-01] MEDS: 0.9 % SODIUM CHLORIDE 10 ML SYRINGE IV SCH ×4 (00:09→20:25)
[2021-06-01] MEDS: PIPERACILLIN SODIUM/TAZOBACTAM 3.375 GM in DEXTROSE 5% IN WATER 50 ML IV SCH ×4 (00:09→17:22)
--- NOTE | 2021-06-01 08:09 | Internal Med Progress Note ---
SUBJECTIVE Subjective Patient information: Note initiated : 06/01/21 at 8:08 am Service Date, if different from initiated Date: [] Patient: Bridgette Cuevas a 66 y/o F admitted on 05/27/21 for ulcer to coccyx, increased weakness. Chief Complaint: [] Interval history: History of present illness: Ms. Cuevas is a 66 year old F history of multiple sclerosis with associated bilateral lower extremity paralysis, chronically bedbound, presenting with sacral decubitus ulcer. Patient only had up to stage I sacral decubitus ulcer as per at the bedside until about 10 days ago when he noticed starting of skin breakdown. Patient denies any pain in her sacrum. Patient denies any fever or chills or swellings. Patient denies any change in her appetite. She was being brought her to the ER yesterday night for further evaluations. Vital signs at ED presentations were within normal limits. Labs significant for leukocytosis with WBC 13.4. Venous lactic acid 4.1. Serum sodium 130. Covid screen negative. 05/28: Afebrile overnight. Blood culture from 05/26 growing P mirabilis. Denies any sacral pain. Denies fever or chills. c/o general body weakness. Good appetite. 05/29 Patient scheduled for diverting colostomy today. No new complaints. Awaiting final blood cultures urine cultures and wound cultures. 05/30 Patient status post diverting ostomy. No overnight event or new complaints. 05/31 No new complaints. Electrolytes improved. Awaiting placement likely on Wednesday. We will also talk to Dr. Orlando at that time regarding the positive cultures for wound and blood. 06/01 Slept well. No overnight events. No new complaints. Likely placement tomorrow. Review of Systems: denies headache/fever/chills/nausea/vomiting/chest or abdominal pain/cough/dyspnea/diarrhea. Otherwise see above. Constitutional Vitals: Vital Signs Temp Pulse Resp BP Pulse Ox 97.6 F 84 16 119/76 95 06/01/21 07:22 06/01/21 07:22 06/01/21 07:22 06/01/21 07:22 06/01/21 07:22 Period Temp Pulse Resp BP Sys/Jeter Pulse Ox Last 24 Hr 97.1 F-100.1 F 64-84 16-18 93-119/59-76 91-96 Intake and Output 05/31/21 06/01/21 06/01/21 21:59 05:59 13:59 Intake Total 50 170 50 Output Total 1450 775 Balance -1400 -605 50 Weight 92.669 kg Intake & Output: Intake & Output 05/31/21 06/01/21 06/01/21 21:59 05:59 13:59 Intake Total 50 170 50 Output Total 1450 775 Balance -1400 -605 50 Weight 92.669 kg Intake: IV 50 50 50 Zosyn 3.375 gm In Dextrose 5% 50 50 50 in Water 50 ml @ 100 mls/hr IV Q6H [facility] Rx#:[id number] Oral 0 120 Output: Urine Catheter Amount 1450 775 Other: Urine Appearance Clear Clear Uretheral (Barba) Clear Urine Color Bright Yellow Bright Yellow Uretheral (Barba) Bright Yellow Urine Odor Normal Normal Stool Size Moderate Stool Color Brown Stool Consistency Soft Exam: General: Alert, Awake, No acute Distress, obese Eyes/N/T: EOMI, Head/Neck: neck supple, CV: RRR, No murmurs, Pulm: Clear b/l, no wheezing/rhonchi/rales Abd: soft, nontender, +BS x4 Ext: no clubbing/cyanosis/edema Neuro: Alert, LE paraplegia Skin: warm/dry OBJ DATA Labs CBC & Chem 7: 05/28/21 05:34 05/31/21 05:17 Labs: Abnormal Lab Results 05/31/21 05/31/21 05/30/21 05:17 05:17 05:23 Sodium Potassium Carbon Dioxide 21 L Anion Gap 6.0 L Creatinine 0.5 L Glucose 121 H 159 H Calcium 8.5 L 8.0 L Phosphorus 2.2 L 1.7 L GGT 37 H C-Reactive Protein Albumin 2.4 L Albumin/Globulin Ratio 0.7 L Triglycerides 162 H 05/29/21 05:13 Sodium 132 L Potassium 2.7 L* Carbon Dioxide 19 L Anion Gap Creatinine Glucose 135 H Calcium 8.3 L Phosphorus 2.1 L GGT 38 H C-Reactive Protein 5.80 H Albumin 2.5 L Albumin/Globulin Ratio 0.7 L Triglycerides 220 H Meds: Medications Acetaminophen (Acetaminophen 325 Mg Tablet) 650 mg PO Q6HP PRN; Protocol PRN Reason: Per Pain Protocol/Fever > 101 Last Admin: 05/31/21 19:24 Dose: 650 mg Documented by: Ascorbic Acid (Ascorbic Acid 500 Mg Tablet) 500 mg PO BID [facility] Last Admin: 05/31/21 21:11 Dose: 500 mg Documented by: Aspirin (Aspirin 81 Mg Tab.Chew) 81 mg PO QHS [facility] Last Admin: 05/31/21 21:11 Dose: 81 mg Documented by: Baclofen (Baclofen 10 Mg Tablet) 10 mg PO QHS [facility] Last Admin: 05/31/21 21:12 Dose: 10 mg Documented by: Docusate Sodium (Docusate Sodium 100 Mg Capsule) 100 mg PO BID [facility] Last Admin: 05/31/21 21:11 Dose: 100 mg Documented by: Gabapentin (Gabapentin 300 Mg Capsule) 600 mg PO DAILY [facility] Last Admin: 05/31/21 08:36 Dose: 600 mg Documented by: Gabapentin (Gabapentin 300 Mg Capsule) 900 mg PO HS [facility] Last Admin: 05/31/21 21:10 Dose: 900 mg Documented by: Heparin Sodium (Porcine) (Heparin 5,000 Unit/Ml Vial) 5,000 unit SQ Q12 [facility] Last Admin: 05/31/21 21:09 Dose: 5,000 unit Documented by: Piperacillin Sod/Tazobactam (Sod 3.375 gm/ Dextrose) 50 mls @ 100 mls/hr IV Q6H [facility]; Protocol Last Infusion: 06/01/21 06:20 Dose: Infused Documented by: Gentamicin Sulfate 40 mg/Clindamycin Phosphate 300 mg/Sodium Chloride 503 mls @ 0 mls/hr IRR Q12 [facility] Last Admin: 05/31/21 21:13 Dose: 1 mls/hr Documented by: Morphine Sulfate (Morphine 4 Mg/Ml Vial) 4 mg IV Q4HP PRN; Protocol PRN Reason: Per Pain Protocol Ondansetron HCl (Ondansetron 4 Mg/2 Ml Vial) 4 mg IV Q6HP PRN PRN Reason: Nausea And Vomiting [facility]and[facility] ([facility] Mg [facility] Admin: 05/31/21 17:32 Dose: 5 mg Documented by: Oxycodone HCl (Oxycodone Hcl 5 Mg Tablet) 5 mg PO Q4HP PRN; Protocol PRN Reason: Per Pain Protocol Oxcarbazepine 150 Mg (Tablet) 1 dose PO BID [facility] Last Admin: 05/31/21 21:12 Dose: 1 dose Documented by: Methenamine Hippurate 1 Gm Tablet 1 dose PO BID [facility] Last Admin: 05/31/21 21:12 Dose: 1 dose Documented by: Senna (Sennosides 1 Tablet) 2 tab PO HS [facility] Last Admin: 05/31/21 21:12 Dose: 2 tab Documented by: Sodium Chloride (0.9 % Sodium Chloride 10 Ml Syringe) 10 ml IV Q8 [facility] Last Admin: 06/01/21 05:48 Dose: 10 ml Documented by: Zolpidem Tartrate (Zolpidem 5 Mg Tablet) 5 mg PO HSP PRN PRN Reason: Insomnia ABG Interpretation ABG results: 05/26/21 20:12 ABG Methemoglobin 0.3 L VBG pH 7.36 VBG pCO2 42.0 VBG pO2 25.5 VBG HCO3 22.9 L VBG Total CO2 24.2 L VBG O2 Saturation 37.5 L VBG Base Excess -3 L A/P Narrative A/P Narrative: A: #Stage IV sacral decubitus ulcer w/Infection (Proteus): s/p diverting colostomy (05/29) by Dr. Peña -PCT/leukocytosis improved #Bacteremia(Proteus/Bacteroides): repeat BC neg #UTI(Proteus/Enterobacter): #h/o multiple sclerosis w/paraplegia and bedbound: #Hyponatremia, mild: improved #Hypokalemia/Hypophos: improved #Chr Pain + h/o trigeminal Neuralgia: on Oxcarbazepine #Obese: P: -Zosyn -Dr. Bryant following -d/w Dr. Orlando on wednesday -cont home Gabapentin / Baclofen, Oxycodone as needed moderate pain -pt/ot -CM for placement needs -ppx prophylaxis: Heparin Time Spent With Patient Time: Total time spent is greater than 50% in coordination of care (as documented) at patient's floor/unit and/or counseling patient: QUALITY Stroke Symptom Onset Unknown: No
[2021-06-01] MEDS: GABAPENTIN 300 MG CAPSULE PO SCH ×2 (08:48→20:23)
[2021-06-01] MEDS: HEPARIN 5,000 UNIT/ML VIAL SQ SCH ×2 (08:48→20:25)
[2021-06-01] MEDS: OXANDROLONE 10 MG TABLET PO SCH ×2 (08:49→17:22)
[2021-06-01] MEDS: Methenamine Hippurate 1 GM Tablet PO SCH ×2 (08:49→20:25)
[2021-06-01] MEDS: DOCUSATE SODIUM 100 MG CAPSULE PO SCH ×2 (08:49→20:24)
[2021-06-01] MEDS: ASCORBIC ACID 500 MG TABLET PO SCH ×2 (08:49→20:24)
[2021-06-01] MEDS: GENTAMICIN SULFATE 40 MG, CLINDAMYCIN 300 MG in SODIUM CHLORIDE IRRIG SOLUTION 500 ML IRR SCH ×2 (08:50→20:26)
--- NOTE | 2021-06-01 09:57 | Discharge Summary ---
Discharge Provider Provider Patient information: Note initiated : 06/01/21 at 9:56 am Service Date, if different from initiated Date: [] Patient: Bridgette Ceuvas 66 y/o F admitted on 05/27/21 for ulcer to coccyx, increased weakness. Chief Complaint: [] Date of admission: 05/27/21 14:17 Primary care physician: Sen Paez PA-C Consults: 05/27/21 Consult to Physician [CONS] Stat Comment: sacral ulcer Consulting Provider: Dax Bryant Reason For Exam: Physician to Consult 05/27/21 12:23 Consult to Physician [CONS] Stat Comment: Consulting Provider: Myles Lal Reason For Exam: Physician to Consult 05/27/21 15:28 Consult to Physician [CONS] Routine Comment: Surgery consult Consulting Provider: Jorge Peña Reason For Exam: Physician to Consult Discharge Meds Discharge Medications Home Medications aspirin 81 mg tablet,delayed release 81 mg PO QHS tab 03/27/15 [History Confirmed 05/27/21 Last Taken 05/26/21 18:00] flaxseed 1,000 mg capsule 03/27/15 [History Confirmed 05/27/21 Last Taken 11/19/17 20:30] ascorbate calcium (vitamin C) 500 mg tablet 500 mg PO BID #180 tab 02/13/21 [Rx Confirmed 05/27/21 Last Taken 05/26/21 12:00] methenamine hippurate 1 gram tablet 1 g PO BID #60 tab 02/13/21 [Rx Confirmed 05/27/21 Last Taken 04/27/21] oxcarbazepine 150 mg PO BID 05/27/21 [History Confirmed 05/27/21 Last Taken Unknown] COURSE Hospital Course Hospital course: Interval history: History of present illness: Ms. Cuevas is a 66 year old F history of multiple sclerosis with associated bilateral lower extremity par alysis, chronically bedbound, presenting with sacral decubitus ulcer. Patient only had up to stage I sacral decubitus ulcer as per at the bedside until about 10 days ago when he noticed starting of skin breakdown. Patient denies any pain in her sacrum. Patient denies any fever or chills or swellings. Patient denies any change in her appetite. She was being brought her to the ER yesterday night for further evaluations. Vital signs at ED presentations were within normal limits. Labs significant for leukocytosis with WBC 13.4. Venous lactic acid 4.1. Serum sodium 130. Covid screen negative. 05/28: Afebrile overnight. Blood culture from 05/26 growing P mirabilis. Denies any sacral pain. Denies fever or chills. c/o general body weakness. Good appetite. 05/29 Patient scheduled for diverting colostomy today. No new complaints. Awaiting final blood cultures urine cultures and wound cultures. 05/30 Patient status post diverting ostomy. No overnight event or new complaints. 05/31 No new complaints. Electrolytes improved. Awaiting placement likely on Wednesday. We will also talk to Dr. Orlando at that time regarding the positive cultures for wound and blood. 06/01 Slept well. No overnight events. No new complaints. Likely placement tomorrow. Given comorbidities patient high risk for readmission A/P Narrative: A: #Stage IV sacral decubitus ulcer w/Infection (Proteus): s/p diverting colostomy (05/29) by Dr. Peña -PCT/leukocytosis improved #Bacteremia(Proteus/Bacteroides): repeat BC neg #UTI(Proteus/Enterobacter): #h/o multiple sclerosis w/paraplegia and bedbound: #Hyponatremia, mild: improved #Hypokalemia/Hypophos: improved #Chr Pain + h/o trigeminal Neuralgia: on Oxcarbazepine #Obese: Discharge diagnosis: Sacral decubitus ulcer with infection bacteremia urinary tract infection Secondary discharge diagnosis: Multiple sclerosis electrolyte imbalance chronic pain obesity Time Spent with Patient Time attestation: Total time spent providing and/or coordinating discharge services: Time spent: Greater than 30 minutes EXAM Constitutional Vitals: Temp Pulse Resp BP Pulse Ox 97.6 F 84 16 119/76 95 06/01/21 07:22 06/01/21 07:22 06/01/21 07:22 06/01/21 07:22 06/01/21 07:22 Discharge Data Data Completed and Pending Labs on day of discharge: Preliminary micro results at discharge 05/28/21 09:51 Blood Culture - Preliminary Blood 05/28/21 09:59 Blood Culture - Preliminary Blood Discharge Plan Patient/Caregiver Discharge Instructions Activity: increase activity as tolerated Diet: Regular Diet Prescriptions: Continued methenamine hippurate 1 gram tablet 1 g PO BID Qty: 60 RF: 11 ascorbate calcium (vitamin C) 500 mg tablet 500 mg PO BID Qty: 180 RF: 11 oxcarbazepine 150 mg tablet 150 mg PO BID RF: 0 aspirin 81 mg tablet,delayed release (DR/EC) 81 mg PO QHS RF: 0 (DME) flaxseed 1,000 mg capsule 1,000 mg .ROUTE .MEDSUPPLY RF: 0 Follow Up Plan Follow up with: Sen Paez PA-C [Primary Care Provider] - Dax Bryant MD [Physician] - Jorge Peña MD [Physician] - Patient Disposition: Xfer SNF Prognosis: Fair Rehab Potential: Fair I certify that the patient requires SNF services: Yes Overall status at discharge: patient is progressing back to baseline
[2021-06-01] MEDS: SENNOSIDES 1 TABLET PO SCH (20:23)
[2021-06-01] MEDS: ASPIRIN 81 MG TAB.CHEW PO SCH (20:24)
[2021-06-01] MEDS: BACLOFEN 10 MG TABLET PO SCH (20:24)
[2021-06-02] MEDS: 0.9 % SODIUM CHLORIDE 10 ML SYRINGE IV SCH ×4 (05:54→20:38)
[2021-06-02] MEDS: PIPERACILLIN SODIUM/TAZOBACTAM 3.375 GM in DEXTROSE 5% IN WATER 50 ML IV SCH ×4 (05:54→17:18)
--- NOTE | 2021-06-02 07:39 | Internal Med Progress Note ---
SUBJECTIVE Subjective Patient information: Note initiated : 06/02/21 at 7:38 am Service Date, if different from initiated Date: [] Patient: Bridgette Cuevas a 66 y/o F admitted on 05/27/21 for ulcer to coccyx, increased weakness. Chief Complaint: [] Interval history: History of present illness: Ms. Cuevas is a 66 year old F history of multiple sclerosis with associated bilateral lower extremity paralysis, chronically bedbound, presenting with sacral decubitus ulcer. Patient only had up to stage I sacral decubitus ulcer as per at the bedside until about 10 days ago when he noticed starting of skin breakdown. Patient denies any pain in her sacrum. Patient denies any fever or chills or swellings. Patient denies any change in her appetite. She was being brought her to the ER yesterday night for further evaluations. Vital signs at ED presentations were within normal limits. Labs significant for leukocytosis with WBC 13.4. Venous lactic acid 4.1. Serum sodium 130. Covid screen negative. 05/28: Afebrile overnight. Blood culture from 05/26 growing P mirabilis. Denies any sacral pain. Denies fever or chills. c/o general body weakness. Good appetite. 05/29 Patient scheduled for diverting colostomy today. No new complaints. Awaiting final blood cultures urine cultures and wound cultures. 05/30 Patient status post diverting ostomy. No overnight event or new complaints. 05/31 No new complaints. Electrolytes improved. Awaiting placement likely on Wednesday. We will also talk to Dr. Orlando at that time regarding the positive cultures for wound and blood. 06/01 Slept well. No overnight events. No new complaints. Likely placement tomorrow. 06/02 Patient sleeping but arousable. No overnight events. Awaiting placement. Also will discuss culture results with Dr. Orlando. Constitutional Vitals: Vital Signs Temp Pulse Resp BP Pulse Ox 97.2 F 103 H 18 120/76 97 06/02/21 04:00 06/02/21 04:00 06/02/21 04:00 06/02/21 04:00 06/02/21 04:00 Period Temp Pulse Resp BP Sys/Jeter Pulse Ox Last 24 Hr 97.2 F-99.0 F 82-110 16-20 101-129/54-77 93-97 Intake and Output 06/01/21 06/02/21 06/02/21 21:59 05:59 13:59 Intake Total 530 170 Output Total 2200 800 Balance -1670 -630 Weight 93.077 kg Intake & Output: Intake & Output 06/01/21 06/02/21 06/02/21 21:59 05:59 13:59 Intake Total 530 170 Output Total 2200 800 Balance -1670 -630 Weight 93.077 kg Intake: IV 50 50 Zosyn 3.375 gm In Dextrose 5% 50 50 in Water 50 ml @ 100 mls/hr IV Q6H [facility] Rx#:[id number] Oral 480 120 Output: Urine Catheter Amount 2200 800 Other: Meal Dinner Percent of Meal Consumed 50% Feeding Ability Total Assistance Urine Appearance Clear Clear Uretheral (Barba) Clear Urine Color Bright Yellow Bright Yellow Uretheral (Barba) Bright Yellow Stool Size Large Stool Color Brown Stool Consistency Soft # Bowel Movements 1 Exam: General: Awake, No acute Distress, obese Eyes/N/T: EOMI, Head/Neck: neck supple, CV: RRR, No murmurs, Pulm: Clear b/l, no wheezing/rhonchi/rales Abd: soft, nontender, +BS x4 Ext: no clubbing/cyanosis/edema Neuro: Alert, LE paraplegia Skin: warm/dry OBJ DATA Labs CBC & Chem 7: 05/28/21 05:34 05/31/21 05:17 Labs: Abnormal Lab Results 05/31/21 05/31/21 05:17 05:17 Anion Gap 6.0 L Glucose 121 H Calcium 8.5 L Phosphorus 2.2 L Meds: Medications Acetaminophen (Acetaminophen 325 Mg Tablet) 650 mg PO Q6HP PRN; Protocol PRN Reason: Per Pain Protocol/Fever > 101 Last Admin: 05/31/21 19:24 Dose: 650 mg Documented by: Ascorbic Acid (Ascorbic Acid 500 Mg Tablet) 500 mg PO BID [facility] Last Admin: 06/01/21 20:24 Dose: 500 mg Documented by: Aspirin (Aspirin 81 Mg Tab.Chew) 81 mg PO QHS [facility] Last Admin: 06/01/21 20:24 Dose: 81 mg Documented by: Baclofen (Baclofen 10 Mg Tablet) 10 mg PO QHS [facility] Last Admin: 10/03/21 20:24 Dose: 10 mg Documented by: Docusate Sodium (Docusate Sodium 100 Mg Capsule) 100 mg PO BID [facility] Last Admin: 06/01/21 20:24 Dose: 100 mg Documented by: Gabapentin (Gabapentin 300 Mg Capsule) 600 mg PO DAILY [facility] Last Admin: 06/01/21 08:48 Dose: 600 mg Documented by: Gabapentin (Gabapentin 300 Mg Capsule) 900 mg PO HS [facility] Last Admin: 06/01/21 20:23 Dose: 900 mg Documented by: Heparin Sodium (Porcine) (Heparin 5,000 Unit/Ml Vial) 5,000 unit SQ Q12 [facility] Last Admin: 06/01/21 20:25 Dose: 5,000 unit Documented by: Piperacillin Sod/Tazobactam (Sod 3.375 gm/ Dextrose) 50 mls @ 100 mls/hr IV Q6H [facility]; Protocol Last Admin: 06/02/21 05:54 Dose: 100 mls/hr Documented by: Gentamicin Sulfate 40 mg/Clindamycin Phosphate 300 mg/Sodium Chloride 503 mls @ 0 mls/hr IRR Q12 [facility] Last Admin: 06/01/21 20:26 Dose: 1 mls/hr Documented by: Morphine Sulfate (Morphine 4 Mg/Ml Vial) 4 mg IV Q4HP PRN; Protocol PRN Reason: Per Pain Protocol Ondansetron HCl (Ondansetron 4 Mg/2 Ml Vial) 4 mg IV Q6HP PRN PRN Reason: Nausea And Vomiting Oxandrolone (Oxandrolone 10 Mg Tablet) 5 mg PO BIDCC [facility] Last Admin: 06/01/21 17:22 Dose: 5 mg Documented by: Oxycodone HCl (Oxycodone Hcl 5 Mg Tablet) 5 mg PO Q4HP PRN; Protocol PRN Reason: Per Pain Protocol Oxcarbazepine 150 Mg (Tablet) 1 dose PO BID [facility] Last Admin: 06/01/21 20:25 Dose: 1 dose Documented by: Methenamine Hippurate 1 Gm Tablet 1 dose PO BID [facility] Last Admin: 06/01/21 20:25 Dose: 1 dose Documented by: Senna (Sennosides 1 Tablet) 2 tab PO [facility] Last Admin: 06/01/21 20:23 Dose: 2 tab Documented by: Sodium Chloride (0.9 % Sodium Chloride 10 Ml Syringe) 10 ml IV Q8 [facility] Last Admin: 06/02/21 05:54 Dose: 10 ml Documented by: Zolpidem Tartrate (Zolpidem 5 Mg Tablet) 5 mg PO HSP PRN PRN Reason: Insomnia ABG Interpretation ABG results: 05/26/21 20:12 ABG Methemoglobin 0.3 L VBG pH 7.36 VBG pCO2 42.0 VBG pO2 25.5 VBG HCO3 22.9 L VBG Total CO2 24.2 L VBG O2 Saturation 37.5 L VBG Base Excess -3 L A/P Narrative A/P Narrative: A: #Stage IV sacral decubitus ulcer w/Infection (Proteus): s/p diverting colostomy (05/29) by Dr. Peña -PCT/leukocytosis improved #Bacteremia(Proteus/Bacteroides): repeat BC neg #UTI(Proteus/Enterobacter): #h/o multiple sclerosis w/paraplegia and bedbound: #Hyponatremia, mild: improved #Hypokalemia/Hypophos: improved #Chr Pain + h/o trigeminal Neuralgia: on Oxcarbazepine #Obese: P: -Zosyn -Dr. Bryant following -d/w Dr. Orlando today -cont home Gabapentin / Baclofen, Oxycodone as needed moderate pain -pt/ot -CM for placement needs -ppx prophylaxis: Heparin Time Spent With Patient Time: Total time spent is greater than 50% in coordination of care (as document ed) at patient's floor/unit and/or counseling patient: QUALITY Stroke Symptom Onset Unknown: No
[2021-06-02] MEDS: Methenamine Hippurate 1 GM Tablet PO SCH ×2 (08:23→20:32)
[2021-06-02] MEDS: HEPARIN 5,000 UNIT/ML VIAL SQ SCH ×2 (08:24→20:45)
[2021-06-02] MEDS: OXANDROLONE 10 MG TABLET PO SCH ×2 (08:24→17:18)
[2021-06-02] MEDS: DOCUSATE SODIUM 100 MG CAPSULE PO SCH ×2 (08:26→20:35)
[2021-06-02] MEDS: ASCORBIC ACID 500 MG TABLET PO SCH ×2 (08:29→20:45)
[2021-06-02] MEDS: GABAPENTIN 300 MG CAPSULE PO SCH ×2 (08:29→20:34)
[2021-06-02] MEDS ORDERED: LEVOFLOXACIN 750 MG/150 ML BAG IV SCH (10:30)
[2021-06-02] MEDS ORDERED: metroNIDAZOLE 500 MG/100 ML BAG IV SCH (11:00)
--- NOTE | 2021-06-02 11:14 | General Surgery Progress Note ---
SUBJECTIVE Subjective Patient information: Note initiated : 06/02/21 at 11:07 am Service Date, if different from initiated Date: [] Patient: Bridgette Cuevas 66 y/o F admitted on 05/27/21 for ulcer to coccyx, increased weakness. Chief Complaint: [] Additional PMFSH (Level 3 Only): Patient seen along with Kim spool cleaner and Ostomy nurse and Prosper s/o CG. Patient is doing well. Had an uneventful night. Colostomy working well. Wound care ongoing. Constitutional Vitals: Vital Signs Temp Pulse Resp BP Pulse Ox 98.9 F 98 H 20 103/69 94 06/02/21 08:00 06/02/21 08:00 06/02/21 08:00 06/02/21 08:00 06/02/21 08:00 Period Temp Pulse Resp BP Sys/Jeter Pulse Ox Last 24 Hr 97.2 F-99.0 F 82-110 16-20 101-129/54-77 93-97 Intake and Output 06/01/21 06/02/21 06/02/21 21:59 05:59 13:59 Intake Total 530 170 50 Output Total 2200 800 Balance -1670 -630 50 Weight 205 lb 3.2 oz Intake & Output: Intake & Output 06/01/21 06/02/21 06/02/21 21:59 05:59 13:59 Intake Total 530 170 50 Output Total 2200 800 Balance -1670 -630 50 Weight 205 lb 3.2 oz Intake: IV 50 50 50 Zosyn 3.375 gm In Dextrose 5% 50 50 50 in Water 50 ml @ 100 mls/hr IV Q6H [facility] Rx#:[id number] Oral 480 120 Output: Urine Catheter Amount 2200 800 Other: Meal Dinner Percent of Meal Consumed 50% Feeding Ability Total Assistance Urine Appearance Clear Clear Uretheral (Barba) Clear Urine Color Bright Yellow Bright Yellow Uretheral (Barba) Bright Yellow Stool Size Large Stool Color Brown Stool Consistency Soft # Bowel Movements 1 Exam: AVSS. No changes MELLISA. Soft abdomen. Ostomy working well. Soft stool in bag. Sacral wound is Stage 4. Bone in wound base. [place] granulations. Would c/s. Polymicrobial [place]. Enteric, and Skin bacteria. A/P Narrative A/P Narrative: Assessment: Multiple Sclerosis Stage 4 Sacral PU. S/P diversion colostomy Barba catheter Malnutrition: Prealbumin 10 Plan: Local wound care ongoing. Off loading TAPS / GCB W/D Discharge arrangements pending. Time Spent With Patient Time: Total time spent is greater than 50% in coordination of care (as documented) at patient's floor/unit and/or counseling patient: Total time spent with greater than 50% in coordination of care (as documented) at patient's floor/unit and/or counseling patient:: 25 - 35 minutes
[2021-06-02] MEDS ORDERED: 0.9 % SODIUM CHLORIDE 10 ML SYRINGE IV PRN (11:24)
[2021-06-02] MEDS: GENTAMICIN SULFATE 40 MG, CLINDAMYCIN 300 MG in SODIUM CHLORIDE IRRIG SOLUTION 500 ML IRR SCH ×2 (11:28→20:39)
--- NOTE | 2021-06-02 17:20 | Infectious Disease Consult ---
HPI Data of Consult Patient: new to practice Consult date: 06/02/21 Requesting physician: Willis Leigh Primary Care Provider: Sen Paez PA-C Consult Narrative Chief complaint: denies pain Reason for consult: stage 4 decub ulcer History of present illness: Boubacar is a 66-year-old obese woman with bedbound MS. She was admitted into the hospital May 27 for sepsis associated with stage IV decubitus ulcer. She is postop day 4 from diverting colostomy. She is currently on Zosyn 3.375 g IV every 6 hours. She has a right midline in place. MRSA screen was negative on May 29. Blood cultures on May 26 were positive for Proteus, be fragile, and methicillin sensitive coag negative staph. Urine culture on May 27 grew Proteus resistant to nitrofurantoin and Enterobacter resistant to Unasyn and nitrofurantoin. She uses a diaper at home. Her Prosper is her caregiver. On May 27 the wound culture also grew Proteus. CT scan on May 27 showed ulcer overlying the Kocsis with gas present all the way down to the mid coccyx. 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 Prosper reports that the bedsore developed approximately 9 days prior to admission. He also reports that she has had mild bedsore previously managed by wound care in 2013 2014. No previous surgery required to manage previous decubitus ulcerations. Follow-up blood cultures May 28 -. Her T-max since admission has been 100.1 dated May 30 and June 01. She currently denies pain. Prosper is at bedside. cc:: CC: Myles Lal MD Constitutional Additional comments: General: She is laying in bed. No complaints of fevers. H EENT: No headache or sore throat. No neck complaints. Pulmonary: No cough or shortness of breath. Cardiac: No chest pain. GI: Colostomy present. No complaints of abdominal pain. Positive colostomy output. Extremities: She has minimal foot movement. PFSH PFSH All Active Problems (Updated 06/02/21 @ 17:32 by Clifton Orlando MD) Bacteremia due to Gram-negative bacteria (Acute) Decubitus ulcer of sacral region, stage 4 (Acute) Decubitus ulcer (Acute) Cellulitis of sacral region (Acute) Hyponatremia (Acute) Leukocytosis (Acute) Medicare annual wellness visit, initial (Acute) TIA (transient ischemic attack) (Acute) Trigeminal neuralgia (Chronic) History of tubal ligation (Chronic) S/P CHELSEY-BSO (Chronic) History of cholecystectomy (Chronic) Urinary tract infection (Chronic) Urinary incontinence (Chronic) Spasm of muscle (Chronic) Personal history of urinary tract infection (Chronic) Pain in limb (Chronic) Obesity (Chronic) Neurogenic bladder (Chronic) Multiple sclerosis (Chronic) Hyperlipidemia (Chronic) Hip fracture (Chronic) Fatigue (Chronic) Hypertonicity of bladder (Chronic) Medical History Fatigue Hip fracture 1996 Hyperlipidemia Hypertonicity of bladder Medicare annual wellness visit, initial Multiple sclerosis Neurogenic bladder 08/09/14 Obesity 09/27/13 Pain in limb Personal history of urinary tract infection Spasm of muscle Trigeminal neuralgia 05/09/2015 - Dr. Gualberto Peña Urinary incontinence Urinary tract infection Surgical History History of cholecystectomy 2004 History of tubal ligation 1994 S/P CHELSEY-BSO 1995 Family History Father Rheumatoid arthritis Essential hypertension Grandmother Diabetes mellitus Essential hypertension Malignant neoplasm of ovary Mother Essential hypertension Migraine Social History marital status: life partner occupational status: disabled alcohol intake frequency: holiday/special occasion only substance use type: does not use MEDS/ALLERGIES Home Medications and Allergies Home Medications Medication Instructions Recorded Confirmed Type aspirin 81 mg tablet,delayed 81 mg PO QHS tab 03/27/15 05/27/21 History release flaxseed 1,000 mg capsule 03/27/15 05/27/21 History ascorbate calcium (vitamin C) 500 500 mg PO BID #180 tab 02/13/21 05/27/21 Rx mg tablet methenamine hippurate 1 gram tablet 1 g PO BID #60 tab 02/13/21 05/27/21 Rx oxcarbazepine 150 mg PO BID 05/27/21 05/27/21 History Allergies Allergy/AdvReac Type Severity Reaction Status Date / Time Sulfa (Sulfonamide Allergy Unknown Unknown Verified 05/27/21 15:06 Antibiotics) adhesive tape AdvReac Unknown Unknown Verified 05/27/21 15:06 Physical Examination Vital Signs Vital signs: Temp Pulse Resp BP Pulse Ox 98.9 F 98 H 20 103/69 94 06/02/21 08:00 06/02/21 08:00 06/02/21 08:00 06/02/21 08:00 06/02/21 08:00 Additional Exam Additional exam: General: No acute distress laying in bed. No active coughing. Nontoxic appearing. HEENT: Mouth is dry. EOMI PERRL sclera anicteric. Neck is supple full. Lungs: Clear bilaterally. Heart: Regular rate and rhythm without murmur. Abdomen: Obese soft nontender positive bowel sounds no abdominal erythema. Positive left colostomy with stool output. Extremities: Minimal great toe movement. Sacral decubitus ulcer observed on photos today. Described as down to bone coccyx. Results Laboratory Findings CBC and BMP: 05/28/21 05:34 05/31/21 05:17 Abnormal lab findings: Abnormal Labs 05/26/21 05/26/21 05/26/21 20:12 20:12 20:12 WBC 13.4 H Hct 47.9 H MPV 10.8 H Neut % (Auto) 87.8 H Lymph % (Auto) 7.0 L Lymph # (Auto) 0.94 L Upton # (Auto) Absolute Neutrophils 11.74 H ABG Methemoglobin VBG HCO3 VBG Total CO2 VBG O2 Saturation VBG Base Excess VBG Lactic Acid 4.1 H* Carboxyhemoglobin Total Hemoglobin Sodium 130 L Potassium Chloride 90 L Carbon Dioxide 19 L Anion Gap 21.0 H BUN 27 H Creatinine Glucose 130 H Calcium Phosphorus GGT AST 33 H C-Reactive Protein Albumin Globulin 4.4 H Albumin/Globulin Ratio 0.8 L Prealbumin Triglycerides Procalcitonin 05/26/21 05/27/21 05/28/21 20:12 13:56 05:34 WBC Hct MPV 11.0 H Neut % (Auto) Lymph % (Auto) Lymph # (Auto) Upton # (Auto) 1.13 H Absolute Neutrophils ABG Methemoglobin 0.3 L VBG HCO3 22.9 L VBG Total CO2 24.2 L VBG O2 Saturation 37.5 L VBG Base Excess -3 L VBG Lactic Acid 2.3 H Carboxyhemoglobin 4.1 H Total Hemoglobin 15.2 H Sodium Potassium Chloride Carbon Dioxide Anion Gap BUN Creatinine Glucose Calcium Phosphorus GGT AST C-Reactive Protein Albumin Globulin Albumin/Globulin Ratio Prealbumin Triglycerides Procalcitonin 05/28/21 05/28/21 05/28/21 05:34 05:34 05:34 WBC Hct MPV Neut % (Auto) Lymph % (Auto) Lymph # (Auto) Upton # (Auto) Absolute Neutrophils ABG Methemoglobin VBG HCO3 VBG Total CO2 VBG O2 Saturation VBG Base Excess VBG Lactic Acid Carboxyhemoglobin Total Hemoglobin Sodium Potassium 3.2 L Chloride Carbon Dioxide 16 L Anion Gap 22.0 H BUN Creatinine Glucose 108 H Calcium Phosphorus GGT AST C-Reactive Protein 8.60 H Albumin 2.7 L Globulin 3.9 H Albumin/Globulin Ratio 0.7 L Prealbumin 10.0 L Triglycerides Procalcitonin 2.11 H 05/29/21 05/29/21 05/30/21 05:13 05:13 05:23 WBC Hct MPV Neut % (Auto) Lymph % (Auto) Lymph # (Auto) Upton # (Auto) Absolute Neutrophils ABG Methemoglobin VBG HCO3 VBG Total CO2 VBG O2 Saturation VBG Base Excess VBG Lactic Acid Carboxyhemoglobin Total Hemoglobin Sodium 132 L Potassium 2.7 L* Chloride Carbon Dioxide 19 L 21 L Anion Gap BUN Creatinine 0.5 L Glucose 135 H 159 H Calcium 8.3 L 8.0 L Phosphorus 2.1 L 1.7 L GGT 38 H 37 H AST C-Reactive Protein 5.80 H Albumin 2.5 L 2.4 L Globulin Albumin/Globulin Ratio 0.7 L 0.7 L Prealbumin Triglycerides 220 H 162 H Procalcitonin 1.16 H 05/31/21 05/31/21 05:17 05:17 WBC Hct MPV Neut % (Auto) Lymph % (Auto) Lymph # (Auto) Upton # (Auto) Absolute Neutrophils ABG Methemoglobin VBG HCO3 VBG Total CO2 VBG O2 Saturation VBG Base Excess VBG Lactic Acid Carboxyhemoglobin Total Hemoglobin Sodium Potassium Chloride Carbon Dioxide Anion Gap 6.0 L BUN Creatinine Glucose 121 H Calcium 8.5 L Phosphorus 2.2 L GGT AST C-Reactive Protein Albumin Globulin Albumin/Globulin Ratio Prealbumin Triglycerides Procalcitonin Microbiology: Microbiology 05/28/21 09:59 Blood Blood Culture - Final 05/28/21 09:51 Blood Blood Culture - Final 05/26/21 20:21 Blood Blood Culture - Final 05/27/21 12:45 Decubitus - Other Gram Stain - Final 05/27/21 12:45 Decubitus - Other Wound Culture - Final Proteus mirabilis 05/26/21 20:12 Blood Blood Culture - Final Coagulase negative staph Bacteroides fragilis Proteus mirabilis#2 05/29/21 01:16 Nose MRSA (PCR) - Final 05/27/21 06:30 Urine - Clean Void Mid-Stream Urine Culture - Final Proteus mirabilis Enterobacter cloacae 05/27/21 13:31 Nasopharynx SARS-CoV-2 by PCR (OSMANY) - Final Cultures reviewed as above. All susceptible to Zosyn. A/P Assessment and plan (1) Decubitus ulcer of sacral region, stage 4: Status: Acute Comment: Boubacar is a 66-year-old obese bedbound MS patient who was admitted for sepsis on May 27. T-max 100.1 on May 30 and June 01. White count was 13.4 on admission. White blood cell count has improved. Surveillance blood cultures were negative on May 28. She is currently postop day 4 diverting colostomy for significan tly infected stage IV sacral decubitus ulcer with acute osteomyelitis of the coccyx. She is currently day 6 Zosyn from first negative blood culture. I am expecting 6 weeks of IV Zosyn. She will need a PICC line. (2) Bacteremia due to Gram-negative bacteria: Status: Acute Comment: Proteus from wound culture May 27 urine culture May 27 and positive blood culture from May 26. Follow-up blood cultures negative. Maintain Zosyn. (3) Urinary tract infection: Status: Chronic Comment: Urine culture was positive for both Proteus and Enterobacter. Qualifiers: Hematuria presence: with hematuria Urinary tract infection type: acute cystitis Qualified Code(s): N30.01 - Acute cystitis with hematuria (4) Obesity: Status: Chronic Comment: Malnutrition with prealbumin of 10. Qualifiers: Obesity type: due to excess calories Qualified Code(s): E66.09 - Other obesity due to excess calories (5) Multiple sclerosis: Status: Chronic Comment: No current treatment for MS. I have reviewed possibility of going to [facility] facility. She would rather go home. Evaluate with discharge planning to determine if Zosyn for 6 weeks will be covered under her insurance plan. She will need weekly labs CBC CMP sed rate and CRP. 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 This wound may not heal secondary to her comorbid risk factors. Discussed the possibility of future surgical debridement, possible coccygectomy, future muscle flap. Discussed the possibility of oral therapy to follow 6 weeks of IV therapy. Discussed nutritional status and pressure relief. High risk for poor wound healing and chronic wound with chronic antibiotic therapy. Time Spent With Patient Time: Total time spent is greater than 50% in coordination of care (as documented) at patient's floor/unit and/or counseling patient:
[2021-06-02] MEDS: ASPIRIN 81 MG TAB.CHEW PO SCH (20:35)
[2021-06-02] MEDS: BACLOFEN 10 MG TABLET PO SCH (20:35)
[2021-06-02] MEDS: SENNOSIDES 1 TABLET PO SCH (20:45)
[2021-06-03] MEDS: PIPERACILLIN SODIUM/TAZOBACTAM 3.375 GM in DEXTROSE 5% IN WATER 50 ML IV SCH ×4 (00:12→17:54)
[2021-06-03] MEDS: 0.9 % SODIUM CHLORIDE 10 ML SYRINGE IV SCH ×5 (05:52→22:35)
[2021-06-03] MEDS ORDERED: METOPROLOL TARTRATE 25 MG TABLET PO ONE (07:57)
--- NOTE | 2021-06-03 07:59 | Internal Med Progress Note ---
SUBJECTIVE Subjective Patient information: Note initiated : 06/03/21 at 7:57 am Service Date, if different from initiated Date: [] Patient: Bridgette Cuevas a 66 y/o F admitted on 05/27/21 for ulcer to coccyx, increased weakness. Chief Complaint: [] Interval history: History of present illness: Ms. Cuevas is a 66 year old F history of multiple sclerosis with associated bilateral lower extremity paralysis, chronically bedbound, presenting with sacral decubitus ulcer. Patient only had up to stage I sacral decubitus ulcer as per at the bedside until about 10 days ago when he noticed starting of skin breakdown. Patient denies any pain in her sacrum. Patient denies any fever or chills or swellings. Patient denies any change in her appetite. She was being brought her to the ER yesterday night for further evaluations. Vital signs at ED presentations were within normal limits. Labs significant for leukocytosis with WBC 13.4. Venous lactic acid 4.1. Serum sodium 130. Covid screen negative. 05/28: Afebrile overnight. Blood culture from 05/26 growing P mirabilis. Denies any sacral pain. Denies fever or chills. c/o general body weakness. Good appetite. 05/29 Patient scheduled for diverting colostomy today. No new complaints. Awaiting final blood cultures urine cultures and wound cultures. 05/30 Patient status post diverting ostomy. No overnight event or new complaints. 05/31 No new complaints. Electrolytes improved. Awaiting placement likely on Wednesday. We will also talk to Dr. Orlando at that time regarding the positive cultures for wound and blood. 06/01 Slept well. No overnight events. No new complaints. Likely placement tomorrow. 06/02 Patient sleeping but arousable. No overnight events. Awaiting placement. Also will discuss culture results with Dr. Orlando. 06/03 No overnight event or new complaints. Review of Systems: denies headache/fever/chills/nausea/vomiting/chest or abdominal pain/cou gh/dyspnea/diarrhea. Otherwise see above. Constitutional Vitals: Vital Signs Temp Pulse Resp BP Pulse Ox 96.8 F L 105 H 16 90/58 92 06/03/21 06:54 06/03/21 06:54 06/03/21 06:54 06/03/21 06:54 06/03/21 06:54 Period Temp Pulse Resp BP Sys/Jeter Pulse Ox Last 24 Hr 96.8 F-99.1 F 90-115 16-22 90-108/51-70 91-94 Intake and Output 06/02/21 06/03/21 06/03/21 21:59 05:59 13:59 Intake Total 50 170 50 Output Total 250 1375 Balance -200 -1205 50 Weight 101.196 kg Intake & Output: Intake & Output 06/02/21 06/03/21 06/03/21 21:59 05:59 13:59 Intake Total 50 170 50 Output Total 250 1375 Balance -200 -1205 50 Weight 101.196 kg Intake: IV 50 50 50 Zosyn 3.375 gm In Dextrose 5% 50 50 50 in Water 50 ml @ 100 mls/hr IV Q6H [facility] Rx#:[id number] Oral 120 Output: Urine Catheter Amount 1325 Void Amount 250 Stool 50 Other: Urine Appearance Sediment Clear Urine Color Dark Doris Bright Yellow Urine Odor Strong Stool Size Moderate Stool Color Brown Stool Consistency Formed Exam: General: Awake, No acute Distress, obese Eyes/N/T: EOMI, Head/Neck: neck supple, CV: RRR, No murmurs, Pulm: Clear b/l, no wheezing/rhonchi/rales Abd: soft, nontender, +BS x4 Ext: no clubbing/cyanosis/edema Neuro: Alert, LE paraplegia Skin: warm/dry OBJ DATA Labs CBC & Chem 7: 05/28/21 05:34 05/31/21 05:17 Meds: Medications Acetaminophen (Acetaminophen 325 Mg Tablet) 650 mg PO Q6HP PRN; Protocol PRN Reason: Per Pain Protocol/Fever > 101 Last Admin: 05/31/21 19:24 Dose: 650 mg Documented by: Ascorbic Acid (Ascorbic Acid 500 Mg Tablet) 500 mg PO BID [facility] Last Admin: 06/02/21 20:45 Dose: 500 mg Documented by: Aspirin (Aspirin 81 Mg Tab.Chew) 81 mg PO QHS [facility] Last Admin: 06/02/21 20:35 Dose: 81 mg Documented by: Baclofen (Baclofen 10 Mg Tablet) 10 mg PO QHS [facility] Last Admin: 06/02/21 20:35 Dose: 10 mg Documented by: Docusate Sodium (Docusate Sodium 100 Mg Capsule) 100 mg PO BID [facility] Last Admin: 06/02/21 20:35 Dose: 100 mg Documented by: Gabapentin (Gabapentin 300 Mg Capsule) 600 mg PO DAILY [facility] Last Admin: 06/02/21 08:29 Dose: 600 mg Documented by: Gabapentin (Gabapentin 300 Mg Capsule) 900 mg PO [facility] Last Admin: 06/02/21 20:34 Dose: 900 mg Documented by: Heparin Sodium (Porcine) (Heparin 5,000 Unit/Ml Vial) 5,000 unit SQ Q12 [facility] Last Admin: 06/02/21 20:45 Dose: 5,000 unit Documented by: Heparin Sodium (Porcine) (Heparin Flush 10 Units/Ml 5 Ml Syringe) 2 ml IV Q12 [facility] Last Admin: 06/02/21 20:35 Dose: Not Given Documented by: Gentamicin Sulfate 40 mg/Clindamycin Phosphate 300 mg/Sodium Chloride 503 mls @ 0 mls/hr IRR Q12 [facility] Last Admin: 06/02/21 20:39 Dose: 1 mls/hr Documented by: Piperacillin Sod/Tazobactam (Sod 3.375 gm/ Dextrose) 50 mls @ 100 mls/hr IV Q6H [facility]; Protocol Last Infusion: 06/03/21 06:27 Dose: Infused Documented by: Morphine Sulfate (Morphine 4 Mg/Ml Vial) 4 mg IV Q4HP PRN; Protocol PRN Reason: Per Pain Protocol Ondansetron HCl (Ondansetron 4 Mg/2 Ml Vial) 4 mg IV Q6HP PRN PRN Reason: Nausea And Vomiting Oxand[facility]one ([facility] 10 Mg [facility]t) [facility] Last Admin: 06/02/21 17:18 Dose: 5 mg Documented by: Oxycodone HCl (Oxycodone Hcl 5 Mg Tablet) 5 mg PO Q4HP PRN; Protocol PRN Reason: Per Pain Protocol Oxcarbazepine 150 Mg (Tablet) 1 dose PO BID [facility] Last Admin: 06/02/21 20:45 Dose: 1 dose Documented by: Methenamine Hippurate 1 Gm Tablet 1 dose PO BID [facility] Last Admin: 06/02/21 20:32 Dose: 1 dose Documented by: Senna (Sennosides 1 Tablet) 2 tab PO [facility] Last Admin: 06/02/21 20:45 Dose: 2 tab Documented by: Sodium Chloride (0.9 % Sodium Chloride 10 Ml Syringe) 10 ml IV Q8 [facility] Last Admin: 06/03/21 05:52 Dose: 10 ml Documented by: Sodium Chloride (0.9 % Sodium Chloride 10 Ml Syringe) 10 ml IV UD PRN PRN Reason: FLUSH Sodium Chloride (0.9 % Sodium Chloride 10 Ml Syringe) 10 ml IV Q12 [facility] Last Admin: 06/02/21 20:37 Dose: 10 ml Documented by: Zolpidem Tartrate (Zolpidem 5 Mg Tablet) 5 mg PO HSP PRN PRN Reason: Insomnia ABG Interpretation ABG results: 05/26/21 20:12 ABG Methemoglobin 0.3 L VBG pH 7.36 VBG pCO2 42.0 VBG pO2 25.5 VBG HCO3 22.9 L VBG Total CO2 24.2 L VBG O2 Saturation 37.5 L VBG Base Excess -3 L A/P Narrative A/P Narrative: A: #Stage IV sacral decubitus ulcer w/Infection (Proteus) & Osteo: s/p diverting colostomy (05/29) by Dr. Peña -PCT/leukocytosis improved #Bacteremia(Proteus/Bacteroides): repeat BC neg #UTI(Proteus/Enterobacter): #h/o multiple sclerosis w/paraplegia and bedbound: #Hyponatremia, mild: improved #Hypokalemia/Hypophos: improved #Chr Pain + h/o trigeminal Neuralgia: on Oxcarbazepine #Obese: P: -Zosyn for 6-weeks, PICC line ordered -Dr. Bryant following -Dr. Orlando following -cont home Gabapentin / Baclofen, Oxycodone as needed moderate pain -pt/ot -CM for placement needs -ppx: Heparin Time Spent With Patient Time: Total time spent is greater than 50% in coordination of care (as docume nted) at patient's floor/unit and/or counseling patient: QUALITY Stroke Symptom Onset Unknown: No
[2021-06-03] MEDS: OXANDROLONE 10 MG TABLET PO SCH ×2 (08:49→17:52)
[2021-06-03] MEDS: GABAPENTIN 300 MG CAPSULE PO SCH ×2 (08:51→22:22)
[2021-06-03] MEDS: ASCORBIC ACID 500 MG TABLET PO SCH ×2 (08:51→22:23)
[2021-06-03] MEDS: GENTAMICIN SULFATE 40 MG, CLINDAMYCIN 300 MG in SODIUM CHLORIDE IRRIG SOLUTION 500 ML IRR SCH ×2 (08:54→22:24)
[2021-06-03] MEDS: DOCUSATE SODIUM 100 MG CAPSULE PO SCH ×2 (08:54→22:22)
[2021-06-03] MEDS: Methenamine Hippurate 1 GM Tablet PO SCH ×2 (08:57→22:23)
[2021-06-03] MEDS: HEPARIN 5,000 UNIT/ML VIAL SQ SCH ×2 (09:12→22:22)
[2021-06-03] MEDS: ASPIRIN 81 MG TAB.CHEW PO SCH (22:23)
[2021-06-03] MEDS: BACLOFEN 10 MG TABLET PO SCH (22:23)
[2021-06-03] MEDS: SENNOSIDES 1 TABLET PO SCH (22:23)
[2021-06-04] MEDS: PIPERACILLIN SODIUM/TAZOBACTAM 3.375 GM in DEXTROSE 5% IN WATER 50 ML IV SCH ×3 (01:19→13:00)
[2021-06-04] MEDS: 0.9 % SODIUM CHLORIDE 10 ML SYRINGE IV SCH ×3 (06:10→14:03)
--- NOTE | 2021-06-04 08:03 | Internal Med Progress Note ---
SUBJECTIVE Subjective Patient information: Note initiated : 06/04/21 at 8:03 am Service Date, if different from initiated Date: [] Patient: Bridgette Cuevas a 66 y/o F admitted on 05/27/21 for ulcer to coccyx, increased weakness. Chief Complaint: [] Interval history: History of present illness: Ms. Cuevas is a 66 year old F history of multiple sclerosis with associated bilateral lower extremity paralysis, chronically bedbound, presenting with sacral decubitus ulcer. Patient only had up to stage I sacral decubitus ulcer as per at the bedside until about 10 days ago when he noticed starting of skin breakdown. Patient denies any pain in her sacrum. Patient denies any fever or chills or swellings. Patient denies any change in her appetite. She was being brought her to the ER yesterday night for further evaluations. Vital signs at ED presentations were within normal limits. Labs significant for leukocytosis with WBC 13.4. Venous lactic acid 4.1. Serum sodium 130. Covid screen negative. 05/28: Afebrile overnight. Blood culture from 05/26 growing P mirabilis. Denies any sacral pain. Denies fever or chills. c/o general body weakness. Good appetite. 05/29 Patient scheduled for diverting colostomy today. No new complaints. Awaiting final blood cultures urine cultures and wound cultures. 05/30 Patient status post diverting ostomy. No overnight event or new complaints. 05/31 No new complaints. Electrolytes improved. Awaiting placement likely on Wednesday. We will also talk to Dr. Orlando at that time regarding the positive cultures for wound and blood. 06/01 Slept well. No overnight events. No new complaints. Likely placement tomorrow. 06/02 Patient sleeping but arousable. No overnight events. Awaiting placement. Also will discuss culture results with Dr. Orlando. 06/03 No overnight event or new complaints. 06/04 No changes overnight. Awaiting placement. Review of Systems: denies headache/fever/chills/nausea/vomiting/chest or abdominal pain/cough/dyspnea/diarrhea. Otherwise see above. Constitutional Vitals: Vital Signs Temp Pulse Resp BP Pulse Ox 97.6 F 70 17 90/60 94 06/04/21 07:43 06/04/21 07:43 06/04/21 07:43 06/04/21 07:43 06/04/21 07:43 Period Temp Pulse Resp BP Sys/Jeter Pulse Ox Last 24 Hr 97.3 F-98.4 F 70-89 12-17 90-103/56-65 91-95 Intake and Output 06/03/21 06/04/21 06/04/21 21:59 05:59 13:59 Intake Total 410 50 50 Output Total 800 825 Balance -390 -775 50 Weight 101.378 kg Intake & Output: Intake & Output 06/03/21 06/04/21 06/04/21 21:59 05:59 13:59 Intake Total 410 50 50 Output Total 800 825 Balance -390 -775 50 Weight 101.378 kg Intake: Nourishment/Supplement quantity 120 (ml) IV 50 50 50 Zosyn 3.375 gm In Dextrose 5% 50 50 50 in Water 50 ml @ 100 mls/hr IV Q6H [facility] Rx#:[id number] Oral 240 0 Output: Urine Catheter Amount 500 625 Stool 300 200 Other: Meal Dinner Percent of Meal Consumed 100% Feeding Ability Independent Nourishment/Supplement name Ensure Anlive Urine Appearance Cloudy Clear Urine Color Straw Bright Yellow Straw Urine Odor Normal Stool Color Brown Stool Consistency Loose Soft Exam: General: Awake, No acute Distress, obese Eyes/N/T: EOMI, Head/Neck: neck supple, CV: RRR, No murmurs, Pulm: Clear b/l, no wheezing/rhonchi/rales Abd: soft, nontender, +BS x4 Ext: no clubbing/cyanosis/edema Neuro: Alert, LE paraplegia Skin: warm/dry OBJ DATA Labs CBC & Chem 7: 05/28/21 05:34 05/31/21 05:17 Meds: Medications Acetaminophen (Acetaminophen 325 Mg Tablet) 650 mg PO Q6HP PRN; Protocol PRN Reason: Per Pain Protocol/Fever > 101 Last Admin: 05/31/21 19:24 Dose: 650 mg Documented by: Ascorbic Acid (Ascorbic Acid 500 Mg Tablet) 500 mg PO BID [facility] Last Admin: 06/03/21 22:23 Dose: 500 mg Documented by: Aspirin (Aspirin 81 Mg Tab.Chew) 81 mg PO QHS [facility] Last Admin: 06/03/21 22:23 Dose: 81 mg Documented by: Baclofen (Baclofen 10 Mg Tablet) 10 mg PO QHS [facility] Last Admin: 06/03/21 22:23 Dose: 10 mg Documented by: Docusate Sodium (Docusate Sodium 100 Mg Capsule) 100 mg PO BID [facility] Last Admin: 06/03/21 22:22 Dose: 100 mg Documented by: Gabapentin (Gabapentin 300 Mg Capsule) 600 mg PO DAILY [facility] Last Admin: 06/03/21 08:51 Dose: 600 mg Documented by: Gabapentin (Gabapentin 300 Mg Capsule) 900 mg PO [facility] Last Admin: 06/03/21 22:22 Dose: 900 mg Documented by: Heparin Sodium (Porcine) (Heparin 5,000 Unit/Ml Vial) 5,000 unit SQ Q12 [facility] Last Admin: 06/03/21 22:22 Dose: 5,000 unit Documented by: Heparin Sodium (Porcine) (Heparin Flush 10 Units/Ml 5 Ml Syringe) 2 ml IV Q12 [facility] Last Admin: 06/03/21 20:25 Dose: Not Given Documented by: Gentamicin Sulfate 40 mg/Clindamycin Phosphate 300 mg/Sodium Chloride 503 mls @ 0 mls/hr IRR Q12 [facility] Last Admin: 06/03/21 22:24 Dose: 503 mls/hr Documented by: Piperacillin Sod/Tazobactam (Sod 3.375 gm/ Dextrose) 50 mls @ 100 mls/hr IV Q6H [facility]; Protocol Last Infusion: 06/04/21 06:10 Dose: Infused Documented by: Morphine Sulfate (Morphine 4 Mg/Ml Vial) 4 mg IV Q4HP PRN; Protocol PRN Reason: Per Pain Protocol Ondansetron HCl (Ondansetron 4 Mg/2 Ml Vial) 4 mg IV Q6HP PRN PRN Reason: Nausea And Vomiting Oxandrolone (Oxandrolone 10 Mg Tablet) 5 mg PO BIDCC [facility] Last Admin: 06/03/21 17:52 Dose: 5 mg Documented by: Oxycodone HCl (Oxycodone Hcl 5 Mg Tablet) 5 mg PO Q4HP PRN; Protocol PRN Reason: Per Pain Protocol Oxcarbazepine 150 Mg (Tablet) 1 dose PO BID [facility] Last Admin: 06/03/21 22:24 Dose: 1 dose Documented by: Methenamine Hippurate 1 Gm Tablet 1 dose PO BID [facility] Last Admin: 06/03/21 22:23 Dose: 1 dose Documented by: Senna (Sennosides 1 Tablet) 2 tab PO HS [facility] Last Admin: 06/03/21 22:23 Dose: 2 tab Documented by: Sodium Chloride (0.9 % Sodium Chloride 10 Ml Syringe) 10 ml IV Q8 [facility] Last Admin: 06/04/21 06:10 Dose: 10 ml Documented by: Sodium Chloride (0.9 % Sodium Chloride 10 Ml Syringe) 10 ml IV UD PRN PRN Reason: FLUSH Sodium Chloride (0.9 % Sodium Chloride 10 Ml Syringe) 10 ml IV Q12 [facility] Last Admin: 06/03/21 22:26 Dose: 10 ml Documented by: Zolpidem Tartrate (Zolpidem 5 Mg Tablet) 5 mg PO HSP PRN PRN Reason: Insomnia ABG Interpretation ABG results: 05/26/21 20:12 ABG Methemoglobin 0.3 L VBG pH 7.36 VBG pCO2 42.0 VBG pO2 25.5 VBG HCO3 22.9 L VBG Total CO2 24.2 L VBG O2 Saturation 37.5 L VBG Base Excess -3 L A/P Narrative A/P Narrative: A: #Stage IV sacral decubitus ulcer w/Infection (Proteus) & Osteo: s/p diverting co lostomy (05/29) by Dr. Peña -PCT/leukocytosis improved #Bacteremia(Proteus/Bacteroides): repeat BC neg #UTI(Proteus/Enterobacter): #h/o multiple sclerosis w/paraplegia and bedbound: #Hyponatremia, mild: improved #Hypokalemia/Hypophos: improved #Chr Pain + h/o trigeminal Neuralgia: on Oxcarbazepine #Obese: P: -Zosyn for 6-weeks, PICC line ordered -Dr. Bryant following -Dr. Orlando following -cont home Gabapentin / Baclofen, Oxycodone as needed moderate pain -pt/ot -CM for placement needs -ppx: Heparin Time Spent With Patient Time: Total time spent is greater than 50% in coordination of care (as documented) at patient's floor/unit and/or counseling patient: QUALITY Stroke Symptom Onset Unknown: No
[2021-06-04] MEDS: Methenamine Hippurate 1 GM Tablet PO SCH (09:43)
[2021-06-04] MEDS: OXANDROLONE 10 MG TABLET PO SCH (09:43)
[2021-06-04] MEDS: ASCORBIC ACID 500 MG TABLET PO SCH (09:44)
[2021-06-04] MEDS: GABAPENTIN 300 MG CAPSULE PO SCH (09:44)
[2021-06-04] MEDS: HEPARIN 5,000 UNIT/ML VIAL SQ SCH (09:45)
[2021-06-04] MEDS: GENTAMICIN SULFATE 40 MG, CLINDAMYCIN 300 MG in SODIUM CHLORIDE IRRIG SOLUTION 500 ML IRR SCH ×2 (09:46→10:17)
[2021-06-04] MEDS: DOCUSATE SODIUM 100 MG CAPSULE PO SCH (09:46)
--- NOTE | 2021-06-04 11:03 | Discharge Summary ---
Discharge Provider Provider Patient information: Note initiated : 06/04/21 at 11:00 am Service Date, if different from initiated Date: [] Patient: Bridgette Cuevas 66 y/o F admitted on 05/27/21 for ulcer to coccyx, increased weakness. Chief Complaint: [] Date of admission: 05/27/21 14:17 Discharge date: 06/04/21 Primary care physician: Sen Paez PA-C Consults: 05/27/21 Consult to Physician [CONS] Stat Comment: sacral ulcer Consulting Provider: Dax Bryant Reason For Exam: Physician to Consult 05/27/21 12:23 Consult to Physician [CONS] Stat Comment: Consulting Provider: Myles Lal Reason For Exam: Physician to Consult 05/27/21 15:28 Consult to Physician [CONS] Routine Comment: Surgery consult Consulting Provider: Jorge Peña Reason For Exam: Physician to Consult 06/02/21 11:16 Consult to Physician [CONS] Routine Comment: Consulting Provider: Clifton Orlando Reason For Exam: Physician to Consult Discharge Meds Discharge Medications Home Medications aspirin 81 mg tablet,delayed release 81 mg PO QHS tab 03/27/15 [History Confirmed 05/27/21 Last Taken 05/26/21 18:00] flaxseed 1,000 mg capsule 03/27/15 [History Confirmed 05/27/21 Last Taken 11/19/17 20:30] ascorbate calcium (vitamin C) 500 mg tablet 500 mg PO BID #180 tab 02/13/21 [Rx Confirmed 05/27/21 Last Taken 05/26/21 12:00] methenamine hippurate 1 gram tablet 1 g PO BID #60 tab 02/13/21 [Rx Confirmed 05/27/21 Last Taken 04/27/21] oxcarbazepine 150 mg PO BID 05/27/21 [History Confirmed 05/27/21 Last Taken Unknown] COURSE Hospital Course Hospital course: Interval history: History of present illness: Ms. Cuevas is a 66 year old F history of multiple sclerosis with associated bilateral lower extremity paralysis, chronically bedbound, presenting with sacral decubitus ulcer. Patient only had up to stage I sacral decubitus ulcer as per at the bedside until about 10 days ago when he noticed starting of skin breakdown. Patient denies any pain in her sacrum. Patient denies any fever or chills or swellings. Patient denies any change in her appetite. She was being brought her to the ER yesterday night for further evaluations. Vital signs at ED presentations were within normal limits. Labs significant for leukocytosis with WBC 13.4. Venous lactic acid 4.1. Serum sodium 130. Covid screen negative. 05/28: Afebrile overnight. Blood culture from 05/26 growing P mirabilis. Denies any sacral pain. Denies fever or chills. c/o general body weakness. Good appetite. 05/29 Patient scheduled for diverting colostomy today. No new complaints. Awaiting final blood cultures urine cultures and wound cultures. 05/30 Patient status post diverting ostomy. No overnight event or new complaints. 05/31 No new complaints. Electrolytes improved. Awaiting placement likely on Wednesday. We will also talk to Dr. Orlando at that time regarding the positive cultures for wound and blood. 06/01 Slept well. No overnight events. No new complaints. Likely placement tomorrow. 06/02 Patient sleeping but arousable. No overnight events. Awaiting placement. Also will discuss culture results with Dr. Orlando. 06/03 No overnight event or new complaints. 06/04 No changes overnight. Awaiting placement. 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 Peña #Bacteremia(Proteus/Bacteroides): repeat BC neg #UTI(Proteus/Enterobacter): #h/o multiple sclerosis w/paraplegia and bedbound: #Hyponatremia, mild: improved #Hypokalemia/Hypophos: improved #Chr Pain + h/o trigeminal Neuralgia: on Oxcarbazepine #Obese: 6-weeks of IV Zosyn per Dr. 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 Orlando office. PICC line care while IV antibiotics are scheduled. Prescriptions: Continued methenamine hippurate 1 gram tablet 1 g PO BID Qty: 60 RF: 11 ascorbate calcium (vitamin C) 500 mg tablet 500 mg PO BID Qty: 180 RF: 11 oxcarbazepine 150 mg tablet 150 mg PO BID RF: 0 aspirin 81 mg tablet,delayed release (DR/EC) 81 mg PO QHS RF: 0 (DME) flaxseed 1,000 mg capsule 1,000 mg .ROUTE .MEDSUPPLY RF: 0 Follow Up Plan Follow up with: Sen Paez PA-C [Primary Care Provider] - Dax Bryant MD [Physician] - oJrge Peña MD [Physician] - Clifton Orlando MD [Physician] - Disposition: Xfer As Swing Bed ([facility]) Prognosis: Fair Rehab Potential: Fair Overall status at discharge: patient is progressing back to baseline Discharge Orders: Discharge Order (Routine); Ordered 06/04/21 Ordered By: Willis Leigh
--- NOTE | 2021-06-04 14:22 | General Surgery Progress Note ---
SUBJECTIVE Subjective Patient information: Note initiated : 06/04/21 at 1:39 pm Service Date, if different from initiated Date: [] Patient: Bridgette Cuevas 66 y/o F admitted on 05/27/21 for ulcer to coccyx, increased weakness. Chief Complaint: [] Additional PMFSH (Level 3 Only): Patient seen on rounds with Moody De Leon RN. Progress reviewed with Dr. Leigh, Hospitalist Physician. Constitutional Vitals: Vital Signs Temp Pulse Resp BP Pulse Ox 97.7 F 50 L 17 98/62 94 06/04/21 11:38 06/04/21 11:38 06/04/21 11:38 06/04/21 11:38 06/04/21 11:38 Period Temp Pulse Resp BP Sys/Jeter Pulse Ox Last 24 Hr 97.3 F-98.4 F 50-89 12-17 90-119/56-74 93-95 Intake and Output 06/03/21 06/04/21 06/04/21 21:59 05:59 13:59 Intake Total 410 50 50 Output Total 800 825 Balance -390 -775 50 Weight 223 lb 8 oz Intake & Output: Intake & Output 06/03/21 06/04/21 06/04/21 21:59 05:59 13:59 Intake Total 410 50 50 Output Total 800 825 Balance -390 -775 50 Weight 223 lb 8 oz Intake: Nourishment/Supplement quantity 120 (ml) IV 50 50 50 Zosyn 3.375 gm In Dextrose 5% 50 50 50 in Water 50 ml @ 100 mls/hr IV Q6H [facility] Rx#:[id number] Oral 240 0 Output: Urine Catheter Amount 500 625 Stool 300 200 Other: Meal Dinner Breakfast Percent of Meal Consumed 100% 100% Feeding Ability Independent Independent Nourishment/Supplement name Ensure Anlive Urine Appearance Cloudy Clear Urine Color Straw Bright Yellow Straw Urine Odor Normal Stool Color Brown Stool Consistency Loose Soft Exam: AVSS, No interval changes in MELLISA. L/E: Soft abdomen, clean incisions. Functioning colostomy, Sacral wound Stage 4 PU Skin edge necroses < 5 MM (monitor ) Stage 2 perianal / buttock ulcer sites Dry / Healing well. A/P Narrative A/P Narrative: Assessment: Satisfactory progress from wound care point of view. Patient in being discharged from Acute care AND Admitted to Swing Bed Unit. Plan: Will reassess all wounds in AM Bedside debridement of necrotic skin edges Sacral ulcer site. Rest of ongoing care to continue. Time Spent With Patient Time: Total time spent is greater than 50% in coordination of care (as documented) at patient's floor/unit and/or counseling patient: Total time spent with greater than 50% in coordination of care (as documented) at patient's floor/unit and/or counseling patient:: less than 15 minutes
== END 2021-06-04 11:04 | disposition swing bed (61) | DRG 982 ==
LOC: ED 18:20 → MEDSUR 05-27 14:17
PROVIDERS: ADMIT Internal Medicine; ATTEND Internal Medicine

== ENCOUNTER 2022-08-10 10:59 | Inpatient (IN) ==
--- NOTE | 2022-08-10 11:19 | Emergency Department Note ---
HPI General Chief complaint: Weakness Stated complaint: fever, tachycardic, decreased urine output Time Seen by Provider: 08/10/22 11:15 Source: patient, family and EMS Mode of arrival: EMS Limitations: no limitations History of Present Illness HPI Narrative: Narrative: This 67-year-old female with MS patient was brought in by her family with what sounds like a change from her normal in terms of her voice was garbled her right eye was droopy and she had not had any urine output for overnight. Her also stated that she seemed very shaky compared to usual. Patient is bedbound all the time has a stage IV decubitus in the sacral area she has an ostomy to divert stool away from this area and the indwelling catheter. She also had a previous TIA status post CHELSEY/BSO status post cholecystectomy. Related Data Home Medications Medication Instructions Recorded Confirmed aspirin 81 mg tablet,delayed 81 mg PO QHS 03/27/15 10/11/21 release apixaban 5 mg tablet 5 mg PO BID 08/13/21 10/11/21 bisacodyl 10 mg rectal suppository 10 mg IA QDAY PRN Constipation 08/13/21 10/11/21 multivitamin [Super Multivitamin] 1 tab PO DAILY 08/13/21 10/11/21 polyethylene glycol 3350 17 17 g PO QDAY PRN Constipation 08/13/21 10/11/21 gram/dose oral powder (Miralax) acetic acid 0.25 % irrigation 1 irrig irrigation 2-3XW PRN 08/21/21 10/11/21 solution Catheter Irrigation nutritional supplements 1 ea PO BID 08/21/21 10/11/21 oxcarbazepine 150 mg 300 mg PO HS 08/21/21 10/11/21 tablet,extended release 24 hr (Oxtellar XR) oxycodone 5 mg tablet 5 mg PO Q6H PRN Pain 08/21/21 10/11/21 sodium phosphates 19 gram-7 118 ml IA QDAY PRN Constipation 08/21/21 10/11/21 gram/118 mL enema (Fleet Enema) fluconazole 150 mg tablet 150 mg PO QDAY 09/04/21 10/11/21 cholecalciferol (vitamin D3) 125 125 mcg PO QDAY 10/11/21 10/11/21 mcg (5,000 unit) tablet (Vitamin D3) dexamethasone 6 mg tablet 6 mg PO QDAY 10/11/21 10/11/21 oxycodone 5 mg tablet 10 mg PO QDAY PRN Pain 10/11/21 10/11/21 potassium chloride 20 mEq 40 meq PO QDAY 10/11/21 10/11/21 tablet,extended release vitamin B12 2,500 mcg-folic acid 5,000 tab PO QDAY 10/11/21 10/11/21 400 mcg disintegrating tablet Previous Rx's Medication Instructions Recorded ascorbate calcium (vitamin C) 500 500 mg PO BID #180 tabs 02/13/21 mg tablet Allergies Allergy/AdvReac Type Severity Reaction Status Date / Time Sulfa (Sulfonamide Allergy Unknown Unknown Verified 10/11/21 12:05 Antibiotics) adhesive tape AdvReac Unknown Unknown Verified 10/11/21 12:05 Review of Systems ROS ROS Narrative: Narrative: All systems ED: reviewed and negative except as stated. [facility] Narrative Patient History Narrative: Narrative: Medical/Surgical/Family History All Active Problems (Updated 10/11/21 @ 19:26 by Liz Ramos PA-C) Weakness (Acute) AMS (altered mental status) (Acute) Acute dehydration (Acute) Colostomy status (Acute) UTI (urinary tract infection) (Acute) Influenza A (Acute) Urge urinary incontinence (Acute) History of creation of ostomy (Acute) Bacteremia due to Gram-negative bacteria (Acute) Decubitus ulcer of sacral region, stage 4 (Acute) Decubitus ulcer (Acute) Cellulitis of sacral region (Acute) Hyponatremia (Acute) Leukocytosis (Acute) Medicare annual wellness visit, initial (Acute) TIA (transient ischemic attack) (Acute) Trigeminal neuralgia (Chronic) History of tubal ligation (Chronic) S/P CHELSEY-BSO (Chronic) History of cholecystectomy (Chronic) Urinary tract infection (Chronic) Urinary incontinence (Chronic) Spasm of muscle (Chronic) Personal history of urinary tract infection (Chronic) Pain in limb (Chronic) Obesity (Chronic) Neurogenic bladder (Chronic) Multiple sclerosis (Chronic) Hyperlipidemia (Chronic) Hip fracture (Chronic) Fatigue (Chronic) Hypertonicity of bladder (Chronic) Medical History Fatigue Hip fracture 1996 Hyperlipidemia Hypertonicity of bladder Medicare annual wellness visit, initial Multiple sclerosis No current treatment for MS. I have reviewed possibility of going to half-way facility. She would rather go home. Evaluate with discharge planning to determine if Zosyn for 6 weeks will be covered under her insurance plan. She will need weekly labs CBC CMP sed rate and CRP. 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 This wound may not heal secondary to her comorbid risk factors. Discussed the possibility of future surgical debridement, possible coccygectomy, future muscle flap. Discussed the possibility of oral therapy to follow 6 weeks of IV therapy. Discussed nutritional status and pressure relief. High risk for poor wound healing and chronic wound with chronic antibiotic therapy. Neurogenic bladder 08/09/14 Obesity Malnutrition with prealbumin of 10. Pain in limb Personal history of urinary tract infection Spasm of muscle Trigeminal neuralgia 05/09/2015 - Dr. Gualberto Peña Urinary incontinence Urinary tract infection Urine culture was positive for both Proteus and Enterobacter. Surgical History History of cholecystectomy 2004 History of surgery 09/04/2021-skin flap closure of sacral ulcer History of tubal ligation 1993 S/P CHELSEY-BSO 1995 Family History Father Rheumatoid arthritis Essential hypertension Grandmother Diabetes mellitus Essential hypertension Malignant neoplasm of ovary Mother Essential hypertension Migraine Social History Smoking Status: Never smoker Alcohol Intake Frequency: holiday/special occasion only Substance Use: does not use Exam Narrative Narrative: Narrative: General: Alert oriented x3 interactive speaks cogently. Skin: Rosacea changes on the face and telangiectasia various parts of her abdomen. Otherwise skin breakdown (level 4) decubitus over the sacrum very low Rebel ulcer inflammation and the wound itself seems well cleaned out. Lungs: Clear to auscultation equal bilaterally without rales rhonchi or wheezes. CV: Regular rate and rhythm without murmurs clicks rubs or gallops abdomen: Decreased bowel sounds nontender no distention or rigidity no masses or hepatosplenomegaly. Ostomy in the left midline of the abdomen draining. Periphery: Contractures bilaterally in the knees. More so on the left than the right. Neuro: GCS equals 15 NIH stroke scale equals 13 patient unable to elevate legs.. Cranial nerves II through XII are grossly intact and there is no sensory deficit distally. Could not test motor strength in the left lower leg but the other 3 extremities have full strength. Pupils equal round reactive and accommodating extraocular movements are intact. General Limitations: no limitations Course Vital Signs Vital signs: Vital Signs Temperature 101.2 F H 08/10/22 11:12 Pulse Rate 122 H 08/10/22 11:12 Respiratory Rate 18 08/10/22 11:12 Blood Pressure 108/81 08/10/22 11:12 Pulse Oximetry (%) 95 08/10/22 11:12 Oxygen Delivery Method 08/10/22 11:12 Temperature 101.2 F H 08/10/22 11:12 Pulse Rate 122 H 08/10/22 11:12 Respiratory Rate 18 08/10/22 11:12 Blood Pressure 108/81 08/10/22 11:12 Pulse Oximetry (%) 95 08/10/22 11:12 Oxygen Delivery Method 08/10/22 11:12 MDM MDM Narrative Medical decision making narrative: Narrative: Patient's white count is 24,000 with a left shift she is in acute kidney injury with a creatinine of 3 compared to her last one from September which was normal her lactate is 2.6 with anion gap of 17 her BNP is 1148. Her urine looks infected, and she has a decubitus stage IV ulcer as the other possible cause. Sepsis Sepsis Identified: Yes Discharge Plan Patient/Caregiver Discharge Instructions Condition: Fair Follow up with: Christy Almeida MD [Primary Care Provider] - Prescriptions: No Action ascorbate calcium (vitamin C) 500 mg tablet 500 mg PO BID Qty: 180 11RF Rx Instructions: take 2 times a day with METHENAMINE apixaban 5 mg tablet 5 mg PO BID bisacodyl 10 mg suppository 10 mg IA QDAY PRN (Reason: Constipation) multivitamin [Super Multivitamin] 1 tab PO DAILY polyethylene glycol 3350 [Miralax] 17 gram/dose powder 17 g PO QDAY PRN (Reason: Constipation) nutritional supplements Powder 1 ea PO BID Fleet Enema 19-7 gram/118 mL Enema 118 ml IA QDAY PRN (Reason: Constipation) acetic acid 0.25 % Solution 1 irrig IRRIGATION 2-3XW PRN (Reason: Catheter Irrigation) Rx Instructions: for urinary catheter flush performed on Wed. and Wed. oxycodone 5 mg Tablet 5 mg PO Q6H PRN (Reason: Pain) Rx Instructions: Prior to dressing changes Oxtellar XR 150 mg Tablet Extended Release 24 Hr 300 mg PO HS Rx Instructions: must be taken on empty stomach; no food at least 2 hrs before or 1 hr after dose fluconazole 150 mg Tablet 150 mg PO QDAY Rx Instructions: For 7 Days started 08/28/2021 oxycodone 5 mg tablet 10 mg PO QDAY PRN (Reason: Pain) dexamethasone 6 mg Tablet 6 mg PO QDAY cholecalciferol (vitamin D3) [Vitamin D3] 125 mcg (5,000 unit) Tablet 125 mcg PO QDAY potassium chloride 20 mEq Tablet Extended Release 40 meq PO QDAY vitamin B67-gjhhg acid 2,500-400 mcg Tablet,Disintegrating 5,000 tab PO QDAY aspirin 81 mg tablet,delayed release (DR/EC) 81 mg PO QHS
[2022-08-10 11:44] LABS: POC Calcium, Ionized 1.1 (1.16-1.32); POC Creatinine 3.2 (0.6-1.2); POC Potassium 5.1 (3.3-5.1)
--- NOTE | 2022-08-10 11:52 | XRay Report ---
CLINICAL INFORMATION: Weakness COMPARISON: 10/11/2021 TECHNIQUE: Portable FINDINGS: The heart size, mediastinum and pulmonary vessels are unremarkable. The lungs are clear. There are no effusions. The bones and soft tissues are within normal limits. IMPRESSION: Normal chest. Interpreted and Authenticated by: Haroon Mckeno 08/10/22
[2022-08-10] MEDS ORDERED: 0.9 % SODIUM CHLORIDE 1,000 ML IV ONE (11:55)
[2022-08-10] MEDS ORDERED: LEVOFLOXACIN 750 MG/150 ML BAG IV ONE (12:10)
[2022-08-10] MEDS ORDERED: metroNIDAZOLE 500 MG/100 ML BAG IV ONE (12:10)
--- NOTE | 2022-08-10 12:44 | Cat Scan Report ---
CLINICAL INFORMATION: Altered mental status COMPARISON: 10/11/2021 TECHNIQUE: 2.5 mm helical slices were obtained in the skull base to vertex. Following reconstruction, axial reformatted images were reviewed at bone and parenchymal windows. The exam was performed using radiation dose optimization techniques including, but not limited to, automated exposure control, adjustment of the mA and/or kV according to patient size and use of iterative reconstruction technique. FINDINGS: The ventricles, sulci, fissures, and cisterns are symmetrically enlarged compatible with mild age-related atrophy. No extra-axial fluid collections are identified. Mild patchy chronic ischemic changes, in the deep cerebral white matter, are expected for age. There is no hemorrhage, mass effect, or edema. Bone windows show no osseous abnormality. IMPRESSION: Mild atrophy and chronic ischemic changes in the deep cerebral white more than expected for age but stable. No acute findings Moderate acute sphenoid sinusitis moderate air-fluid level Interpreted and Authenticated by: Haroon Mckeon 08/10/22
[2022-08-10 12:47] LABS: Basophils # (Auto) 0.13 K/mcL (0.00-0.30); Basophils % (Auto) 0.5 % (0.0-2.0); Eosinophils # (Auto) 0.03 K/mcL (0.00-0.70); Eosinophils % (Auto) 0.1 % (0.0-7.0); Hematocrit 46.2 % (34.1-44.9); Hemoglobin 15.3 g/dL (11.2-15.7); Lymphocytes # (Auto) 1.91 K/mcL (1.50-4.80); Mean Cell Volume 91.3 fL (80.0-100.0); Mean Corpuscular HGB Conc 33.1 g/dL (31.0-36.0); Mean Platelet Volume 10.5 fL (8.8-12.5); Monocytes # (Auto) 2.01 K/mcL (0.10-0.90); Monocytes % (Auto) 8.4 % (1.0-12.0); Neutrophils % (Auto) 82.6 % (38.0-78.0); Platelet Count 459 K/mcL (140-440); RBC 5.06 M/mcL (3.59-5.38); Red Cell Distribution Width 17.3 % (11.5-14.5); WBC 23.8 K/mcL (4.5-11.0)
[2022-08-10 13:15] LABS: ALT/SGPT 35 U/L (<40); AST/SGOT 50 U/L (<32); Albumin 3.1 gm/dL (3.2-5.2); Albumin/Globulin Ratio 0.8 (1.0-2.3); Alkaline Phosphatase 140 U/L (39-117); Bilirubin,Total 0.6 mg/dL (0.1-1.0); Blood Urea Nitrogen 31 mg/dL (8-23); Calcium 9.2 mg/dL (8.6-10.4); Carbon Dioxide 20 mmol/L (22-30); Chloride 104 mmol/L (96-108); Globulin 3.7 gm/dL (2.2-3.7); Glomerular Filtration Rate 15; Glucose 133 mg/dL (70-105)
--- NOTE | 2022-08-10 13:55 | Internal Med History&Physical ---
HPI History of Present Illness Patient information: Note initiated : 08/10/22 at 1:38 pm Service Date, if different from initiated Date: [] Patient: Bridgette Cuevas a 67 y/o F admitted on for fever, tachycardic, decreased urine output. Chief Complaint: [] History of present illness: Ms. Cuevas is a 67 year old F Brought into the ED for weakness decreased level of consciousness. She lives at home with family. She was recently taken off hospice because she was doing well. And her sacral decubitus wound was improving. However she is also developed decreased level conscious with past couple days weakness decreased urine output. Family says her urine which always looks dirty as dirty or than usual. Patient denies fever chills. She was tachycardic when she came in she was febrile at 102. Leukocytosis. Had acute kidney injury with a creatinine 3 0 CRP of 18 a lactate of 2.6. Blood pressure fluctuating systolic between the 90s and 100s. Has a chronic indwelling catheter for chronic wounds multiple sclerosis likely neurogenic bladder. Looks like she is on Bactrim for chronic UTIs. She is also on Eliquis the family says because she is bedbound and did not report any history of DVTs or atrial fibrillation. Review of Systems: Pertinent positives as above. Denies headache/fever/chills/nausea/vomiting/chest or abdominal pain/cough/dyspnea/diarrhea. Remaining 10 point review of system reviewed negative PFSH PFSH All Active Problems (Updated 08/10/22 @ 13:27 by Shayne Winchester MD) Sepsis (Acute) Weakness (Acute) AMS (altered mental status) (Acute) Acute dehydration (Acute) Colostomy status (Acute) UTI (urinary tract infection) (Acute) Influenza A (Acute) Urge urinary incontinence (Acute) History of creation of ostomy (Acute) Bacteremia due to Gram-negative bacteria (Acute) Decubitus ulcer of sacral region, stage 4 (Acute) Decubitus ulcer (Acute) Cellulitis of sacral region (Acute) Hyponatremia (Acute) Leukocytosis (Acute) Medicare annual wellness visit, initial (Acute) TIA (transient ischemic attack) (Acute) Trigeminal neuralgia (Chronic) History of tubal ligation (Chronic) S/P CHELSEY-BSO (Chronic) History of cholecystectomy (Chronic) Urinary tract infection (Chronic) Urinary incontinence (Chronic) Spasm of muscle (Chronic) Personal history of urinary tract infection (Chronic) Pain in limb (Chronic) Obesity (Chronic) Neurogenic bladder (Chronic) Multiple sclerosis (Chronic) Hyperlipidemia (Chronic) Hip fracture (Chronic) Fatigue (Chronic) Hypertonicity of bladder (Chronic) Medical History Fatigue Hip fracture 1996 Hyperlipidemia Hypertonicity of bladder Medicare annual wellness visit, initial Multiple sclerosis No current treatment for MS. I have reviewed possibility of going to alf facility. She would rather go home. Evaluate with discharge planning to determine if Zosyn for 6 weeks will be covered under her insurance plan. She will need weekly labs CBC CMP sed rate and CRP. 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 This wound may not heal secondary to her comorbid risk factors. Discussed the possibility of future surgical debridement, possible coccygectomy, future muscle flap. Discussed the possibility of oral therapy to follow 6 weeks of IV therapy. Discussed nutritional status and pressure relief. High risk for poor wound healing and chronic wound with chronic antibiotic therapy. Neurogenic bladder 08/09/14 Obesity Malnutrition with prealbumin of 10. Pain in limb Personal history of urinary tract infection Spasm of muscle Trigeminal neuralgia 05/09/2015 - Dr. Gualberto Peña Urinary incontinence Urinary tract infection Urine culture was positive for both Proteus and Enterobacter. Surgical History History of cholecystectomy 2004 History of surgery 09/04/2021-skin flap closure of sacral ulcer History of tubal ligation 1993 S/P CHELSEY-BSO 1995 Family History Father Rheumatoid arthritis Essential hypertension Grandmother Diabetes mellitus Essential hypertension Malignant neoplasm of ovary Mother Essential hypertension Migraine Social History marital status: life partner occupational status: disabled smoking status: Never smoker alcohol intake frequency: holiday/special occasion only substance use type: does not use MEDS/ALLERGIES Home Medications and Allergies Home Medications Medication Instructions Recorded Confirmed Type aspirin 81 mg tablet,delayed 81 mg PO QHS 03/27/15 10/11/21 History release ascorbate calcium (vitamin C) 500 500 mg PO BID #180 tabs 02/13/21 10/11/21 Rx mg tablet apixaban 5 mg tablet 5 mg PO BID 08/13/21 10/11/21 History bisacodyl 10 mg rectal suppository 10 mg OH QDAY PRN Constipation 08/13/21 10/11/21 History multivitamin [Super Multivitamin] 1 tab PO DAILY 08/13/21 10/11/21 History polyethylene glycol 3350 17 17 g PO QDAY PRN Constipation 08/13/21 10/11/21 History gram/dose oral powder (Miralax) acetic acid 0.25 % irrigation 1 irrig irrigation 2-3XW PRN 08/21/21 10/11/21 History solution Catheter Irrigation nutritional supplements 1 ea PO BID 08/21/21 10/11/21 History oxcarbazepine 150 mg 300 mg PO HS 08/21/21 10/11/21 History tablet,extended release 24 hr (Oxtellar XR) oxycodone 5 mg tablet 5 mg PO Q6H PRN Pain 08/21/21 10/11/21 History sodium phosphates 19 gram-7 118 ml OH QDAY PRN Constipation 08/21/21 10/11/21 History gram/118 mL enema (Fleet Enema) fluconazole 150 mg tablet 150 mg PO QDAY 09/04/21 10/11/21 History cholecalciferol (vitamin D3) 125 125 mcg PO QDAY 10/11/21 10/11/21 History mcg (5,000 unit) tablet (Vitamin D3) dexamethasone 6 mg tablet 6 mg PO QDAY 10/11/21 10/11/21 History oxycodone 5 mg tablet 10 mg PO QDAY PRN Pain 10/11/21 10/11/21 History potassium chloride 20 mEq 40 meq PO QDAY 10/11/21 10/11/21 History tablet,extended release vitamin B12 2,500 mcg-folic acid 5,000 tab PO QDAY 10/11/21 10/11/21 History 400 mcg disintegrating tablet Allergies Allergy/AdvReac Type Severity Reaction Status Date / Time Sulfa (Sulfonamide Allergy Unknown Unknown Verified 10/11/21 12:05 Antibiotics) adhesive tape AdvReac Unknown Unknown Verified 10/11/21 12:05 EXAM Constitutional Vitals: Temp Pulse Resp BP Pulse Ox O2 Del Method 101.2 F H 102 H 15 144/126 94 08/10/22 11:12 08/10/22 13:02 08/10/22 13:02 08/10/22 13:02 08/10/22 13:02 08/10/22 11:12 Exam: General: Alert, Awake, No acute Distress Eyes/N/T: EOMI, PERRL, dry MM Head/Neck: neck supple, normocephalic atraumatic CV: RRR, No murmurs, normal s1/s2 Pulm: Clear b/l, no wheezing/rhonchi/rales Abd: soft, nontender, +BS x4 Ext: no clubbing/cyanosis/edema Back: Large decubitus sacral ulcer : Barba in place with severely cloudy urine, Barba replaced in ED Neuro: Alert, no focal deficits, moves all extremities, CN 2-12 grossly intact, Skin: warm/dry DATA Data Completed and Pending Labs: Labs from last 24 hours 08/10/22 08/10/22 08/10/22 12:01 12:00 12:00 WBC 23.8 H RBC 5.06 Hgb 15.3 Hct 46.2 H POC Hct MCV 91.3 MCH 30.2 MCHC 33.1 RDW 17.3 H Plt Count 459 H MPV 10.5 Immature Gran % (Auto) 0.4 Neut % (Auto) 82.6 H Lymph % (Auto) 8.0 L [place] % (Auto) 8.4 Eos % (Auto) 0.1 Baso % (Auto) 0.5 Lymph # (Auto) 1.91 Duval # (Auto) 2.01 H Eos # (Auto) 0.03 Baso # (Auto) 0.13 Immature Gran # 0.10 H Absolute Neutrophils 19.65 H D-Dimer 0.89 H POC VBG pH POC VBG pCO2 at Temp POC VBG pO2 POC VBG HCO3 POC VBG Total CO2 POC Venous O2 Sat POC VBG Base Excess VBG Lactic Acid POC Sodium Sodium 141 POC Potassium Potassium 5.1 POC Chloride Chloride 104 Carbon Dioxide 20 L POC Total CO2 Anion Gap 17.0 H POC BUN BUN 31 H Creatinine 3.0 H POC Creatinine GFR Calculation 15 Glucose 133 H POC Glucose Calcium 9.2 POC WB Ioniz Calcium Total Bilirubin 0.6 AST 50 H ALT 35 Alkaline Phosphatase 140 H C-Reactive Protein 8.00 H NT-Pro-B Natriuret Pep 1148.0 H Total Protein 6.8 Albumin 3.1 L Globulin 3.7 Albumin/Globulin Ratio 0.8 L POC Troponin I 08/10/22 08/10/22 08/10/22 11:47 11:41 11:39 WBC RBC Hgb Hct POC Hct 49.0 H MCV MCH MCHC RDW Plt Count MPV Immature Gran % (Auto) Neut % (Auto) Lymph % (Auto) Duval % (Auto) Eos % (Auto) Baso % (Auto) Lymph # (Auto) Duval # (Auto) Eos # (Auto) Baso # (Auto) Immature Gran # Absolute Neutrophils D-Dimer POC VBG pH 7.44 H POC VBG pCO2 at Temp 30.2 L POC VBG pO2 63 H POC VBG HCO3 20.3 L POC VBG Total CO2 21.0 L POC Venous O2 Sat 93.0 H POC VBG Base Excess -4.0 L VBG Lactic Acid 2.6 H POC Sodium 140 Sodium POC Potassium 5.1 Potassium POC Chloride 109 H Chloride Carbon Dioxide POC Total CO2 20.0 L Anion Gap POC BUN 35 H BUN Creatinine POC Creatinine 3.2 H GFR Calculation Glucose POC Glucose 139 H Calcium POC WB Ioniz Calcium 1.10 L Total Bilirubin AST ALT Alkaline Phosphatase C-Reactive Protein NT-Pro-B Natriuret Pep Total Protein Albumin Globulin Albumin/Globulin Ratio POC Troponin I < 0.02 A/P Narrative A/P Narrative: A: *Sepsis: Source likely versus chronic sacral decubitus ulcer *Hyperlactatemia: *UTI: *Large sacral decubitus ulcer w/diverting colostomy: -Patient recently taken off hospice because she was doing better including her ulcer healing *LOS w/volume depletion: 2/2 above *h/o multiple sclerosis w/paraplegia: *Neurogenic bladder: Chronic Barba *Poor functional status: Patient is bedbound *Chr Pain + h/o trigeminal Neuralgia: on Oxcarbazepine *Goals of care: Patient recently taken off hospice because of improvement P: -Empiric antibiotics, pending BC/UC/WC -IVF -f/u lactate -Follow-up renal function, uop -f/u chemistry/cbc -Wound care team -Chronic pain medications -Home medication reconciliation -PT/OT -CM for placement needs -ppx: home apixaban Time Spent With Patient Time: Total time spent is greater than 50% in coordination of care (as documented) at patient's floor/unit and/or counseling patient: Total time spent with greater than 50% in coordination of care (as documented) at patient's floor/unit and/or counseling patient:: Greater than 70 minutes
[2022-08-10] MEDS ORDERED: POLYETHYLENE GLYCOL 3350 17 GM PACKET PO PRN (14:57)
[2022-08-10] MEDS ORDERED: ONDANSETRON 4 MG/2 ML VIAL IV PRN (14:57)
[2022-08-10] MEDS ORDERED: SENNOSIDES 1 TABLET PO PRN (14:57)
[2022-08-10] MEDS ORDERED: MAGNESIUM SULFATE 2 GM/50 ML BAG IV PRN (14:57)
[2022-08-10] MEDS ORDERED: POTASSIUM CHLORIDE 40 MEQ in DEXTROSE 5% IN WATER 500 ML IV PRN (14:57)
[2022-08-10] MEDS ORDERED: ACETAMINOPHEN 325 MG TABLET PO PRN (14:57)
[2022-08-10] MEDS ORDERED: IPRATROPIUM/ALBUTEROL 3 ML AMPUL.NEB NEB PRN (14:57)
[2022-08-10] MEDS ORDERED: POTASSIUM CHLORIDE 20 MEQ TABLET PO PRN ×2 (14:57)
[2022-08-10 15:07] LABS: Appearance,Urine Turbid (Clear); Bacteria,Urine MANY /hpf (0); Bilirubin,Urine Negative (Negative); Color,Urine Yellow; Culture Indicated,Urine Yes; Glucose,Urine (UA) Negative (Negative); Ketones,Urine Negative (Negative); Leukocyte Esterase,Urine 3+(Large) /uL (Negative); Nitrate,Urine Positive (Negative); Protein,Urine 300(3+) mg/dL (Negative); Specific Gravity,Urine 1.005 (1.000-1.035); Urine Blood 3+(Large) ery/mcL (Negative); Urine RBC > 182 /hpf (0-1); Urine Squamous Epithelial Cell 13 /hpf (0-4); Urine WBC > 182 /hpf (0-4); Urobilinogen,Urine Negative
[2022-08-10] MEDS: PIPERACILLIN SODIUM/TAZOBACTAM 2.25 GM in DEXTROSE 5% IN WATER 50 ML IV SCH ×2 (15:14→19:19)
[2022-08-10] MEDS: 0.9 % SODIUM CHLORIDE 1,000 ML IV SCH (15:14)
[2022-08-10] MEDS ORDERED: MENTHOL/ZINC OXIDE OINT.TOP 113 GM TOPICAL PRN ×2 (16:32→16:45)
[2022-08-10] MEDS ORDERED: TOLTERODINE 2 MG CAP.XL.24H PO PRN (16:32)
[2022-08-10] MEDS ORDERED: LACTATED RINGERS 1,000 ML IV SCH (17:14)
[2022-08-10] MEDS: 0.9 % SODIUM CHLORIDE 10 ML SYRINGE IV SCH ×2 (18:01→22:00)
[2022-08-10] MEDS: morphine 15 MG TAB.SR.12H PO SCH (21:05)
[2022-08-10] MEDS: DOCUSATE SODIUM 100 MG CAPSULE PO SCH (21:05)
[2022-08-10] MEDS: APIXABAN 5 MG TABLET PO SCH (21:05)
[2022-08-10] MEDS: GABAPENTIN 300 MG CAPSULE PO SCH (21:06)
[2022-08-11] MEDS: PIPERACILLIN SODIUM/TAZOBACTAM 2.25 GM in DEXTROSE 5% IN WATER 50 ML IV SCH ×4 (00:12→17:46)
[2022-08-11] MEDS: 0.9 % SODIUM CHLORIDE 1,000 ML IV SCH ×2 (01:52→13:46)
[2022-08-11] MEDS: 0.9 % SODIUM CHLORIDE 10 ML SYRINGE IV SCH ×3 (06:21→22:00)
--- NOTE | 2022-08-11 07:46 | Internal Med Progress Note ---
SUBJECTIVE Subjective Patient information: Note initiated : 08/11/22 at 7:41 am Service Date, if different from initiated Date: [] Patient: Bridgette Cuevas a 67 y/o F admitted on 08/10/22 for fever, tachycardic, decreased urine output. Chief Complaint: [] Interval history: History of present illness: Ms. Cuevas is a 67 year old F Brought into the ED for weakness decreased level of consciousness. She lives at home with family. She was recently taken off hospice because she was doing well. And her sacral decubitus wound was improving. However she is also developed decreased level conscious with past couple days weakness decreased urine output. Family says her urine which always looks dirty as dirty or than usual. Patient denies fever chills. She was tachycardic when she came in she was febrile at 102. Leukocytosis. Had acute kidney injury with a creatinine 3 0 CRP of 18 a lactate of 2.6. Blood pressure fluctuating systolic between the 90s and 100s. Has a chronic indwelling catheter for chronic wounds multiple sclerosis likely neurogenic bladder. Looks like she is on Bactrim for chronic UTIs. She is also on Eliquis the family says because she is bedbound and did not report any history of DVTs or atrial fibrillation. 08/11 Patient hypotensive at times last night, as needed vasopressors ordered but not yet needed. Little better today. Lactic acidosis worsened and then improving today. Leukocytosis. Acute kidney injury creatinine slowly improving. Hypomagnesemia 1.3. Review of Systems: denies headache/fever/chills/nausea/vomiting/chest or abdominal pain/cough/dyspnea/diarrhea. Otherwise see above. Constitutional Vitals: Vital Signs Temp Pulse Resp BP Pulse Ox O2 Del Method O2 Flow Rate 98.2 F 79 11 L 80/50 96 0 08/11/22 04:00 08/11/22 06:04 08/11/22 06:04 08/11/22 06:04 08/11/22 06:04 08/11/22 06:04 08/11/22 04:00 Period Temp Pulse Resp BP Sys/Jeter Pulse Ox O2 Del Method O2 Flow Rate Last 24 Hr 97.6 F-101.2 F 72-122 10-23 58-146/40-126 90-100 Room Air-Room Air 0-0 Intake and Output 08/10/22 08/11/22 08/11/22 19:59 03:59 11:59 Intake Total 2990 1050 Output Total 450 Balance 2990 600 Weight 76.521 kg 76.521 kg Intake & Output: Intake & Output 08/10/22 08/11/22 08/11/22 19:59 03:59 11:59 Intake Total 2990 1050 Output Total 450 Balance 2990 600 Weight 76.521 kg 76.521 kg Intake: IV 2350 1050 Sodium Chloride 0.9% 1,000 ml @ 1000 1000 100 mls/hr IV .Q10H LOVE Rx#: [id number] Lactated Ringers 1,000 ml @ 1000 Wide Open IV BOLUS LOVE Rx#: [id number] Zosyn 2.25 gm In Dextrose 5% in 100 50 Water 50 ml @ 100 mls/hr IV Q6H OLVE Rx#:[id number] Oral 640 Output: Urine Catheter Amount 450 Other: Meal Dinner Percent of Meal Consumed 100% Feeding Ability Total Assistance Urine Appearance Sediment Sediment Mucous Threads Mucous Threads Purulent Purulent Opaque Opaque Uretheral (Barba) Sediment Mucous Threads Opaque Urine Color Light Doris Light Doris Uretheral (Barba) Light Doris Exam: General: Alert, Awake, No acute Distress Eyes/N/T: EOMI, Head/Neck: neck supple, CV: RRR, No murmurs, Pulm: Clear b/l, no wheezing/rhonchi/rales Abd: soft, nontender, +BS x4 Ext: no clubbing/cyanosis/edema Back: Large decubitus sacral ulcer : Barba in place with severely cloudy urine initally now starting to clear, Barba replaced in ED Neuro: Alert, no focal deficits, moves all extremities, CN 2-12 grossly intact, Skin: warm/dry OBJ DATA Labs CBC & Chem 7: 08/11/22 05:14 08/11/22 05:13 Labs: Abnormal Lab Results 08/10/22 08/10/22 08/10/22 15:00 13:54 12:01 WBC 23.8 H Hct 46.2 H POC Hct RDW 17.3 H Plt Count 459 H Neut % (Auto) 82.6 H Lymph % (Auto) 8.0 L Miller # (Auto) 2.01 H Immature Gran # 0.10 H Absolute Neutrophils 19.65 H D-Dimer POC VBG pH POC VBG pCO2 at Temp POC VBG pO2 POC VBG HCO3 POC VBG Total CO2 POC Venous O2 Sat POC VBG Base Excess VBG Lactic Acid 4.3 H* POC Chloride Carbon Dioxide POC Total CO2 Anion Gap POC BUN BUN Creatinine POC Creatinine Glucose POC Glucose POC WB Ioniz Calcium AST Alkaline Phosphatase C-Reactive Protein NT-Pro-B Natriuret Pep Albumin Albumin/Globulin Ratio Urine Appearance Turbid A Urine Protein 300(3+) A Urine Occult Blood 3+(large) A Urine Nitrate Positive A Ur Leukocyte Esterase 3+(large) A Urine RBC > 182 H Urine WBC > 182 H Ur Squamous Epith Cells 13 H Urine Bacteria Many A 08/10/22 08/10/22 08/10/22 12:00 12:00 11:47 WBC Hct POC Hct RDW Plt Count Neut % (Auto) Lymph % (Auto) Miller # (Auto) Immature Gran # Absolute Neutrophils D-Dimer 0.89 H POC VBG pH 7.44 H POC VBG pCO2 at Temp 30.2 L POC VBG pO2 63 H POC VBG HCO3 20.3 L POC VBG Total CO2 21.0 L POC Venous O2 Sat 93.0 H POC VBG Base Excess -4.0 L VBG Lactic Acid 2.6 H POC Chloride Carbon Dioxide 20 L POC Total CO2 Anion Gap 17.0 H POC BUN BUN 31 H Creatinine 3.0 H POC Creatinine Glucose 133 H POC Glucose POC WB Ioniz Calcium AST 50 H Alkaline Phosphatase 140 H C-Reactive Protein 8.00 H NT-Pro-B Natriuret Pep 1148.0 H Albumin 3.1 L Albumin/Globulin Ratio 0.8 L Urine Appearance Urine Protein Urine Occult Blood Urine Nitrate Ur Leukocyte Esterase Urine RBC Urine WBC Ur Squamous Epith Cells Urine Bacteria 08/10/22 11:41 WBC Hct POC Hct 49.0 H RDW Plt Count Neut % (Auto) Lymph % (Auto) Miller # (Auto) Immature Gran # Absolute Neutrophils D-Dimer POC VBG pH POC VBG pCO2 at Temp POC VBG pO2 POC VBG HCO3 POC VBG Total CO2 POC Venous O2 Sat POC VBG Base Excess VBG Lactic Acid POC Chloride 109 H Carbon Dioxide POC Total CO2 20.0 L Anion Gap POC BUN 35 H BUN Creatinine POC Creatinine 3.2 H Glucose POC Glucose 139 H POC WB Ioniz Calcium 1.10 L AST Alkaline Phosphatase C-Reactive Protein NT-Pro-B Natriuret Pep Albumin Albumin/Globulin Ratio Urine Appearance Urine Protein Urine Occult Blood Urine Nitrate Ur Leukocyte Esterase Urine RBC Urine WBC Ur Squamous Epith Cells Urine Bacteria Meds: Medications Acetaminophen (Acetaminophen 325 Mg Tablet) 650 mg PO Q6HP PRN; Protocol PRN Reason: Per Pain Protocol/Fever > 101 Albuterol/Ipratropium (Ipratropium/Albuterol 3 Ml Ampul.Neb) 3 ml NEB Q4HP PRN PRN Reason: Shortness Of Breath Apixaban (Apixaban 5 Mg Tablet) 5 mg PO BID [facility] Last Admin: 08/10/22 21:05 Dose: 5 mg Calamine/Phenol (Menthol/Zinc Oxide Oint.Top 113 Gm) 1 dose TOPICAL QIDP PRN PRN Reason: prevention of pressure sores Docusate Sodium (Docusate Sodium 100 Mg Capsule) 100 mg PO BID [facility] Last Admin: 08/10/22 21:05 Dose: 100 mg Gabapentin (Gabapentin 300 Mg Capsule) 600 mg PO 0900,1500 [facility] Gabapentin (Gabapentin 300 Mg Capsule) 900 mg PO QHS [facility] Last Admin: 08/10/22 21:06 Dose: 900 mg Potassium Chloride 40 meq/ (Dextrose) 520 mls @ 130 mls/hr IV UD PRN PRN Reason: Potassium < 3 Magnesium Sulfate (Magnesium Sulfate) 2 gm in 50 mls @ 50 mls/hr IV UD PRN PRN Reason: Magnesium </= 1.6 Sodium Chloride (Sodium Chloride 0.9%) 1,000 mls @ 100 mls/hr IV .Q10H [facility] Last Admin: 08/11/22 01:52 Dose: 100 mls/hr Piperacillin Sod/Tazobactam (Sod 2.25 gm/ Dextrose) 50 mls @ 100 mls/hr IV Q6H [facility]; Protocol Last Infusion: 08/11/22 00:42 Dose: Infused Lactobacillus Rhamnosus (Lactobacillus 1 Capsule) 1 cap PO QDAY [facility] Morphine Sulfate (Morphine 15 Mg Tab.Sr.12h) 15 mg PO Q12H [facility]; Protocol Last Admin: 08/10/22 21:05 Dose: 15 mg Ondansetron HCl (Ondansetron 4 Mg/2 Ml Vial) 4 mg IV Q4HP PRN PRN Reason: Nausea And Vomiting Oxcarbazepine 150 Mg (Tablet) 1 dose PO HS [facility] Last Admin: 08/10/22 21:06 Dose: 1 dose Polyethylene Glycol (Polyethylene Glycol 3350 17 Gm Packet) 17 gm PO DAILYP PRN PRN Reason: Constipation Potassium Chloride (Potassium Chloride 20 Meq Tablet) 40 meq PO UD PRN PRN Reason: Potssium is 3-3.5 Potassium Chloride (Potassium Chloride 20 Meq Tablet) 40 meq PO UD PRN PRN Reason: Potassium < 3 Senna (Sennosides 1 Tablet) 2 tab PO DAILYP PRN PRN Reason: Constipation Sodium Chloride (0.9 % Sodium Chloride 10 Ml Syringe) 10 ml IV Q8 [facility] Last Admin: 08/11/22 06:21 Dose: 10 ml Tolterodine Tartrate (Tolterodine 2 Mg Cap.Xl.24h) 2 mg PO QDAY PRN PRN Reason: Bladder control A/P Narrative A/P Narrative: A: *severe Sepsis: Source likely versus chronic sacral decubitus ulcer -leukocytosis improving *Hypotension: 2/2 qbove *Hyperlactatemia: *UTI ( ): *Large sacral decubitus ulcer w/diverting colostomy: -Patient recently taken off hospice because she was doing better including her ulcer healing *LOS w/volume depletion: 2/2 above -improving *Hypomagnesemia: *h/o multiple sclerosis w/paraplegia: *Neurogenic bladder: Chronic Barba *Poor functional status: Patient is bedbound *Chr Pain + h/o trigeminal Neuralgia: on Oxcarbazepine *Goals of care: Patient recently taken off hospice because of improvement P: -Empiric antibiotics, pending BC/UC/WC -IVF's, prn vasopressors, monitor vitals closely -f/u lactate -Follow-up renal function, uop, i/o -f/u chemistry/cbc, monitor and replace electrolytes -Wound care team consult -Chronic pain medications -MRI pelvis f/o osteo under wound -PT/OT -CM for placement needs -ppx: home apixaban Time Spent With Patient Time: Total time spent is greater than 50% in coordination of care (as documented) at patient's floor/unit and/or counseling patient: Critical Care Time: Yes Total Critical Care Time: 45
[2022-08-11 07:56] LABS: ALT/SGPT 22 U/L (<40); AST/SGOT 29 U/L (<32); Albumin 2.4 gm/dL (3.2-5.2); Albumin/Globulin Ratio 0.9 (1.0-2.3); Alkaline Phosphatase 90 U/L (39-117); Bilirubin,Direct < 0.2 mg/dL (0-0.3); Bilirubin,Total 0.6 mg/dL (0.1-1.0); Blood Urea Nitrogen 32 mg/dL (8-23); Calcium 8.1 mg/dL (8.6-10.4); Carbon Dioxide 20 mmol/L (22-30); Chloride 104 mmol/L (96-108); Globulin 2.8 gm/dL (2.2-3.7); Glomerular Filtration Rate 25; Glucose 95 mg/dL (70-105); Lactate Dehydrogenase 239 U/L (135-225); Phosphorous 3.8 mg/dL (2.5-4.5); Triglycerides 152 mg/dL (<150); Uric Acid 7.8 mg/dL (2.5-8.0)
[2022-08-11 08:01] LABS: Hematocrit 34.9 % (34.1-44.9); Hemoglobin 10.8 g/dL (11.2-15.7); Mean Cell Volume 95.1 fL (80.0-100.0); Mean Corpuscular HGB Conc 30.9 g/dL (31.0-36.0); Mean Platelet Volume 10.7 fL (8.8-12.5); Platelet Count 247 K/mcL (140-440); RBC 3.67 M/mcL (3.59-5.38); WBC 14.6 K/mcL (4.5-11.0)
[2022-08-11] MEDS: GABAPENTIN 300 MG CAPSULE PO SCH ×3 (08:32→21:09)
[2022-08-11] MEDS: DOCUSATE SODIUM 100 MG CAPSULE PO SCH ×2 (08:32→21:05)
[2022-08-11] MEDS: APIXABAN 5 MG TABLET PO SCH ×2 (08:32→21:06)
[2022-08-11] MEDS: morphine 15 MG TAB.SR.12H PO SCH ×2 (08:36→21:06)
[2022-08-11] MEDS: LACTOBACILLUS 1 CAPSULE PO SCH (08:37)
[2022-08-11 08:51] LABS: Anisocytosis RARE (None Seen); Band Neutrophils % 2 % (0-10); Basophils % (Manual) 1 % (0-2); Eosinophils % (Manual) 4 % (0-7); Hypochromasia RARE (None Seen); Lymphocytes % 3 % (15-49); Monocytes % (Manual) 10 % (1-12); Platelet Estimate NORMAL (Normal); RBC Morphology ABNORMAL (Normal); Segmented Neutrophils % 80 % (38-78)
--- NOTE | 2022-08-11 13:26 | Wound Care Consultation ---
HPI Date of Consult Consult Date: 08/11/22 Requesting physician: Willis Leigh Primary Care Provider: Christy Almeida Consult Narrative Chief complaint: Unstagable Pressure Sore to coccyx cc:: CC: Willis Leigh Review of Systems All systems: reviewed and no additional remarkable complaints except as stated PFSH PFSH All Active Problems Sepsis (Acute) Weakness (Acute) AMS (altered mental status) (Acute) Acute dehydration (Acute) Colostomy status (Acute) UTI (urinary tract infection) (Acute) Influenza A (Acute) Urge urinary incontinence (Acute) History of creation of ostomy (Acute) Bacteremia due to Gram-negative bacteria (Acute) Decubitus ulcer of sacral region, stage 4 (Acute) Decubitus ulcer (Acute) Cellulitis of sacral region (Acute) Hyponatremia (Acute) Leukocytosis (Acute) Medicare annual wellness visit, initial (Acute) TIA (transient ischemic attack) (Acute) Trigeminal neuralgia (Chronic) History of tubal ligation (Chronic) S/P CHELSEY-BSO (Chronic) History of cholecystectomy (Chronic) Urinary tract infection (Chronic) Urinary incontinence (Chronic) Spasm of muscle (Chronic) Personal history of urinary tract infection (Chronic) Pain in limb (Chronic) Obesity (Chronic) Neurogenic bladder (Chronic) Multiple sclerosis (Chronic) Hyperlipidemia (Chronic) Hip fracture (Chronic) Fatigue (Chronic) Hypertonicity of bladder (Chronic) Medical History Fatigue Hip fracture 1996 Hyperlipidemia Hypertonicity of bladder Medicare annual wellness visit, initial Multiple sclerosis No current treatment for MS. I have reviewed possibility of going to [facility] facility. She would rather go home. Evaluate with discharge planning to determine if Zosyn for 6 weeks will be covered under her insurance plan. She will need weekly labs CBC CMP sed rate and CRP. 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 This wound may not heal secondary to her comorbid risk factors. Discussed the possibility of future surgical debridement, possible coccygectomy, future muscle flap. Discussed the poss ibility of oral therapy to follow 6 weeks of IV therapy. Discussed nutritional status and pressure relief. High risk for poor wound healing and chronic wound with chronic antibiotic therapy. Neurogenic bladder 08/09/14 Obesity Malnutrition with prealbumin of 10. Pain in limb Personal history of urinary tract infection Spasm of muscle Trigeminal neuralgia 05/09/2015 - Dr. Gualberto Peña Urinary incontinence Urinary tract infection Urine culture was positive for both Proteus and Enterobacter. Surgical History History of cholecystectomy 2004 History of surgery 09/04/2021-skin flap closure of sacral ulcer History of tubal ligation 1993 S/P CHELSEY-BSO 1995 Family History Father Rheumatoid arthritis Essential hypertension Grandmother Diabetes mellitus Essential hypertension Malignant neoplasm of ovary Mother Essential hypertension Migraine Social History marital status: life partner occupational status: disabled smoking status: Never smoker alcohol intake frequency: holiday/special occasion only substance use type: does not use MEDS/ALLERGIES Home Medications and Allergies Home Medications Medication Instructions Recorded Confirmed Type apixaban 5 mg tablet 5 mg PO BID 08/13/21 08/10/22 History Lacto-B.anim,bifid-inulin 50 1 cap PO QDAY 08/10/22 08/10/22 History billion cell-50 mg capsule,delay release (Fortify Probiotic) docusate sodium 100 mg capsule 100 mg PO BID 08/10/22 08/10/22 History gabapentin 300 mg capsule 600 mg PO 0900,1500 08/10/22 08/10/22 History gabapentin 300 mg capsule 900 mg PO QHS 08/10/22 08/10/22 History menthol 0.44 %-zinc oxide 20.6 % 1 applic topical QID PRN 08/10/22 08/10/22 History topical ointment (Calmoseptine) prevention of pressure sores morphine 15 mg tablet,extended 15 mg PO Q12H 08/10/22 08/10/22 History release ondansetron 4 mg disintegrating 4 mg PO Q6H PRN Nausea 08/10/22 08/10/22 History tablet oxcarbazepine 150 mg tablet 150 mg PO HS 08/10/22 08/10/22 History sulfamethoxazole 400 1 tab PO QDAY 08/10/22 08/10/22 History mg-trimethoprim 80 mg tablet tolterodine 2 mg capsule,extended 2 mg PO QDAY PRN Bladder control 08/10/22 08/10/22 History release 24 hr Allergies Allergy/AdvReac Type Severity Reaction Status Date / Time Sulfa (Sulfonamide Allergy Unknown Unknown Verified 10/11/21 12:05 Antibiotics) adhesive tape AdvReac Unknown Unknown Verified 10/11/21 12:05 Physical Examination Vital Signs Vital signs: Temp Pulse Resp BP Pulse Ox O2 Del Method O2 Flow Rate 98.6 F 73 12 85/56 95 0 08/11/22 12:01 08/11/22 12:01 08/11/22 12:01 08/11/22 12:01 08/11/22 12:01 08/11/22 12:01 08/11/22 04:00 Results Labs Result diagrams: 08/11/22 05:14 08/11/22 05:13 Labs: Abnormal lab results 08/10/22 08/10/22 08/11/22 Range/Units 13:54 15:00 05:13 WBC (4.5-11.0) K/mcL Hgb (11.2-15.7) g/dL MCHC (31.0-36.0) g/dL RDW (11.5-14.5) % Seg Neutrophils % (38-78) % Lymphocytes % (15-49) % RBC Morphology (Normal) Hypochromasia (None Seen) Anisocytosis (None Seen) VBG Lactic Acid 4.3 H* (0.5-2.0) mmol/L Carbon Dioxide 20 L (22-30) mmol/L BUN 32 H (8-23) mg/dL Creatinine 2.0 H (0.6-1.1) mg/dL Calcium 8.1 L (8.6-10.4) mg/dL Magnesium 1.3 L (1.6-2.5) mg/dL GGT 105 H (5-36) U/L Lactate Dehydrogenase 239 H (135-225) U/L Total Protein 5.2 L (5.9-8.4) gm/dL Albumin 2.4 L (3.2-5.2) gm/dL Albumin/Globulin Ratio 0.9 L (1.0-2.3) Triglycerides 152 H (<150) mg/dL Urine Appearance Turbid A (Clear) Urine Protein 300(3+) A (Negative) mg/dL Urine Occult Blood 3+(large) A (Negative) mattie/mcL Urine Nitrate Positive A (Negative) Ur Leukocyte Esterase 3+(large) A (Negative) /uL Urine RBC > 182 H (0-1) /hpf Urine WBC > 182 H (0-4) /hpf Ur Squamous Epith Cells 13 H (0-4) /hpf Urine Bacteria Many A (0) /hpf 08/11/22 Range/Units 05:14 WBC 14.6 H (4.5-11.0) K/mcL Hgb 10.8 L (11.2-15.7) g/dL MCHC 30.9 L (31.0-36.0) g/dL RDW 16.0 H (11.5-14.5) % Seg Neutrophils % 80 H (38-78) % Lymphocytes % 3 L (15-49) % RBC Morphology Abnormal A (Normal) Hypochromasia Rare A (None Seen) Anisocytosis Rare A (None Seen) VBG Lactic Acid (0.5-2.0) mmol/L Carbon Dioxide (22-30) mmol/L BUN (8-23) mg/dL Creatinine (0.6-1.1) mg/dL Calcium (8.6-10.4) mg/dL Magnesium (1.6-2.5) mg/dL GGT (5-36) U/L Lactate Dehydrogenase (135-225) U/L Total Protein (5.9-8.4) gm/dL Albumin (3.2-5.2) gm/dL Albumin/Globulin Ratio (1.0-2.3) Triglycerides (<150) mg/dL Urine Appearance (Clear) Urine Protein (Negative) mg/dL Urine Occult Blood (Negative) mattie/mcL Urine Nitrate (Negative) Ur Leukocyte Esterase (Negative) /uL Urine RBC (0-1) /hpf Urine WBC (0-4) /hpf Ur Squamous Epith Cells (0-4) /hpf Urine Bacteria (0) /hpf Diabetes panel 08/11/22 Range/Units 05:13 Sodium 137 (133-145) mmol/L Potassium 4.5 (3.3-5.1) mmol/L Chloride 104 (96-108) mmol/L Carbon Dioxide 20 L (22-30) mmol/L BUN 32 H (8-23) mg/dL Creatinine 2.0 H (0.6-1.1) mg/dL Glucose 95 (70-105) mg/dL Calcium 8.1 L (8.6-10.4) mg/dL AST 29 (<32) U/L ALT 22 (<40) U/L Alkaline Phosphatase 90 (39-117) U/L Total Protein 5.2 L (5.9-8.4) gm/dL Albumin 2.4 L (3.2-5.2) gm/dL Triglycerides 152 H (<150) mg/dL Calcium panel 08/11/22 Range/Units 05:13 Calcium 8.1 L (8.6-10.4) mg/dL Phosphorus 3.8 (2.5-4.5) mg/dL Albumin 2.4 L (3.2-5.2) gm/dL Pituitary panel 08/11/22 Range/Units 05:13 Sodium 137 (133-145) mmol/L Potassium 4.5 (3.3-5.1) mmol/L Chloride 104 (96-108) mmol/L Carbon Dioxide 20 L (22-30) mmol/L BUN 32 H (8-23) mg/dL Creatinine 2.0 H (0.6-1.1) mg/dL Glucose 95 (70-105) mg/dL Calcium 8.1 L (8.6-10.4) mg/dL Adrenal panel 08/11/22 Range/Units 05:13 Sodium 137 (133-145) mmol/L Potassium 4.5 (3.3-5.1) mmol/L Chloride 104 (96-108) mmol/L Carbon Dioxide 20 L (22-30) mmol/L BUN 32 H (8-23) mg/dL Creatinine 2.0 H (0.6-1.1) mg/dL Glucose 95 (70-105) mg/dL Calcium 8.1 L (8.6-10.4) mg/dL Total Bilirubin 0.6 (0.1-1.0) mg/dL AST 29 (<32) U/L ALT 22 (<40) U/L Alkaline Phosphatase 90 (39-117) U/L Total Protein 5.2 L (5.9-8.4) gm/dL Albumin 2.4 L (3.2-5.2) gm/dL All other labs normal. A/P Narrative A/P Narrative: Patient with unstagble Pressure ulcer to coccyx. Wound noted to have slough and biofilm Plan of Treatment: MRI Wet to dry dressing, wound care nurse to follow Time Spent With Patient Time: Total time spent is greater than 50% in coordination of care (as documented) at patient's floor/unit and/or counseling patient:
[2022-08-12] MEDS: PIPERACILLIN SODIUM/TAZOBACTAM 2.25 GM in DEXTROSE 5% IN WATER 50 ML IV SCH ×3 (00:52→11:50)
[2022-08-12] MEDS: 0.9 % SODIUM CHLORIDE 1,000 ML IV SCH ×4 (02:57→16:16)
[2022-08-12] MEDS: 0.9 % SODIUM CHLORIDE 10 ML SYRINGE IV SCH ×3 (05:50→21:57)
[2022-08-12] MEDS ORDERED: VANCOMYCIN PER PHARMACY IV SCH (08:07)
--- NOTE | 2022-08-12 08:10 | Internal Med Progress Note ---
SUBJECTIVE Subjective Patient information: Note initiated : 08/12/22 at 8:05 am Service Date, if different from initiated Date: [] Patient: Bridgette Cuevas a 67 y/o F admitted on 08/10/22 for fever, tachycardic, decreased urine output. Chief Complaint: [] Interval history: History of present illness: Ms. Cuevas is a 67 year old F Brought into the ED for weakness decreased level of consciousness. She lives at home with family. She was recently taken off hospice because she was doing well. And her sacral decubitus wound was improving. However she is also developed decreased level conscious with past couple days weakness decreased urine output. Family says her urine which always looks dirty as dirty or than usual. Patient denies fever chills. She was tachycardic when she came in she was febrile at 102. Leukocytosis. Had acute kidney injury with a creatinine 3 0 CRP of 18 a lactate of 2.6. Blood pressure fluctuating systolic between the 90s and 100s. Has a chronic indwelling catheter for chronic wounds multiple sclerosis likely neurogenic bladder. Looks like she is on Bactrim for chronic UTIs. She is also on Eliquis the family says because she is bedbound and did not report any history of DVTs or atrial fibrillation. 08/11 Patient hypotensive at times last night, as needed vasopressors ordered but not yet needed. Little better today. Lactic acidosis worsened and then improving today. Leukocytosis. Acute kidney injury creatinine slowly improving. Hypomagnesemia 1.3. 08/12 MRI showed cellulitis and osteomyelitis of the coccyx. Patient says she is still very weak. Blood pressure soft but stable. Leukocytosis improving. Renal function improving. Still metabolic acidosis. Urine culture with gram-negative bacillus and blood cultures gram-positive cocci. Repeat blood cultures in the morning. I explained that the treatment of osteomyelitis will be long-term antibiotics. Patient would like to undergo this treatment as required. I addressed CODE STATUS with her and her and she decided to stay DNR as per her [facility] CODE STATUS Review of Systems: denies headache/fever/chills/nausea/vomiting/chest or abdominal pain/cough/dyspnea/diarrhea. Otherwise see above. Constitutional Vitals: Vital Signs Temp Pulse Resp BP Pulse Ox O2 Del Method O2 Flow Rate 98.7 F 67 11 L 96/64 98 0 08/12/22 08:01 12/14/22 08:01 08/12/22 08:01 08/12/22 08:01 08/12/22 08:01 08/12/22 08:01 08/12/22 00:05 Period Temp Pulse Resp BP Sys/Jeter Pulse Ox O2 Del Method O2 Flow Rate Last 24 Hr 97.2 F-98.7 F 63-87 11-17 83-110/49-71 92-99 Room Air-Room Air 0-0 Intake and Output 08/11/22 08/12/22 08/12/22 19:59 03:59 11:59 Intake Total 460 1290 170 Output Total 650 925 Balance -190 365 170 Weight 76.521 kg 77.7 kg Intake & Output: Intake & Output 08/11/22 08/12/22 08/12/22 19:59 03:59 11:59 Intake Total 460 1290 170 Output Total 650 925 Balance -190 365 170 Weight 76.521 kg 77.7 kg Intake: IV 100 1050 50 Sodium Chloride 0.9% 1,000 ml @ 1000 100 mls/hr IV .Q10H [facility] Rx#: [id number] Zosyn 2.25 gm In Dextrose 5% in 100 50 50 Water 50 ml @ 100 mls/hr IV Q6H [facility] Rx#:[id number] Oral 360 240 120 Output: Urine Catheter Amount 350 650 Void Amount 150 Stool 300 125 Other: Meal Dinner 4 preeti crackers Percent of Meal Consumed 100% Feeding Ability Total Assistance Assist with Tray Set Up Urine Appearance Cloudy Cloudy Uretheral (Barba) Cloudy Cloudy Urine Color Yellow Yellow Uretheral (Barba) Yellow Yellow Urine Odor Strong Stool Size Small Stool Color Brown Brown Stool Consistency Soft Loose Exam: General: Alert, Awake, No acute Distress Eyes/N/T: EOMI, Head/Neck: neck supple, CV: RRR, No murmurs, Pulm: Clear b/l, no wheezing/rhonchi/rales Abd: soft, nontender, +BS x4 Ext: no clubbing/cyanosis/edema Back: Large open decubitus sacral ulcer : Barba in place with severely cloudy urine initally now starting to clear, Barba replaced in ED Neuro: Alert, no focal deficits, moves all extremities, CN 2-12 grossly intact, Skin: warm/dry OBJ DATA Labs CBC & Chem 7: 08/12/22 05:20 08/12/22 07:44 Labs: Abnormal Lab Results 08/12/22 08/11/22 08/11/22 05:20 05:14 05:13 WBC 14.6 H Hgb 10.8 L Hct POC Hct MCHC 30.9 L RDW 16.0 H Plt Count Neut % (Auto) Lymph % (Auto) [place] # (Auto) Seg Neutrophils % 80 H Lymphocytes % 3 L Immature Gran # Absolute Neutrophils RBC Morphology Abnormal A Hypochromasia Rare A Anisocytosis Rare A D-Dimer POC VBG pH POC VBG pCO2 at Temp POC VBG pO2 POC VBG HCO3 POC VBG Total CO2 POC Venous O2 Sat POC VBG Base Excess VBG Lactic Acid POC Chloride Carbon Dioxide 20 L POC Total CO2 Anion Gap POC BUN BUN 32 H Creatinine 2.0 H POC Creatinine Glucose POC Glucose Calcium 8.1 L POC WB Ioniz Calcium Magnesium 1.3 L GGT 105 H AST Alkaline Phosphatase Lactate Dehydrogenase 239 H C-Reactive Protein 15.10 H NT-Pro-B Natriuret Pep Total Protein 5.2 L Albumin 2.4 L Albumin/Globulin Ratio 0.9 L Triglycerides 152 H Urine Appearance Urine Protein Urine Occult Blood Urine Nitrate Ur Leukocyte Esterase Urine RBC Urine WBC Ur Squamous Epith Cells Urine Bacteria 08/10/22 08/10/22 08/10/22 15:00 13:54 12:01 WBC 23.8 H Hgb Hct 46.2 H POC Hct MCHC RDW 17.3 H Plt Count 459 H Neut % (Auto) 82.6 H Lymph % (Auto) 8.0 L [place] # (Auto) 2.01 H Seg Neutrophils % Lymphocytes % Immature Gran # 0.10 H Absolute Neutrophils 19.65 H RBC Morphology Hypochromasia Anisocytosis D-Dimer POC VBG pH POC VBG pCO2 at Temp POC VBG pO2 POC VBG HCO3 POC VBG Total CO2 POC Venous O2 Sat POC VBG Base Excess VBG Lactic Acid 4.3 H* POC Chloride Carbon Dioxide POC Total CO2 Anion Gap POC BUN BUN Creatinine POC Creatinine Glucose POC Glucose Calcium POC WB Ioniz Calcium Magnesium GGT AST Alkaline Phosphatase Lactate Dehydrogenase C-Reactive Protein NT-Pro-B Natriuret Pep Total Protein Albumin Albumin/Globulin Ratio Triglycerides Urine Appearance Turbid A Urine Protein 300(3+) A Urine Occult Blood 3+(large) A Urine Nitrate Positive A Ur Leukocyte Esterase 3+(large) A Urine RBC > 182 H Urine WBC > 182 H Ur Squamous Epith Cells 13 H Urine Bacteria Many A 08/10/22 08/10/22 08/10/22 12:00 12:00 11:47 WBC Hgb Hct POC Hct MCHC RDW Plt Count Neut % (Auto) Lymph % (Auto) [place] # (Auto) Seg Neutrophils % Lymphocytes % Immature Gran # Absolute Neutrophils RBC Morphology Hypochromasia Anisocytosis D-Dimer 0.89 H POC VBG pH 7.44 H POC VBG pCO2 at Temp 30.2 L POC VBG pO2 63 H POC VBG HCO3 20.3 L POC VBG Total CO2 21.0 L POC Venous O2 Sat 93.0 H POC VBG Base Excess -4.0 L VBG Lactic Acid 2.6 H POC Chloride Carbon Dioxide 20 L POC Total CO2 Anion Gap 17.0 H POC BUN BUN 31 H Creatinine 3.0 H POC Creatinine Glucose 133 H POC Glucose Calcium POC WB Ioniz Calcium Magnesium GGT AST 50 H Alkaline Phosphatase 140 H Lactate Dehydrogenase C-Reactive Protein 8.00 H NT-Pro-B Natriuret Pep 1148.0 H Total Protein Albumin 3.1 L Albumin/Globulin Ratio 0.8 L Triglycerides Urine Appearance Urine Protein Urine Occult Blood Urine Nitrate Ur Leukocyte Esterase Urine RBC Urine WBC Ur Squamous Epith Cells Urine Bacteria 08/10/22 11:41 WBC Hgb Hct POC Hct 49.0 H MCHC RDW Plt Count Neut % (Auto) Lymph % (Auto) [place] # (Auto) Seg Neutrophils % Lymphocytes % Immature Gran # Absolute Neutrophils RBC Morphology Hypochromasia Anisocytosis D-Dimer POC VBG pH POC VBG pCO2 at Temp POC VBG pO2 POC VBG HCO3 POC VBG Total CO2 POC Venous O2 Sat POC VBG Base Excess VBG Lactic Acid POC Chloride 109 H Carbon Dioxide POC Total CO2 20.0 L Anion Gap POC BUN 35 H BUN Creatinine POC Creatinine 3.2 H Glucose POC Glucose 139 H Calcium POC WB Ioniz Calcium 1.10 L Magnesium GGT AST Alkaline Phosphatase Lactate Dehydrogenase C-Reactive Protein NT-Pro-B Natriuret Pep Total Protein Albumin Albumin/Globulin Ratio Triglycerides Urine Appearance Urine Protein Urine Occult Blood Urine Nitrate Ur Leukocyte Esterase Urine RBC Urine WBC Ur Squamous Epith Cells Urine Bacteria Meds: Medications Acetaminophen (Acetaminophen 325 Mg Tablet) 650 mg PO Q6HP PRN; Protocol PRN Reason: Per Pain Protocol/Fever > 101 Albuterol/Ipratropium (Ipratropium/Albuterol 3 Ml Ampul.Neb) 3 ml NEB Q4HP PRN PRN Reason: Shortness Of Breath Apixaban (Apixaban 5 Mg Tablet) 5 mg PO BID [facility] Last Admin: 08/11/22 21:06 Dose: 5 mg Calamine/Phenol (Menthol/Zinc Oxide Oint.Top 113 Gm) 1 dose TOPICAL QIDP PRN PRN Reason: prevention of pressure sores Docusate Sodium (Docusate Sodium 100 Mg Capsule) 100 mg PO BID [facility] Last Admin: 08/11/22 21:05 Dose: 100 mg Gabapentin (Gabapentin 300 Mg Capsule) 600 mg PO 0900,1500 [facility] Last Admin: 08/11/22 14:47 Dose: 600 mg Gabapentin (Gabapentin 300 Mg Capsule) 900 mg PO QHS [facility] Last Admin: 08/11/22 21:09 Dose: 900 mg Potassium Chloride 40 meq/ (Dextrose) 520 mls @ 130 mls/hr IV UD PRN PRN Reason: Potassium < 3 Magnesium Sulfate (Magnesium Sulfate) 2 gm in 50 mls @ 50 mls/hr IV UD PRN PRN Reason: Magnesium </= 1.6 Last Infusion: 08/11/22 11:14 Dose: Infused Sodium Chloride (Sodium Chloride 0.9%) 1,000 mls @ 100 mls/hr IV .Q10H [facility] Last Admin: 08/12/22 07:10 Dose: Not Given Piperacillin Sod/Tazobactam (Sod 2.25 gm/ Dextrose) 50 mls @ 100 mls/hr IV Q6H [facility]; Protocol Last Infusion: 08/12/22 07:07 Dose: Infused Lactobacillus Rhamnosus (Lactobacillus 1 Capsule) 1 cap PO QDAY [facility] Last Admin: 08/11/22 08:37 Dose: 1 cap Morphine Sulfate (Morphine 15 Mg Tab.Sr.12h) 15 mg PO Q12H [facility]; Protocol Last Admin: 08/11/22 21:06 Dose: 15 mg Ondansetron HCl (Ondansetron 4 Mg/2 Ml Vial) 4 mg IV Q4HP PRN PRN Reason: Nausea And Vomiting Oxcarbazepine 150 Mg (Tablet) 1 dose PO HS [facility] Last Admin: 08/11/22 21:06 Dose: 1 dose Polyethylene Glycol (Polyethylene Glycol 3350 17 Gm Packet) 17 gm PO DAILYP PRN PRN Reason: Constipation Potassium Chloride (Potassium Chloride 20 Meq Tablet) 40 meq PO UD PRN PRN Reason: Potssium is 3-3.5 Potassium Chloride (Potassium Chloride 20 Meq Tablet) 40 meq PO UD PRN PRN Reason: Potassium < 3 Senna (Sennosides 1 Tablet) 2 tab PO DAILYP PRN PRN Reason: Constipation Sodium Chloride (0.9 % Sodium Chloride 10 Ml Syringe) 10 ml IV Q8 [facility] Last Admin: 08/12/22 05:50 Dose: 10 ml Tolterodine Tartrate (Tolterodine 2 Mg Cap.Xl.24h) 2 mg PO QDAY PRN PRN Reason: Bladder control Last Admin: 08/11/22 08:32 Dose: 2 mg A/P Narrative A/P Narrative: A: *severe Sepsis: Source likely and chronic sacral decubitus ulcer with infection and Osteo of coccyx -leukocytosis improving *Hypotension: 2/2 above, improved *Hyperlactatemia: resolved *UTI (GNB): *Bacteremia(GPC): 1/4 bottles so far, pending final *Large sacral decubitus ulcer w/diverting colostomy: wound infection and Osto of coccyx per mri -Patient recently taken off hospice because she was doing better including her ulcer healing *LOS w/volume depletion: 2/2 above -improving *Hypomagnesemia: *h/o multiple sclerosis w/paraplegia: *Neurogenic bladder: Chronic Barba *Poor functional status: Patient is bedbound *Chr Pain + h/o trigeminal Neuralgia: on Oxcarbazepine *Goals of care: Patient recently taken off hospice because of improvement P: -Vanc/zosyn, pending BC(serial)/UC/WC -IVF's decrease, prn vasopressors, monitor vitals closely -ID consult -Follow-up renal function, uop, i/o -f/u chemistry/cbc, monitor and replace electrolytes -Wound care team consult -Chronic pain medications -PT/OT -CM for placement needs -ppx: home apixaban DNR Time Spent With Patient Time: Total time spent is greater than 50% in coordination of care (as documented) at patient's floor/unit and/or counseling patient: Total time spent with greater than 50% in coordination of care (as documented) at patient's floor/unit and/or counseling patient:: 35 - 50 minutes
--- NOTE | 2022-08-12 08:38 | Magnetic Resonance Report ---
INDICATION: large decub ulcer, r/o osteomyelitis COMPARISON: FINDINGS: Multisequence multiplanar noncontrast MRI of the pelvis There is a large skin defect overlying the distal aspect of the sacrum and coccyx. There is soft tissue gas and large surrounding area of soft tissue induration/inflammation. There is bony destruction of the coccyx. Edema of the surrounding subcutaneous fat noted. There is a lesion in the left femoral neck which is low signal on T1 and bright on T2-weighted sequences. This measures 2.2 cm. There is a Barba catheter in the bladder. There is edema within and around the bilateral iliopsoas muscles. IMPRESSION: Sacral decubitus soft tissue ulcer with subcutaneous gas, cellulitis and osteomyelitis with bony destruction of the coccyx. I suspect cellulitis of the bilateral iliopsoas musculature. Lesion in the left femoral neck is indeterminate. This could represent a tumor, infection or possibly partial fracture Interpreted and Authenticated by: Kings Fuller M.D. 08/12/22
[2022-08-12 08:39] LABS: ALT/SGPT 18 U/L (<40); AST/SGOT 21 U/L (<32); Albumin 2.2 gm/dL (3.2-5.2); Albumin/Globulin Ratio 0.7 (1.0-2.3); Alkaline Phosphatase 83 U/L (39-117); Bilirubin,Direct < 0.2 mg/dL (0-0.3); Bilirubin,Total 0.2 mg/dL (0.1-1.0); Blood Urea Nitrogen 24 mg/dL (8-23); Calcium 7.9 mg/dL (8.6-10.4); Carbon Dioxide 19 mmol/L (22-30); Chloride 107 mmol/L (96-108); Globulin 3.1 gm/dL (2.2-3.7); Glomerular Filtration Rate 47; Glucose 153 mg/dL (70-105); Lactate Dehydrogenase 164 U/L (135-225); Phosphorous 2.8 mg/dL (2.5-4.5); Triglycerides 191 mg/dL (<150); Uric Acid 5.7 mg/dL (2.5-8.0)
[2022-08-12] MEDS: APIXABAN 5 MG TABLET PO SCH ×2 (09:33→21:05)
[2022-08-12] MEDS: LACTOBACILLUS 1 CAPSULE PO SCH (09:33)
[2022-08-12] MEDS: morphine 15 MG TAB.SR.12H PO SCH ×2 (09:34→21:12)
[2022-08-12] MEDS: DOCUSATE SODIUM 100 MG CAPSULE PO SCH ×2 (09:34→21:06)
[2022-08-12] MEDS: GABAPENTIN 300 MG CAPSULE PO SCH ×3 (09:34→21:05)
[2022-08-12] MEDS: VANCOMYCIN 1,000 MG in 0.9 % SODIUM CHLORIDE 250 ML IV SCH ×2 (09:34→21:06)
[2022-08-12 09:47] LABS: Basophils # (Auto) 0.07 K/mcL (0.00-0.30); Basophils % (Auto) 0.7 % (0.0-2.0); Eosinophils # (Auto) 0.59 K/mcL (0.00-0.70); Eosinophils % (Auto) 5.9 % (0.0-7.0); Lymphocytes # (Auto) 1.32 K/mcL (1.50-4.80); Lymphocytes % (Auto) 13.2 % (15.5-49.0); Mean Cell Volume 92.2 fL (80.0-100.0); Mean Corpuscular HGB Conc 30.8 g/dL (31.0-36.0); Mean Platelet Volume 11.4 fL (8.8-12.5); Monocytes # (Auto) 0.72 K/mcL (0.10-0.90); Monocytes % (Auto) 7.2 % (1.0-12.0); Neutrophils % (Auto) 72.4 % (38.0-78.0); Platelet Count 208 K/mcL (140-440); RBC 4.23 M/mcL (3.59-5.38); Red Cell Distribution Width 15.5 % (11.5-14.5)
--- NOTE | 2022-08-12 12:48 | Infectious Disease Consult ---
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 Patient was noted to be septic on admission with WBC of 23, creatinine is 3.0, UA with 180 WBCs, positive nitrite. Patient was on vancomycin and Zosyn. Blood cultures now positive for gram-positive cocci in clusters, urine culture positive for gram-negative mariano, wound cultures positive for Proteus mirabilis, ESBL positive. Patient is now improving clinically with creatinine down to 1.2, WBC 10. cc:: CC: Willis Leigh [facility] All Active Problems Sepsis (Acute) Weakness (Acute) AMS (altered mental status) (Acute) Acute dehydration (Acute) Colostomy status (Acute) UTI (urinary tract infection) (Acute) Influenza A (Acute) Urge urinary incontinence (Acute) History of creation of ostomy (Acute) Bacteremia due to Gram-negative bacteria (Acute) Decubitus ulcer of sacral region, stage 4 (Acute) Decubitus ulcer (Acute) Cellulitis of sacral region (Acute) Hyponatremia (Acute) Leukocytosis (Acute) Medicare annual wellness visit, initial (Acute) TIA (transient ischemic attack) (Acute) Trigeminal neuralgia (Chronic) History of tubal ligation (Chronic) S/P CHELSEY-BSO (Chronic) History of cholecystectomy (Chronic) Urinary tract infection (Chronic) Urinary incontinence (Chronic) Spasm of muscle (Chronic) Personal history of urinary tract infection (Chronic) Pain in limb (Chronic) Obesity (Chronic) Neurogenic bladder (Chronic) Multiple sclerosis (Chronic) Hyperlipidemia (Chronic) Hip fracture (Chronic) Fatigue (Chronic) Hypertonicity of bladder (Chronic) Medical History Fatigue Hip fracture 1996 Hyperlipidemia Hypertonicity of bladder Medicare annual wellness visit, initial Multiple sclerosis No current treatment for MS. I have reviewed possibility of going to detention facility. She would rather go home. Evaluate with discharge planning to determine if Zosyn for 6 weeks will be covered under her insurance plan. She will need weekly labs CBC CMP sed rate and CRP. 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 This wound may not heal secondary to her c omorbid risk factors. Discussed the possibility of future surgical debridement, possible coccygectomy, future muscle flap. Discussed the possibility of oral therapy to follow 6 weeks of IV therapy. Discussed nutritional status and pressure relief. High risk for poor wound healing and chronic wound with chronic antibiotic therapy. Neurogenic bladder 08/09/14 Obesity Malnutrition with prealbumin of 10. Pain in limb Personal history of urinary tract infection Spasm of muscle Trigeminal neuralgia 05/09/2015 - Dr. Gualberto Peña Urinary incontinence Urinary tract infection Urine culture was positive for both Proteus and Enterobacter. Surgical History History of cholecystectomy 2004 History of surgery 09/04/2021-skin flap closure of sacral ulcer History of tubal ligation 1993 S/P CHELSEY-BSO 1995 Family History Father Rheumatoid arthritis Essential hypertension Grandmother Diabetes mellitus Essential hypertension Malignant neoplasm of ovary Mother Essential hypertension Migraine Social History marital status: life partner occupational status: disabled smoking status: Never smoker alcohol intake frequency: holiday/special occasion only substance use type: does not use MEDS/ALLERGIES Home Medications and Allergies Home Medications Medication Instructions Recorded Confirmed Type apixaban 5 mg tablet 5 mg PO BID 08/13/21 08/10/22 History Lacto-B.anim,bifid-inulin 50 1 cap PO QDAY 08/10/22 08/10/22 History billion cell-50 mg capsule,delay release (Fortify Probiotic) docusate sodium 100 mg capsule 100 mg PO BID 08/10/22 08/10/22 History gabapentin 300 mg capsule 600 mg PO 0900,1500 08/10/22 08/10/22 History gabapentin 300 mg capsule 900 mg PO QHS 08/10/22 08/10/22 History menthol 0.44 %-zinc oxide 20.6 % 1 applic topical QID PRN 08/10/22 08/10/22 History topical ointment (Calmoseptine) prevention of pressure sores morphine 15 mg tablet,extended 15 mg PO Q12H 08/10/22 08/10/22 History release ondansetron 4 mg disintegrating 4 mg PO Q6H PRN Nausea 08/10/22 08/10/22 History tablet oxcarbazepine 150 mg tablet 150 mg PO HS 08/10/22 08/10/22 History sulfamethoxazole 400 1 tab PO QDAY 08/10/22 08/10/22 History mg-trimethoprim 80 mg tablet tolterodine 2 mg capsule,extended 2 mg PO QDAY PRN Bladder control 08/10/22 08/10/22 History release 24 hr Allergies Allergy/AdvReac Type Severity Reaction Status Date / Time Sulfa (Sulfonamide Allergy Unknown Unknown Verified 10/11/21 12:05 Antibiotics) adhesive tape AdvReac Unknown Unknown Verified 10/11/21 12:05 Physical Examination Vital Signs Vital signs: Temp Pulse Resp BP Pulse Ox O2 Del Method O2 Flow Rate 97.4 F 69 13 108/70 97 0 08/12/22 12:00 08/12/22 12:01 08/12/22 12:01 08/12/22 12:45 08/12/22 12:01 08/12/22 12:01 08/12/22 00:05 Constitutional General appearance: no acute distress Respiratory Effort: normal Integumentary Integumentary: decubitus ulcer (5.7x4.3 sacral wound that extend to bone. Bone is palpable. The wound bed is granular. No significant exudates. There is periwound maceration) Results Laboratory Findings CBC and BMP: 08/12/22 05:20 08/12/22 07:44 ABG, PT/INR, D-dimer: PT/INR, D-dimer D-Dimer 0.89 ug/mL (0.27-0.50) H 08/10/22 12:00 Abnormal lab findings: Abnormal Labs 08/10/22 08/10/22 08/10/22 11:41 11:47 12:00 WBC Hgb Hct POC Hct 49.0 H MCHC RDW Plt Count Immature Gran % (Auto) Neut % (Auto) Lymph % (Auto) Lymph # (Auto) [place] # (Auto) Seg Neutrophils % Lymphocytes % Immature Gran # Absolute Neutrophils RBC Morphology Hypochromasia Anisocytosis ESR D-Dimer 0.89 H POC VBG pH 7.44 H POC VBG pCO2 at Temp 30.2 L POC VBG pO2 63 H POC VBG HCO3 20.3 L POC VBG Total CO2 21.0 L POC Venous O2 Sat 93.0 H POC VBG Base Excess -4.0 L VBG Lactic Acid 2.6 H POC Chloride 109 H Carbon Dioxide POC Total CO2 20.0 L Anion Gap POC BUN 35 H BUN Creatinine POC Creatinine 3.2 H Glucose POC Glucose 139 H Calcium POC WB Ioniz Calcium 1.10 L Magnesium GGT AST Alkaline Phosphatase Lactate Dehydrogenase C-Reactive Protein NT-Pro-B Natriuret Pep Total Protein Albumin Albumin/Globulin Ratio Triglycerides Urine Appearance Urine Protein Urine Occult Blood Urine Nitrate Ur Leukocyte Esterase Urine RBC Urine WBC Ur Squamous Epith Cells Urine Bacteria 08/10/22 08/10/22 08/10/22 12:00 12:01 13:54 WBC 23.8 H Hgb Hct 46.2 H POC Hct MCHC RDW 17.3 H Plt Count 459 H Immature Gran % (Auto) Neut % (Auto) 82.6 H Lymph % (Auto) 8.0 L Lymph # (Auto) [place] # (Auto) 2.01 H Seg Neutrophils % Lymphocytes % Immature Gran # 0.10 H Absolute Neutrophils 19.65 H RBC Morphology Hypochromasia Anisocytosis ESR D-Dimer POC VBG pH POC VBG pCO2 at Temp POC VBG pO2 POC VBG HCO3 POC VBG Total CO2 POC Venous O2 Sat POC VBG Base Excess VBG Lactic Acid POC Chloride Carbon Dioxide 20 L POC Total CO2 Anion Gap 17.0 H POC BUN BUN 31 H Creatinine 3.0 H POC Creatinine Glucose 133 H POC Glucose Calcium POC WB Ioniz Calcium Magnesium GGT AST 50 H Alkaline Phosphatase 140 H Lactate Dehydrogenase C-Reactive Protein 8.00 H NT-Pro-B Natriuret Pep 1148.0 H Total Protein Albumin 3.1 L Albumin/Globulin Ratio 0.8 L Triglycerides Urine Appearance Turbid A Urine Protein 300(3+) A Urine Occult Blood 3+(large) A Urine Nitrate Positive A Ur Leukocyte Esterase 3+(large) A Urine RBC > 182 H Urine WBC > 182 H Ur Squamous Epith Cells 13 H Urine Bacteria Many A 08/10/22 08/11/22 08/11/22 15:00 05:13 05:14 WBC 14.6 H Hgb 10.8 L Hct POC Hct MCHC 30.9 L RDW 16.0 H Plt Count Immature Gran % (Auto) Neut % (Auto) Lymph % (Auto) Lymph # (Auto) [place] # (Auto) Seg Neutrophils % 80 H Lymphocytes % 3 L Immature Gran # Absolute Neutrophils RBC Morphology Abnormal A Hypochromasia Rare A Anisocytosis Rare A ESR D-Dimer POC VBG pH POC VBG pCO2 at Temp POC VBG pO2 POC VBG HCO3 POC VBG Total CO2 POC Venous O2 Sat POC VBG Base Excess VBG Lactic Acid 4.3 H* POC Chloride Carbon Dioxide 20 L POC Total CO2 Anion Gap POC BUN BUN 32 H Creatinine 2.0 H POC Creatinine Glucose POC Glucose Calcium 8.1 L POC WB Ioniz Calcium Magnesium 1.3 L GGT 105 H AST Alkaline Phosphatase Lactate Dehydrogenase 239 H C-Reactive Protein NT-Pro-B Natriuret Pep Total Protein 5.2 L Albumin 2.4 L Albumin/Globulin Ratio 0.9 L Triglycerides 152 H Urine Appearance Urine Protein Urine Occult Blood Urine Nitrate Ur Leukocyte Esterase Urine RBC Urine WBC Ur Squamous Epith Cells Urine Bacteria 08/12/22 08/12/22 08/12/22 05:20 05:20 07:44 WBC Hgb Hct POC Hct MCHC 30.8 L RDW 15.5 H Plt Count Immature Gran % (Auto) 0.6 H Neut % (Auto) Lymph % (Auto) 13.2 L Lymph # (Auto) 1.32 L [place] # (Auto) Seg Neutrophils % Lymphocytes % Immature Gran # 0.06 H Absolute Neutrophils RBC Morphology Hypochromasia Anisocytosis ESR D-Dimer POC VBG pH POC VBG pCO2 at Temp POC VBG pO2 POC VBG HCO3 POC VBG Total CO2 POC Venous O2 Sat POC VBG Base Excess VBG Lactic Acid POC Chloride Carbon Dioxide 19 L POC Total CO2 Anion Gap POC BUN BUN 24 H Creatinine 1.2 H POC Creatinine Glucose 153 H POC Glucose Calcium 7.9 L POC WB Ioniz Calcium Magnesium GGT 96 H AST Alkaline Phosphatase Lactate Dehydrogenase C-Reactive Protein 15.10 H NT-Pro-B Natriuret Pep Total Protein 5.3 L Albumin 2.2 L Albumin/Globulin Ratio 0.7 L Triglycerides 191 H Urine Appearance Urine Protein Urine Occult Blood Urine Nitrate Ur Leukocyte Esterase Urine RBC Urine WBC Ur Squamous Epith Cells Urine Bacteria 08/12/22 10:05 WBC Hgb Hct POC Hct MCHC RDW Plt Count Immature Gran % (Auto) Neut % (Auto) Lymph % (Auto) Lymph # (Auto) [place] # (Auto) Seg Neutrophils % Lymphocytes % Immature Gran # Absolute Neutrophils RBC Morphology Hypochromasia Anisocytosis ESR 75 H D-Dimer POC VBG pH POC VBG pCO2 at Temp POC VBG pO2 POC VBG HCO3 POC VBG Total CO2 POC Venous O2 Sat POC VBG Base Excess VBG Lactic Acid POC Chloride Carbon Dioxide POC Total CO2 Anion Gap POC BUN BUN Creatinine POC Creatinine Glucose POC Glucose Calcium POC WB Ioniz Calcium Magnesium GGT AST Alkaline Phosphatase Lactate Dehydrogenase C-Reactive Protein NT-Pro-B Natriuret Pep Total Protein Albumin Albumin/Globulin Ratio Triglycerides Urine Appearance Urine Protein Urine Occult Blood Urine Nitrate Ur Leukocyte Esterase Urine RBC Urine WBC Ur Squamous Epith Cells Urine Bacteria Microbiology: Microbiology 08/10/22 15:45 Decubitus - Buttocks Gram Stain - Final 08/10/22 15:45 Decubitus - Buttocks Wound Culture - Final Proteus mirabilis 08/12/22 09:30 Nose - Both Right and Left MRSA (PCR) - Final 08/10/22 11:49 Blood Blood Culture - Preliminary 08/10/22 13:54 Urine - Catheterized Urine Culture - Preliminary Gram negative bacillus 08/10/22 11:40 Blood Blood Culture - Preliminary Gram positive cocci 08/10/22 14:10 Nasopharynx SARS-CoV-2, Influenza & RSV (PCR) - Final Diagnostic Findings Chest x-ray: report reviewed and image reviewed CT scan - chest: report reviewed and image reviewed A/P Narrative A/P Narrative: 67-year-old who is bedbound due to MS with sacral decubitus ulcer, stage IV now with sepsis due to urinary tract infection, gram-positive cocci bacteremia. The bacteremia may be contamination versus translocation from the wound. Patient has a history of osteomyelitis and had 6 weeks of antibiotics. The sacral wound is still exposed. It is unclear if prolonged antibiotics will be of any help due to ongoing bone exposure. Therefore, would only treat for soft tissue infection with 10 days of culture directed therapy. Continue vancomycin pending the identification of the gram-positive cocci. Due to the susceptibility pattern, will change Zosyn to meropenem. In regard to the UTI, patient has become catheter related urinary tract infection. As she is in the hospital, we can remove the Barba catheter. Use the purewick to prevent urine from contaminating the wound. Time Spent With Patient Time: Total time spent is greater than 50% in coordination of care (as documented) at patient's floor/unit and/or counseling patient:
[2022-08-12] MEDS: MEROPENEM 0.5 GM in 0.9 % SODIUM CHLORIDE 50 ML IV SCH ×2 (14:43→18:51)
--- NOTE | 2022-08-12 18:25 | EKG ---
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
[2022-08-13] MEDS: MEROPENEM 0.5 GM in 0.9 % SODIUM CHLORIDE 50 ML IV SCH ×4 (00:16→17:09)
[2022-08-13] MEDS: 0.9 % SODIUM CHLORIDE 10 ML SYRINGE IV SCH ×2 (06:16→12:39)
[2022-08-13 07:08] LABS: Blood Urea Nitrogen 17 mg/dL (8-23); Carbon Dioxide 21 mmol/L (22-30); Chloride 110 mmol/L (96-108); Glomerular Filtration Rate 77; Glucose 98 mg/dL (70-105)
--- NOTE | 2022-08-13 07:48 | Internal Med Progress Note ---
SUBJECTIVE Subjective Patient information: Note initiated : 08/13/22 at 7:41 am Service Date, if different from initiated Date: [] Patient: Bridgette Cuevas a 67 y/o F admitted on 08/10/22 for fever, tachycardic, decreased urine output. Chief Complaint: [] Interval history: History of present illness: Ms. Cuevas is a 67 year old F Brought into the ED for weakness decreased level of consciousness. She lives at home with family. She was recently taken off hospice because she was doing well. And her sacral decubitus wound was improving. However she is also developed decreased level conscious with past couple days weakness decreased urine output. Family says her urine which always looks dirty as dirty or than usual. Patient denies fever chills. She was tachycardic when she came in she was febrile at 102. Leukocytosis. Had acute kidney injury with a creatinine 3 0 CRP of 18 a lactate of 2.6. Blood pressure fluctuating systolic between the 90s and 100s. Has a chronic indwelling catheter for chronic wounds multiple sclerosis likely neurogenic bladder. Looks like she is on Bactrim for chronic UTIs. She is also on Eliquis the family says because she is bedbound and did not report any history of DVTs or atrial fibrillation. 08/11 Patient hypotensive at times last night, as needed vasopressors ordered but not yet needed. Little better today. Lactic acidosis worsened and then improving today. Leukocytosis. Acute kidney injury creatinine slowly improving. Hypomagnesemia 1.3. 08/12 MRI showed cellulitis and osteomyelitis of the coccyx. Patient says she is still very weak. Blood pressure soft but stable. Leukocytosis improving. Renal function improving. Still metabolic acidosis. Urine culture with gram-negative bacillus and blood cultures gram-positive cocci. Repeat blood cultures in the morning. I explained that the treatment of osteomyelitis will be long-term antibiotics. Patient would like to undergo this treatment as required. I addressed CODE STATUS with her and her and she decided to stay DNR as per her [facility] CODE STATUS 08/13 Patient feeling a little bit better today. Seen by infectious disease yesterday. See note. Renal function and CRP improved. Review of Systems: denies headache/fever/chills/nausea/vomiting/chest or abdominal pain/cough/dyspnea/diarrhea. Otherwise see above. Constitutional Vitals: Vital Signs Temp Pulse Resp BP Pulse Ox O2 Del Method O2 Flow Rate 97.2 F 59 L 11 L 115/76 98 0 08/13/22 07:08 08/13/22 06:03 08/13/22 06:03 08/13/22 06:02 08/13/22 06:03 08/13/22 06:02 08/12/22 00:05 Period Temp Pulse Resp BP Sys/Jeter Pulse Ox O2 Del Method O2 Flow Rate Last 24 Hr 97.2 F-100.2 F 57-84 11-16 79-122/51-82 97-100 Room Air-Room Air Intake and Output 08/12/22 08/13/22 08/13/22 19:59 03:59 11:59 Intake Total 1052 300 290 Output Total 1000 275 450 Balance 52 25 -160 Weight 80.513 kg Intake & Output: Intake & Output 08/12/22 08/13/22 08/13/22 19:59 03:59 11:59 Intake Total 1052 300 290 Output Total 1000 275 450 Balance 52 25 -160 Weight 80.513 kg Intake: Nourishment/Supplement quantity 240 (ml) IV 362 300 50 Sodium Chloride 0.9% 1,000 ml @ 212 100 mls/hr IV .Q10H LOVE Rx#: [id number] Merrem 0.5 gm In Sodium 100 50 50 Chloride 0.9% 50 ml @ 100 mls/ hr IV Q6H LOVE Rx#:[id number] Zosyn 2.25 gm In Dextrose 5% in 50 Water 50 ml @ 100 mls/hr IV Q6H LOVE Rx#:[id number] Vancomycin 1,000 mg In Sodium 250 Chloride 0.9% 250 ml @ 250 mls/ hr IV Q12H LOVE Rx#:[id number] Oral 450 240 Output: Urine Catheter Amount 850 200 450 Stool 150 75 Other: Meal Dinner snack Percent of Meal Consumed 75% 100% Feeding Ability Total Assistance Assist with Tray Set Up Nourishment/Supplement name Ensure Urine Appearance Clear Clear Clear Urine Color Yellow Yellow Bright Yellow Stool Color Brown Stool Consistency Loose Exam: General: Alert, Awake, No acute Distress Eyes/N/T: EOMI, Head/Neck: neck supple, CV: RRR, No murmurs, Pulm: Clear b/l, no wheezing/rhonchi/rales Abd: soft, nontender, +BS x4 Ext: no clubbing/cyanosis/edema Back: Large open decubitus sacral ulcer : Luu in place with severely cloudy urine initally now starting to clear, Luu replaced in ED Neuro: Alert, no focal deficits, moves all extremities, Skin: warm/dry OBJ DATA Labs CBC & Chem 7: 08/12/22 05:20 08/13/22 05:13 Labs: Abnormal Lab Results 08/13/22 08/12/22 08/12/22 05:13 10:05 07:44 WBC Hgb Hct POC Hct MCHC RDW Plt Count Immature Gran % (Auto) Neut % (Auto) Lymph % (Auto) Lymph # (Auto) Dade # (Auto) Seg Neutrophils % Lymphocytes % Immature Gran # Absolute Neutrophils RBC Morphology Hypochromasia Anisocytosis ESR 75 H D-Dimer POC VBG pH POC VBG pCO2 at Temp POC VBG pO2 POC VBG HCO3 POC VBG Total CO2 POC Venous O2 Sat POC VBG Base Excess VBG Lactic Acid POC Chloride Chloride 110 H Carbon Dioxide 21 L 19 L POC Total CO2 Anion Gap POC BUN BUN 24 H Creatinine 1.2 H POC Creatinine Glucose 153 H POC Glucose Calcium 8.0 L 7.9 L POC WB Ioniz Calcium Magnesium GGT 96 H AST Alkaline Phosphatase Lactate Dehydrogenase C-Reactive Protein 6.40 H NT-Pro-B Natriuret Pep Total Protein 5.3 L Albumin 2.2 L Albumin/Globulin Ratio 0.7 L Triglycerides 191 H Urine Appearance Urine Protein Urine Occult Blood Urine Nitrate Ur Leukocyte Esterase Urine RBC Urine WBC Ur Squamous Epith Cells Urine Bacteria 08/12/22 08/12/22 08/11/22 05:20 05:20 05:14 WBC 14.6 H Hgb 10.8 L Hct POC Hct MCHC 30.8 L 30.9 L RDW 15.5 H 16.0 H Plt Count Immature Gran % (Auto) 0.6 H Neut % (Auto) Lymph % (Auto) 13.2 L Lymph # (Auto) 1.32 L Dade # (Auto) Seg Neutrophils % 80 H Lymphocytes % 3 L Immature Gran # 0.06 H Absolute Neutrophils RBC Morphology Abnormal A Hypochromasia Rare A Anisocytosis Rare A ESR D-Dimer POC VBG pH POC VBG pCO2 at Temp POC VBG pO2 POC VBG HCO3 POC VBG Total CO2 POC Venous O2 Sat POC VBG Base Excess VBG Lactic Acid POC Chloride Chloride Carbon Dioxide POC Total CO2 Anion Gap POC BUN BUN Creatinine POC Creatinine Glucose POC Glucose Calcium POC WB Ioniz Calcium Magnesium GGT AST Alkaline Phosphatase Lactate Dehydrogenase C-Reactive Protein 15.10 H NT-Pro-B Natriuret Pep Total Protein Albumin Albumin/Globulin Ratio Triglycerides Urine Appearance Urine Protein Urine Occult Blood Urine Nitrate Ur Leukocyte Esterase Urine RBC Urine WBC Ur Squamous Epith Cells Urine Bacteria 08/11/22 08/10/22 08/10/22 05:13 15:00 13:54 WBC Hgb Hct POC Hct MCHC RDW Plt Count Immature Gran % (Auto) Neut % (Auto) Lymph % (Auto) Lymph # (Auto) Dade # (Auto) Seg Neutrophils % Lymphocytes % Immature Gran # Absolute Neutrophils RBC Morphology Hypochromasia Anisocytosis ESR D-Dimer POC VBG pH POC VBG pCO2 at Temp POC VBG pO2 POC VBG HCO3 POC VBG Total CO2 POC Venous O2 Sat POC VBG Base Excess VBG Lactic Acid 4.3 H* POC Chloride Chloride Carbon Dioxide 20 L POC Total CO2 Anion Gap POC BUN BUN 32 H Creatinine 2.0 H POC Creatinine Glucose POC Glucose Calcium 8.1 L POC WB Ioniz Calcium Magnesium 1.3 L GGT 105 H AST Alkaline Phosphatase Lactate Dehydrogenase 239 H C-Reactive Protein NT-Pro-B Natriuret Pep Total Protein 5.2 L Albumin 2.4 L Albumin/Globulin Ratio 0.9 L Triglycerides 152 H Urine Appearance Turbid A Urine Protein 300(3+) A Urine Occult Blood 3+(large) A Urine Nitrate Positive A Ur Leukocyte Esterase 3+(large) A Urine RBC > 182 H Urine WBC > 182 H Ur Squamous Epith Cells 13 H Urine Bacteria Many A 08/10/22 08/10/22 08/10/22 12:01 12:00 12:00 WBC 23.8 H Hgb Hct 46.2 H POC Hct MCHC RDW 17.3 H Plt Count 459 H Immature Gran % (Auto) Neut % (Auto) 82.6 H Lymph % (Auto) 8.0 L Lymph # (Auto) Dade # (Auto) 2.01 H Seg Neutrophils % Lymphocytes % Immature Gran # 0.10 H Absolute Neutrophils 19.65 H RBC Morphology Hypochromasia Anisocytosis ESR D-Dimer 0.89 H POC VBG pH POC VBG pCO2 at Temp POC VBG pO2 POC VBG HCO3 POC VBG Total CO2 POC Venous O2 Sat POC VBG Base Excess VBG Lactic Acid POC Chloride Chloride Carbon Dioxide 20 L POC Total CO2 Anion Gap 17.0 H POC BUN BUN 31 H Creatinine 3.0 H POC Creatinine Glucose 133 H POC Glucose Calcium POC WB Ioniz Calcium Magnesium GGT AST 50 H Alkaline Phosphatase 140 H Lactate Dehydrogenase C-Reactive Protein 8.00 H NT-Pro-B Natriuret Pep 1148.0 H Total Protein Albumin 3.1 L Albumin/Globulin Ratio 0.8 L Triglycerides Urine Appearance Urine Protein Urine Occult Blood Urine Nitrate Ur Leukocyte Esterase Urine RBC Urine WBC Ur Squamous Epith Cells Urine Bacteria 08/10/22 08/10/22 11:47 11:41 WBC Hgb Hct POC Hct 49.0 H MCHC RDW Plt Count Immature Gran % (Auto) Neut % (Auto) Lymph % (Auto) Lymph # (Auto) Dade # (Auto) Seg Neutrophils % Lymphocytes % Immature Gran # Absolute Neutrophils RBC Morphology Hypochromasia Anisocytosis ESR D-Dimer POC VBG pH 7.44 H POC VBG pCO2 at Temp 30.2 L POC VBG pO2 63 H POC VBG HCO3 20.3 L POC VBG Total CO2 21.0 L POC Venous O2 Sat 93.0 H POC VBG Base Excess -4.0 L VBG Lactic Acid 2.6 H POC Chloride 109 H Chloride Carbon Dioxide POC Total CO2 20.0 L Anion Gap POC BUN 35 H BUN Creatinine POC Creatinine 3.2 H Glucose POC Glucose 139 H Calcium POC WB Ioniz Calcium 1.10 L Magnesium GGT AST Alkaline Phosphatase Lactate Dehydrogenase C-Reactive Protein NT-Pro-B Natriuret Pep Total Protein Albumin Albumin/Globulin Ratio Triglycerides Urine Appearance Urine Protein Urine Occult Blood Urine Nitrate Ur Leukocyte Esterase Urine RBC Urine WBC Ur Squamous Epith Cells Urine Bacteria Meds: Medications Acetaminophen (Acetaminophen 325 Mg Tablet) 650 mg PO Q6HP PRN; Protocol PRN Reason: Per Pain Protocol/Fever > 101 Last Admin: 08/12/22 21:05 Dose: 650 mg Albuterol/Ipratropium (Ipratropium/Albuterol 3 Ml Ampul.Neb) 3 ml NEB Q4HP PRN PRN Reason: Shortness Of Breath Apixaban (Apixaban 5 Mg Tablet) 5 mg PO BID LOVE Last Admin: 08/12/22 21:05 Dose: 5 mg Calamine/Phenol (Menthol/Zinc Oxide Oint.Top 113 Gm) 1 dose TOPICAL QIDP PRN PRN Reason: prevention of pressure sores Docusate Sodium (Docusate Sodium 100 Mg Capsule) 100 mg PO BID [facility] Last Admin: 08/12/22 21:06 Dose: 100 mg Gabapentin (Gabapentin 300 Mg Capsule) 600 mg PO 0900,1500 [facility] Last Admin: 08/12/22 15:36 Dose: 600 mg Gabapentin (Gabapentin 300 Mg Capsule) 900 mg PO QHS [facility] Last Admin: 08/12/22 21:05 Dose: 900 mg Potassium Chloride 40 meq/ (Dextrose) 520 mls @ 130 mls/hr IV UD PRN PRN Reason: Potassium < 3 Magnesium Sulfate (Magnesium Sulfate) 2 gm in 50 mls @ 50 mls/hr IV UD PRN PRN Reason: Magnesium </= 1.6 Last Infusion: 08/11/22 11:14 Dose: Infused Vancomycin HCl 1,000 mg/ (Sodium Chloride) 250 mls @ 250 mls/hr IV Q12H [facility] Last Infusion: 08/12/22 22:10 Dose: Infused Meropenem 0.5 gm/ Sodium (Chloride) 50 mls @ 100 mls/hr IV Q6H [facility]; Protocol Last Infusion: 08/13/22 06:36 Dose: Infused Lactobacillus Rhamnosus (Lactobacillus 1 Capsule) 1 cap PO QDAY [facility] Last Admin: 08/12/22 09:33 Dose: 1 cap Morphine Sulfate (Morphine 15 Mg Tab.Sr.12h) 15 mg PO Q12H [facility]; Protocol Last Admin: 08/12/22 21:12 Dose: 15 mg Ondansetron HCl (Ondansetron 4 Mg/2 Ml Vial) 4 mg IV Q4HP PRN PRN Reason: Nausea And Vomiting Oxcarbazepine 150 Mg (Tablet) 1 dose PO HS [facility] Last Admin: 08/12/22 21:06 Dose: 1 dose Polyethylene Glycol (Polyethylene Glycol 3350 17 Gm Packet) 17 gm PO DAILYP PRN PRN Reason: Constipation Potassium Chloride (Potassium Chloride 20 Meq Tablet) 40 meq PO UD PRN PRN Reason: Potssium is 3-3.5 Last Admin: 08/12/22 09:34 Dose: 40 meq Potassium Chloride (Potassium Chloride 20 Meq Tablet) 40 meq PO UD PRN PRN Reason: Potassium < 3 Senna (Sennosides 1 Tablet) 2 tab PO DAILYP PRN PRN Reason: Constipation Sodium Chloride (0.9 % Sodium Chloride 10 Ml Syringe) 10 ml IV Q8 LOVE Last Admin: 08/13/22 06:16 Dose: 10 ml Tolterodine Tartrate (Tolterodine 2 Mg Cap.Xl.24h) 2 mg PO QDAY PRN PRN Reason: Bladder control Last Admin: 08/11/22 08:32 Dose: 2 mg Vancomycin HCl (Vancomycin Per Pharmacy) 1 order IV UD [facility]; Protocol A/P Narrative A/P Narrative: A: *severe Sepsis: Source likely and chronic sacral decubitus ulcer with infe ction and ?Osteo of coccyx -leukocytosis improving *Hypotension: 2/2 above, improved *Hyperlactatemia: resolved *UTI (Proteus & Enteroccocus -ESBL resistant organisms, and E.coli): *Bacteremia(GPC): 1/4 bottles so far, pending final *Large sacral decubitus ulcer w/diverting colostomy: wound infection and Osto of coccyx per mri -Patient recently taken off hospice because she was doing better including her ulcer healing -WC with Proteus mirabilis (resistant organism) *LOS w/volume depletion: 2/2 above -improved *Hypomagnesemia: improved *h/o multiple sclerosis w/paraplegia: *Neurogenic bladder: Chronic Luu *Poor functional status: Patient is bedbound *Chr Pain + h/o trigeminal Neuralgia: on Oxcarbazepine *Goals of care: Patient recently taken off hospice because of improvement P: -per ID, cont Vanc until BC return, zosyn to merrem, treat for soft tissue infection for 10-days, pending BC/UC/WC -change luu to purewick at least while inpt -ID consult following -Follow-up renal function, uop, i/o -f/u chemistry/cbc, monitor and replace electrolytes -Wound care team consult -Chronic pain medications -PT/OT -CM for placement needs -ppx: home apixaban DNR Time Spent With Patient Time: Total time spent is greater than 50% in coordination of care (as documented) at patient's floor/unit and/or counseling patient:
[2022-08-13] MEDS: GABAPENTIN 300 MG CAPSULE PO SCH ×3 (09:22→20:04)
[2022-08-13] MEDS: APIXABAN 5 MG TABLET PO SCH ×2 (09:22→20:04)
[2022-08-13] MEDS: morphine 15 MG TAB.SR.12H PO SCH ×2 (09:22→20:05)
[2022-08-13] MEDS: DOCUSATE SODIUM 100 MG CAPSULE PO SCH ×2 (09:22→20:04)
[2022-08-13] MEDS: LACTOBACILLUS 1 CAPSULE PO SCH (09:22)
[2022-08-13] MEDS: VANCOMYCIN 1,000 MG in 0.9 % SODIUM CHLORIDE 250 ML IV SCH (11:04)
--- NOTE | 2022-08-13 20:01 | Discharge Summary ---
Discharge Provider Provider IMPORTANT FOLLOW-UP INFORMATION FOR PCP: Patient information: Note initiated : 08/13/22 at 7:59 pm Service Date, if different from initiated Date: [] Patient: Bridgette Cuevas 67 y/o F admitted on 08/10/22 for fever, tachycardic, decreased urine output. Chief Complaint: [] Date of admission: 08/10/22 14:36 Discharge date: 08/14/22 Primary care physician: Christy Almeida Consults: 08/10/22 Consult to Physician [CONS] Stat Comment: Consulting Provider: Willis Leigh Reason For Exam: Physician to Consult 08/10/22 16:21 Consult to Physician [CONS] Routine Comment: Sacral wound eval Consulting Provider: Michele Romero Reason For Exam: Physician to Consult 08/12/22 11:03 Consult to Physician [CONS] Routine Comment: Chronic sacral wound infection with Osteomyelitis Consulting Provider: Cisco Patino Reason For Exam: Physician to Consult COURSE Hospital Course Hospital course: History of present illness: Ms. Cuevas is a 67 year old F Brought into the ED for weakness decreased level of consciousness. She lives at home with family. She was recently taken off hospice because she was doing well. And her sacral decubitus wound was improving. However she is also developed decreased level conscious with past couple days weakness decreased urine output. Family says her urine which always looks dirty as dirty or than usual. Patient denies fever chills. She was tachycardic when she came in she was febrile at 102. Leukocytosis. Had acute kidney injury with a creatinine 3 0 CRP of 18 a lactate of 2.6. Blood pressure fluctuating systolic between the 90s and 100s. Has a chronic indwelling catheter for chronic wounds multiple sclerosis likely neurogenic bladder. Looks like she is on Bactrim for chronic UTIs. She is also on Eliquis the family says because she is bedbound and did not report any history of DVTs or atrial fibrillation. 08/11 Patient hypotensive at times last night, as needed vasopressors ordered but not yet needed. Little better today. Lactic acidosis worsened and then improving today. Leukocytosis. Acute kidney injury creatinine slowly improving. Hypomagnesemia 1.3. 08/12 MRI showed cellulitis and osteomyelitis of the coccyx. Patient says she is still very weak. Blood pressure soft but stable. Leukocytosis improving. Renal function improving. Still metabolic acidosis. Urine culture with gram- negative bacillus and blood cultures gram-positive cocci. Repeat blood cultures in the morning. I explained that the treatment of osteomyelitis will be long-term antibiotics. Patient would like to undergo this treatment as required. I addressed CODE STATUS with her and her and she decided to stay DNR as per her [facility] CODE STATUS 08/13 Patient feeling a little bit better today. Seen by infectious disease yesterday. See note. Renal function and CRP improved. 08/14 Patient seems to feel a little better each day. Cultures came back with urine and wound culture with Proteus Enterococcus E. coli. ESBL organisms. Blood culture coag negative staph in 1 bottle, contaminant. Vital signs stable. Obtain final recommendations from infectious disease. Will Transition to Swing Bed status High risk for readmission given hospitalizations and comorbidities A: *severe Sepsis: Source likely and chronic sacral decubitus ulcer with infection and ?Osteo of coccyx -leukocytosis improving *Hypotension: 2/2 above, improved *Hyperlactatemia: resolved *UTI (Proteus & Enteroccocus -ESBL resistant organisms, and E.coli): *Large sacral decubitus ulcer w/diverting colostomy: wound infection and Osto of coccyx per mri -Patient recently taken off hospice because she was doing better including her ulcer healing - withProteus mirabilis (resistant organism) *LOS w/volume depletion: 2/2 above -improved *Hypomagnesemia: improved *h/o multiple sclerosis w/paraplegia: *Neurogenic bladder: Chronic Barba *Poor functional status: Patient is bedbound *Chr Pain + h/o trigeminal Neuralgia: on Oxcarbazepine *Goals of care: Patient recently taken off hospice because of improvement P: -per ID, cont Vanc until return, zosyn to merrem, treat for soft tissue infection for 10-days, pending BC/UC/WC -f/u wound care team Discharge diagnosis: Severe sepsis UTI sacral decubitus ulcer infection LOS electrolyte disorder Secondary discharge diagnosis: Multiple sclerosis neurogenic bladder poor functional status chronic pain Time Spent with Patient Time attestation: Total time spent providing and/or coordinating discharge services: Time spent: Greater than 30 minutes EXAM Constitutional Vitals: Temp Pulse Resp BP Pulse Ox O2 Del Method O2 Flow Rate 98.8 F 61 13 111/68 97 0 12/15/22 16:00 08/13/22 16:01 08/13/22 16:01 08/13/22 16:01 08/13/22 16:01 08/13/22 06:02 08/12/22 00:05 Discharge Data Data Completed and Pending Labs on day of discharge: Labs from last 24 hours 08/13/22 08/13/22 08:12 05:13 Sodium 140 Potassium 3.8 Chloride 110 H Carbon Dioxide 21 L Anion Gap 9.0 BUN 17 Creatinine 0.8 GFR Calculation 77 Glucose 98 Calcium 8.0 L C-Reactive Protein 6.40 H Vancomycin Trough 14.7 Preliminary micro results at discharge 08/10/22 11:40 Blood Culture - Preliminary Blood Coagulase negative staph 08/10/22 11:49 Blood Culture - Preliminary Blood 08/10/22 13:54 Urine Culture - Preliminary Urine - Catheterized Escherichia coli Enterococcus faecium (grp d) Proteus mirabilis#2 Discharge Plan Patient/Caregiver Discharge Instructions Prescriptions: Continued apixaban 5 mg tablet 5 mg PO BID tolterodine 2 mg Capsule,Extended Release 24hr 2 mg PO QDAY PRN (Reason: Bladder control) oxcarbazepine 150 mg Tablet 150 mg PO HS sulfamethoxazole-trimethoprim 400-80 mg Tablet 1 tab PO QDAY docusate sodium 100 mg Capsule 100 mg PO BID gabapentin 300 mg Capsule 600 mg PO 0900,1500 gabapentin 300 mg Capsule 900 mg PO QHS morphine 15 mg Tablet Extended Release 15 mg PO Q12H ondansetron 4 mg Tablet,Disintegrating 4 mg PO Q6H PRN (Reason: Nausea) menthol-zinc oxide [Calmoseptine] 0.44-20.6 % Ointment 1 applic TOPICAL QID PRN (Reason: prevention of pressure sores) Fortify Probiotic 50 billion cell-50 mg Capsule,Delayed Release(Dr/Ec) 1 cap PO QDAY Follow Up Plan Follow up with: Christy Almeida MD [Primary Care Provider] - Disposition: Xfer As Swing Bed ([facility]) Prognosis: Undetermined Discharge Orders: Discharge Order (Routine); Ordered 08/14/22 Ordered By: Willis Leigh
[2022-08-14] MEDS: 0.9 % SODIUM CHLORIDE 10 ML SYRINGE IV SCH ×3 (00:08→12:21)
[2022-08-14] MEDS: MEROPENEM 0.5 GM in 0.9 % SODIUM CHLORIDE 50 ML IV SCH ×3 (00:08→12:21)
--- NOTE | 2022-08-14 08:28 | Internal Med Progress Note ---
SUBJECTIVE Subjective Patient information: Note initiated : 08/14/22 at 8:26 am Service Date, if different from initiated Date: [] Patient: Bridgette Cuevas a 67 y/o F admitted on 08/10/22 for fever, tachycardic, decreased urine output. Chief Complaint: [] Interval history: History of present illness: Ms. Cuevas is a 67 year old F Brought into the ED for weakness decreased level of consciousness. She lives at home with family. She was recently taken off hospice because she was doing well. And her sacral decubitus wound was improving. However she is also developed decreased level conscious with past couple days weakness decreased urine output. Family says her urine which always looks dirty as dirty or than usual. Patient denies fever chills. She was tachycardic when she came in she was febrile at 102. Leukocytosis. Had acute kidney injury with a creatinine 3 0 CRP of 18 a lactate of 2.6. Blood pressure fluctuating systolic between the 90s and 100s. Has a chronic indwelling catheter for chronic wounds multiple sclerosis likely neurogenic bladder. Looks like she is on Bactrim for chronic UTIs. She is also on Eliquis the family says because she is bedbound and did not report any history of DVTs or atrial fibrillation. 08/11 Patient hypotensive at times last night, as needed vasopressors ordered but not yet needed. Little better today. Lactic acidosis worsened and then improving today. Leukocytosis. Acute kidney injury creatinine slowly improving. Hypomagnesemia 1.3. 08/12 MRI showed cellulitis and osteomyelitis of the coccyx. Patient says she is still very weak. Blood pressure soft but stable. Leukocytosis improving. Renal function improving. Still metabolic acidosis. Urine culture with gram-negative bacillus and blood cultures gram-positive cocci. Repeat blood cultures in the morning. I explained that the treatment of osteomyelitis will be long-term antibiotics. Patient would like to undergo this treatment as required. I addressed CODE STATUS with her and her and she decided to stay DNR as per her [facility] CODE STATUS 08/13 Patient feeling a little bit better today. Seen by infectious disease yesterday. See note. Renal function and CRP improved. 08/14 Patient seems to feel a little better each day. Cultures came back with urine and wound culture with Proteus Enterococcus E. coli. ESBL organisms. Blood culture coag negative staph in 1 bottle, contaminant. Vital signs stable. Obtain final recommendations from infectious disease. Review of Systems: denies headache/fever/chills/nausea/vomiting/chest or abdominal pain/cough/dyspnea/diarrhea. Otherwise see above. Constitutional Vitals: Vital Signs Temp Pulse Resp BP Pulse Ox O2 Del Method O2 Flow Rate 96.8 F L 64 16 115/64 99 2 08/14/22 07:24 08/14/22 04:00 08/14/22 07:24 08/14/22 07:24 08/14/22 07:24 08/14/22 07:24 08/14/22 07:24 Period Temp Pulse Resp BP Sys/Jeter Pulse Ox O2 Del Method O2 Flow Rate Last 24 Hr 96.8 F-98.8 F 58-69 - 98-135/64-80 94-100 Nasal Cannula- Room Air 2 Intake and Output 08/13/22 08/14/22 08/14/22 19:59 03:59 11:59 Intake Total 590 290 290 Output Total 220 100 575 Balance 370 190 -285 Intake & Output: Intake & Output 08/13/22 08/14/22 08/14/22 19:59 03:59 11:59 Intake Total 590 290 290 Output Total 220 100 575 Balance 370 190 -285 Intake: IV 350 50 50 Merrem 0.5 gm In Sodium 100 50 50 Chloride 0.9% 50 ml @ 100 mls/ hr IV Q6H LOVE Rx#:[id number] Vancomycin 1,000 mg In Sodium 250 Chloride 0.9% 250 ml @ 250 mls/ hr IV Q12H LOVE Rx#:[id number] Oral 240 240 240 Output: Urine Catheter Amount 20 Void Amount 475 Stool 200 100 100 Other: Meal Lunch Percent of Meal Consumed 50% Feeding Ability Total Assistance Urine Appearance Clear Clear Clear Urine Color Dark Doris Dark Yellow Yellow Pale Urine Odor Normal Stool Size Small Small Stool Color Brown Brown Stool Consistency Soft Soft Exam: General: Alert, Awake, No acute Distress Eyes/N/T: EOMI, Head/Neck: neck supple, CV: RRR, No murmurs, Pulm: Clear b/l, no wheezing/rhonchi/rales Abd: soft, nontender, +BS x4 Ext: no clubbing/cyanosis/edema Back: Large open decubitus sacral ulcer : Luu replaced in ED, urine now clear Neuro: Alert, no focal deficits, moves all extremities, Skin: warm/dry OBJ DATA Labs CBC & Chem 7: 08/12/22 05:20 08/13/22 05:13 Labs: Abnormal Lab Results 08/13/22 08/12/22 08/12/22 05:13 10:05 07:44 MCHC RDW Immature Gran % (Auto) Lymph % (Auto) Lymph # (Auto) Seg Neutrophils % Lymphocytes % Immature Gran # RBC Morphology Hypochromasia Anisocytosis ESR 75 H Chloride 110 H Carbon Dioxide 21 L 19 L BUN 24 H Creatinine 1.2 H Glucose 153 H Calcium 8.0 L 7.9 L GGT 96 H C-Reactive Protein 6.40 H Total Protein 5.3 L Albumin 2.2 L Albumin/Globulin Ratio 0.7 L Triglycerides 191 H 08/12/22 08/12/22 08/11/22 05:20 05:20 05:14 MCHC 30.8 L RDW 15.5 H Immature Gran % (Auto) 0.6 H Lymph % (Auto) 13.2 L Lymph # (Auto) 1.32 L Seg Neutrophils % 80 H Lymphocytes % 3 L Immature Gran # 0.06 H RBC Morphology Abnormal A Hypochromasia Rare A Anisocytosis Rare A ESR Chloride Carbon Dioxide BUN Creatinine Glucose Calcium GGT C-Reactive Protein 15.10 H Total Protein Albumin Albumin/Globulin Ratio Triglycerides Meds: Medications Acetaminophen (Acetaminophen 325 Mg Tablet) 650 mg PO Q6HP PRN; Protocol PRN Reason: Per Pain Protocol/Fever > 101 Last Admin: 08/12/22 21:05 Dose: 650 mg Albuterol/Ipratropium (Ipratropium/Albuterol 3 Ml Ampul.Neb) 3 ml NEB Q4HP PRN PRN Reason: Shortness Of Breath Apixaban (Apixaban 5 Mg Tablet) 5 mg PO BID [facility] [place] Last Admin: 08/13/22 20:04 Dose: 5 mg Calamine/Phenol (Menthol/Zinc Oxide Oint.Top 113 Gm) 1 dose TOPICAL QIDP PRN PRN Reason: prevention of pressure sores Docusate Sodium (Docusate Sodium 100 Mg Capsule) 100 mg PO BID [facility] [place] Last Admin: 08/13/22 20:04 Dose: 100 mg Gabapentin (Gabapentin 300 Mg Capsule) 600 mg PO 0900,1500 [facility] [place] Last Admin: 08/13/22 16:11 Dose: 600 mg Gabapentin (Gabapentin 300 Mg Capsule) 900 mg PO QHS [facility] [place] Last Admin: 08/13/22 20:04 Dose: 900 mg Potassium Chloride 40 meq/ (Dextrose) 520 mls @ 130 mls/hr IV UD PRN PRN Reason: Potassium < 3 Magnesium Sulfate (Magnesium Sulfate) 2 gm in 50 mls @ 50 mls/hr IV UD PRN PRN Reason: Magnesium </= 1.6 Last Infusion: 08/11/22 11:14 Dose: Infused Meropenem 0.5 gm/ Sodium (Chloride) 50 mls @ 100 mls/hr IV Q6H [facility] [place]; Protocol Last Infusion: 08/14/22 06:55 Dose: Infused Lactobacillus Rhamnosus (Lactobacillus 1 Capsule) 1 cap PO QDAY [facility] [place] Last Admin: 08/13/22 09:22 Dose: 1 cap Morphine Sulfate (Morphine 15 Mg Tab.Sr.12h) 15 mg PO Q12H [facility] [place]; Protocol Last Admin: 08/13/22 20:05 Dose: 15 mg Ondansetron HCl (Ondansetron 4 Mg/2 Ml Vial) 4 mg IV Q4HP PRN PRN Reason: Nausea And Vomiting Oxcarbazepine 150 Mg (Tablet) 1 dose PO HS [facility] [place] Last Admin: 08/13/22 20:05 Dose: 1 dose Polyethylene Glycol (Polyethylene Glycol 3350 17 Gm Packet) 17 gm PO DAILYP PRN PRN Reason: Constipation Potassium Chloride (Potassium Chloride 20 Meq Tablet) 40 meq PO UD PRN PRN Reason: Potssium is 3-3.5 Last Admin: 08/12/22 09:34 Dose: 40 meq Potassium Chloride (Potassium Chloride 20 Meq Tablet) 40 meq PO UD PRN PRN Reason: Potassium < 3 Senna (Sennosides 1 Tablet) 2 tab PO DAILYP PRN PRN Reason: Constipation Sodium Chloride (0.9 % Sodium Chloride 10 Ml Syringe) 10 ml IV Q8 [facility] [place] Last Admin: 08/14/22 05:30 Dose: 10 ml Tolterodine Tartrate (Tolterodine 2 Mg Cap.Xl.24h) 2 mg PO QDAY PRN PRN Reason: Bladder control Last Admin: 08/11/22 08:32 Dose: 2 mg A/P Narrative A/P Narrative: A: *severe Sepsis: Source likely and chronic sacral decubitus ulcer with infection and ?Osteo of coccyx -leukocytosis improving -resolved *Hypotension: 2/2 above, improved *Hyperlactatemia: resolved *UTI (Proteus & Enteroccocus, E.coli. - ESBL organisms): *Bacteremia: 09/02 coag neg staph, contaminant *Large sacral decubitus ulcer w/diverting colostomy: wound infection and ?Osto of coccyx per mri vs old changes -Patient recently taken off hospice because she was doing better including her ulcer healing -WC with Proteus mirabilis (resistant organism) *LOS w/volume depletion: 2/2 above -improved *Hypomagnesemia: improved *h/o multiple sclerosis w/paraplegia: *Neurogenic bladder: Chronic Luu *Poor functional status: Patient is bedbound *Chr Pain + h/o trigeminal Neuralgia: on Oxcarbazepine *Goals of care: Patient recently taken off hospice because of improvement P: -per ID, likely Ertapenem and zyvox for 10 more days -change luu to purewick at least while inpt -ID consult following, pending further recs -Follow-up renal function, uop, i/o -Wound care team consult -Chronic pain medications -PT/OT -CM for placement needs -ppx: home apixaban DNR Time Spent With Patient Time: Total time spent is greater than 50% in coordination of care (as documented) at patient's floor/unit and/or counseling patient: Total time spent with greater than 50% in coordination of care (as documented) at patient's floor/unit and/or counseling patient:: 25 - 35 minutes
[2022-08-14] MEDS: LACTOBACILLUS 1 CAPSULE PO SCH (08:44)
[2022-08-14] MEDS: morphine 15 MG TAB.SR.12H PO SCH (08:44)
[2022-08-14] MEDS: DOCUSATE SODIUM 100 MG CAPSULE PO SCH (08:44)
[2022-08-14] MEDS: APIXABAN 5 MG TABLET PO SCH (08:44)
[2022-08-14] MEDS: GABAPENTIN 300 MG CAPSULE PO SCH (08:44)
== END 2022-08-14 13:14 | disposition swing bed (61) | DRG 871 ==
LOC: ED 10:59 → ICU 14:36 → MEDSUR 08-13 17:52
PROVIDERS: ADMIT Internal Medicine; ATTEND Internal Medicine